=== PATIENT | female | born 1930 | race Caucasian/White ===

== ENCOUNTER 2016-11-13 11:39 | Emergency (ER) | payer MEDICARE, MEDICAID ==
[~2016-11-13] VITALS: Ht 162.6 cm; Wt 77.1 kg
[2016-11-13 12:06] LABS: MEAN PLATELET VOLUME 10.2 FL (7.4-10.4); RED BLOOD COUNT 3.38 10^6/uL (4.35-5.85); RED CELL DISTRIBUTION WIDTH 14.1 % (10.0-14.5); WHITE BLOOD COUNT 7.5 10^3/uL (4.3-11.0)
--- NOTE | 2016-11-13 12:41 | ED EENT ---
History of Present Illness General Chief Complaint: Nasal Problems Stated Complaint: NOSE BLEED Nursing Triage Note: PT HAS NOSE BLEED IN R NARES, PT FROM [place], STAFF STATES BEEN BLEEDING ON AND OFF FOR APPROX 4 HOURS Source: patient, caregiver Exam Limitations: no limitations (TIN MERRITT) History of Present Illness Time seen by provider: 11:55 Initial Comments Patient seen, evaluated, and patient care provided by Dr. Brant Zamora MD. (TIN MERRITT) Initial Comments Here from Dr. Cheek's office where patient was having nosebleed evaluated that started earlier this morning. Patient apparently Trying to blow her nose. He did use nitrate sticks and that did not stop the bleeding. Sent her here for further evaluation. Patient denies any specific pain. Nose clamp applied on arrival. Blood was from left nare. Timing/Duration: abrupt Severity: moderate Location: nose Prearrival Treatment: other Associated Symptoms: coughNo fever, nasal congestion/drainageNo sore throat ( FARHAN ZAMORA MD) Allergies and Home Medications Allergies Coded Allergies: levofloxacin (Unverified Allergy, Unknown, 10/30/16) Review of Systems Constitutional: see HPINo chills, No fever Eyes: No Symptoms Reported Ears: No Symptoms Reported Nose: see HPI congestion epistaxis Mouth: no symptoms reported Throat: no symptoms reported Respiratory: see HPI coughNo short of breath Cardiovascular: no symptoms reported Gastrointestinal: no symptoms reported (FARHAN ZAMORA MD) Past Zaqdqzq-Vyayxq-Hldejg Hx Patient Social History Alcohol Use: Denies Use Recreational Drug Use: No Smoking Status: Never a Smoker Recent Foreign Travel: No Contact w/Someone Who Travel: No Recent Infectious Disease Expo: No Recent Hopitalizations: No Physical Abuse Screen: No Sexual Abuse: No (TIN MERRITT) Alcohol Use: Denies Use Recreational Drug Use: No Smoking Status: Never a Smoker (FARHAN ZAMORA MD) Immunizations Up To Date Date of Influenza Vaccine: Aug 11, 2016 (TIN MERRITT) Seasonal Allergies Seasonal Allergies: No (TIN MERRITT) Surgeries HX Surgeries: No (UNKNOWN) (TIN MERRITT) Respiratory Hx Respiratory Disorders: No (TIN MERRITT) Hx Respiratory Disorders: No (FARHAN ZAMORA MD) Cardiovascular Hx Cardiac Disorders: Yes Cardiac Disorders: Hypertension (TIN MERRITT) Hx Cardiac Disorders: Yes Cardiac Disorders: Hypertension (FARHAN ZAMORA MD) Neurological Hx 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) Neurological Disorders: Parkinson's Disease (TIN MERRITT) Hx Neurological Disorders: Yes Neurological Disorders: Parkinson's Disease (FARHAN ZAMORA MD) Reproductive System Hx Reproductive Disorders: No (TIN MERRITT) Genitourinary Hx Genitourinary Disorders: Yes Genitourinary Disorders: Bladder Infection (TIN MERRITT) Hx Genitourinary Disorders: Yes Genitourinary Disorders: Bladder Infection (FARHAN ZAMORA MD) Gastrointestinal Hx Gastrointestinal Disorders: Yes Gastrointestinal Disorders: Gastroesophageal Reflux, Chronic Constipation (TIN MERRITT) Hx Gastrointestinal Disorders: Yes Gastrointestinal Disorders: Gastroesophageal Reflux (FARHAN ZAMORA MD) Musculoskeletal Hx Musculoskeletal Disorders: Yes (restless legs syndrome, generalized weakness ) (TIN MERRITT) Hx Musculoskeletal Disorders: Yes Musculoskeletal Disorders: Fractures (FARHAN ZAMORA MD) Endocrine Hx Endocrine Disorders: Yes Endocrine Disorders: Hypothyroidsim (TIN MERRITT) Hx Endocrine Disorders: Yes Endocrine Disorders: Hypothyroidsim (FARHAN ZAMORA MD) HEENT HX ENT Disorders: No (TIN MERRITT) HX ENT Disorders: Yes (FARHAN ZAMORA MD) Cancer Hx Cancer: No (TIN MERRITT) Psychosocial Hx Psychiatric Problems: Yes Behavioral Health Disorders: Anxiety, Depression (TIN MERRITT) Hx Psychiatric Problems: Yes Behavioral Health Disorders: Anxiety (FARHAN ZAMORA MD) Integumentary HX Skin/Integumentary Disorder: No (TIN MERRITT) Blood Transfusions Hx Blood Disorders: No (TIN MERRITT) Reviewed Nursing Assessment Reviewed/Agree w Nursing PMH: Yes (FARHAN ZAMORA MD) Physical Exam Vital Signs Vital Sign - Last 12Hours 11/13/16 11:45 Temp 97.8 Pulse 68 Resp 18 B/P 185/98 Pulse Ox 94 (FARHAN ZAMORA MD) General Appearance: WD/WN no apparent distress Eyes: bilateral eye EOMI, bilateral eye PERRL, bilateral eye normal inspection Nose: active bleeding (left nail with some blood) other (left naris some blood that stops with anterior nasal clamp) Mouth/Throat: normal mouth inspection pharynx normal Neck: full range of motion supple Cardiovascular: regular rate, rhythm no murmur Respiratory: lungs clear normal breath sounds Gastrointestinal: non tender soft Neurologic/Psychiatric: alert normal mood/affect (FARHAN ZAMORA MD) Progress/Results/Core Measures Results/Orders Lab Results Laboratory Tests Test 11/13/16 12:00 Range/Units Hematocrit 37 35-52 % Hemoglobin 12.3 11.5-16.0 G/DL Mean Corpuscular Hemoglobin 36 H 25-34 PG Mean Corpuscular Hemoglobin Concent 33 32-36 G/DL Mean Corpuscular Volume 111 H 80-99 FL Mean Platelet Volume 10.2 7.4-10.4 FL Platelet Count 267 130-400 10^3/uL Red Blood Count 3.38 L 4.35-5.85 10^6/uL Red Cell Distribution Width 14.1 10.0-14.5 % White Blood Count 7.5 4.3-11.0 10^3/uL (FARHAN ZAMORA MD) My Orders Orders-FARHAN ZAMORA MD Cbc No Diff (11/13/16 11:50) (FARHAN ZAMORA MD) Vital Signs/I&O Vital Sign - Last 12Hours 11/13/16 11:45 Temp 97.8 Pulse 68 Resp 18 B/P 185/98 Pulse Ox 94 (FARHAN ZAMORA MD) Blood Pressure Mean: 127 Progress Note : Progress Note Seen and evaluated. Nasal clamp applied. CBC ordered. No acute findings. Monitor patient. (FARHAN ZAMORA MD) Departure Impression Impression: Primary Impression: Epistaxis Disposition: SNF Condition: Improved Departure-Patient Inst. Decision time for Depature: 13:44 (TIN MERRITT) Referrals: MISAEL CHEEK MD (PCP/Family) Primary Care Physician Patient Instructions: Nosebleeds (DC) Add. Discharge Instructions: All discharge instructions reviewed with patient and/or family. Voiced understanding. Continue all current medications except aspirin. Hold aspirin 7 days. Follow-up with Dr. Cheek as an outpatient for recheck and removal of the nasal packing, call for appointment time. Return to the emergency department for worsened pain, headache, dizziness, changes in vision, fever, nosebleed, or any other concerns. TIN EMRRITT Nov 13, 2016 12:41 FARHAN ZAMORA MD Nov 13, 2016 13:01 TIN MERRITT Nov 13, 2016 12:41 FARHAN ZAMORA MD Nov 13, 2016 13:01
[2016-11-13] MEDS ORDERED: TRANEXAMIC ACID 100 MG/ML 10 ML INJECTION IV ONE (13:15)
[2016-11-13 13:54] VITALS: BP 170/88
[2017-01-25] MEDS ORDERED: LORA2ORA PO (12:05)
[2017-01-25] MEDS ORDERED: MORP100S3 PO (12:05)
== END 2016-11-13 13:54 ==
LOC: EDUNIT# 11:39 → ER 11:41
DX: R04.0 Epistaxis (principal); I10 Essential (primary) hypertension; G20 Parkinson's disease; Z79.899 Other long term (current) drug therapy
CPT/HCPCS: 36415; 85027; 99284

== ENCOUNTER → 2016-12-07 | Outpatient (CLI) | payer MEDICARE, MEDICAID ==
[~2016-12-07] MED LIST: ACET-77 PO; ACET325T49 PO; ALBU2.5V4 IH; AMOX-355 PO; ASPI-999 PO; CATHETER FLUSH 10 ML SYR IV PRN; CEFD300C3 PO; CHLO4TAB36 PO; EMOL226L TP; EXEM25TA4 PO; FAMO-119 PO; FLUT16SP22 NS; GUAI-818 PO; GUAI5SYR PO; HYDR-756 PO; HYDR500C2 PO; IOHEXOL 350 MG/ML 100 ML (OMNIPAQUE 350) VIAL IV ONE; IPRA3AMP INH; LEVO125T6 PO; LIDOCAINE 1% INJ 20 ML (XYLOCAINE) VIAL INJ ONE; LORA10CA PO; LORA10TA7 PO; LORA2ORA PO; MAGN400O7 PO; METO50TA2 PO; MORP100S3 PO; NF-HYD500C PO; NITR100C10 PO; NS 100 ML (IVPB) BAG IV ONE; PARO20TA5 PO; POLY17PO6 PO; POLY255P PO; POTA10TA36 PO; POTA10TA6 PO; PRAM0.5T2 PO; SENN-140 PO; [UNRECOGNIZED DRUG - CODE] TP; cefTRIAXone 1 GM (ROCEPHIN) VIAL IM ONE
[2016-12-07 12:11] LABS: BLOOD UREA NITROGEN 7 MG/DL (7-18); BUN/CREATININE RATIO 9; CREATININE SERUM 0.81 MG/DL (0.60-1.30); GFR ESTIMATED > 60
--- NOTE | 2016-12-07 13:13 | Diagnostic Imaging Report ---
PROCEDURE: CT head with and without contrast. TECHNIQUE: Multiple contiguous axial images were obtained through the brain before and after the administration of intravenous contrast. INDICATION: Recurrent falls, head injury, confusion, blurred vision, hypertensive patient. Exam compared 10/30/2016. FINDINGS: Chronic periventricular white matter disease unchanged while nonspecific most often attributed to the sequelae of chronic small vessel disease. There is mild cerebral cortical atrophy unchanged. Some old lacunar infarcts in the basal ganglia appeared stable. No sulcal effacement. Following IV contrast administration, there was no abnormal or suspicious parenchymal or meningeal enhancement. Some enhancement of the major dural venous sinuses. There is no abnormal extra-axial fluid collection, no shifting of the midline structures, no focal or generalized edema. The orbits, sinuses and calvarium appeared stable. IMPRESSION: Chronic senescent changes with atrophy, white matter small vessel disease and old lacunar infarcts in the basal ganglia. No hemorrhage, mass, fracture or acute pathology. No change. Results discussed with the ER physician. Dictated by: Dictated on workstation # [id number]
--- NOTE | 2017-01-21 15:18 | ED Integumentary General ---
General Stated Complaint: CONFUSION History of Present Illness Time seen by provider: 00:00 Allergies and Home Medications Allergies Coded Allergies: levofloxacin (Unverified Allergy, Unknown, 10/30/16) Home Medications Acetaminophen 325 Mg Tablet, 650 MG PO Q4H PRN for MILD PAIN/TEMP, (Reported) TAKES 2 (325 MG) TABLETS Albuterol Sulfate 2.5 Mg/3 Ml Vial.neb, 2.5 MG IH Q4H PRN for SHORTNESS OF BREATH, (Reported) Aspirin 81 Mg Tab.chew, 81 MG PO DAILY, (Reported) Cefdinir 300 Mg Capsule, 300 MG PO BID, #20 Ref 0 Prescribed by: JOSE VALIENTE on 01/21/17 1518 Chlorpheniramine Maleate 4 Mg Tablet, 4 MG PO Q8H PRN for ABNORMALITY OF GAIT, ( Reported) Emollient Combination No.40 226 Gm Lotion, TP DAILY, (Reported) Exemestane 25 Mg Tablet, 25 MG PO DAILY, (Reported) Famotidine 20 Mg Tablet, 20 MG PO DAILY PRN for GERD, (Reported) Fluticasone Propionate 16 Gm [place].susp, 2 SPRAYS NS HS, (Reported) Guaifenesin/Dextromethorphan 118 Ml Liquid, 5 ML PO EVERY 4-5 HOURS PRN for COUGH, (Reported) Hydroxyurea 500 Mg Capsule, 500 MG PO DAILY, (Reported) Levothyroxine Sodium 125 Mcg Tablet, 125 MCG PO DAILY@1000, (Reported) Loratadine 10 Mg Tablet, 10 MG PO DAILY PRN for RHINITIS, (Reported) Lorazepam 2 Mg/1 Ml Oral.conc, 1 MG PO Q3HR PRN for AGITATION, #30 Prescribed by: CARLIE DELEON on 01/25/17 1205 Magnesium Hydroxide 400 Mg/5 Ml Oral.susp, 30 ML PO DAILY PRN for CONSTIPATION, (Reported) Metoprolol Tartrate 50 Mg Tablet, 50 MG PO DAILY, (Reported) Morphine Sulfate 100 Mg/5 Ml Solution, 5 MG PO Q2H PRN for PAIN, #30 Prescribed by: CARLIE DELEON on 01/25/17 1205 Paroxetine HCl 20 Mg Tablet, 20 MG PO DAILY, (Reported) Polyethylene Glycol 3350 255 Gm Powder, 17 GM PO DAILY, (Reported) Potassium Chloride 10 Meq Tab.er.prt, 10 MEQ PO DAILY, (Reported) Pramipexole Di-HCl 0.5 Mg Tablet, 0.5 MG PO 1700, (Reported) Sennosides 8.6 Mg Tablet, 2 TAB PO HS, (Reported) Constitutional: other (duplicate chart; see earlier chart) Past Vljowzy-Avgpna-Nytzlb Hx Patient Social History Recent Foreign Travel: No Contact w/Someone Who Travel: No Recent Hopitalizations: No Immunizations Up To Date Date of Influenza Vaccine: Aug 11, 2016 Seasonal Allergies Seasonal Allergies: No Surgeries HX Surgeries: No (UNKNOWN) Respiratory Hx Respiratory Disorders: No Cardiovascular Hx Cardiac Disorders: Yes Cardiac Disorders: Hypertension Neurological Hx Neurological Disorders: Yes Neurological Disorders: Parkinson's Disease Reproductive System Hx Reproductive Disorders: No Genitourinary Hx Genitourinary Disorders: Yes Genitourinary Disorders: Bladder Infection Gastrointestinal Hx Gastrointestinal Disorders: Yes Gastrointestinal Disorders: Gastroesophageal Reflux Musculoskeletal Hx Musculoskeletal Disorders: Yes Musculoskeletal Disorders: Fractures Endocrine Hx Endocrine Disorders: Yes Endocrine Disorders: Hypothyroidsim HEENT HX ENT Disorders: Yes Cancer Hx Cancer: No Psychosocial Hx Psychiatric Problems: Yes Behavioral Health Disorders: Anxiety Integumentary HX Skin/Integumentary Disorder: No Blood Transfusions Hx Blood Disorders: No Physical Exam Vital Signs Capillary Refill : General Appearance: other (duplicate chart; see earlier charting) Departure Impression Impression: Primary Impression: Cellulitis of left upper extremity Disposition: XFER SNF Condition: Stable Departure-Patient Inst. Decision time for Depature: 15:17 Referrals: MISAEL BARRERA MD (PCP/Family) Primary Care Physician Patient Instructions: Cellulitis and Erysipelas (Skin Infections) Scripts Cefdinir (Cefdinir) 300 Mg Capsule 300 MG PO BID, #20 CAP 0 Refills Prov: JOSE VALIENTE DO 01/21/17 JOSE VALIENTE DO Jan 21, 2017 15:18
== END ==
LOC: RAD 11:32
PROVIDERS: ATTEND Family Medicine
DX: S09.90XA Unspecified injury of head, initial encounter (principal); R41.0 Disorientation, unspecified; W19.XXXA Unspecified fall, initial encounter
CPT/HCPCS: 36415; 70470; 82565; 84520

== ENCOUNTER 2016-12-22 23:39 | Inpatient (IN) | payer MEDICARE, MEDICAID ==
[~2016-12-22] VITALS: Ht 165.1 cm; Wt 74.8 kg
--- OUTSIDE RECORDS SUMMARY | 2016-12-22 23:55 | XMS REPORT | Continuity of Care Document ---
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 07/31/2013 NIKOLAI SANTILLAN MD Ot 238.71 ESSENTIAL THROMBOCYTHEMIA 11/03/2013 NIKOLAI SANTILLAN MD Ot 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 11/03/2013 NIKOLAI SANTILLAN MD Ot 238.71 ESSENTIAL THROMBOCYTHEMIA 11/03/2013 NIKOLAI SANTILLAN MD Ot 244.9 HYPOTHYROIDISM NOS 11/03/2013 NIKOLAI SANTILLAN MD Ot 401.9 HYPERTENSION NOS 11/03/2013 NIKOLAI SANTILLAN MD Ot 530.81 ESOPHAGEAL REFLUX 11/03/2013 NIKOLAI SANTILLAN MD Ot 789.00 ABDOMINAL PAIN, UNSPECIFIED SITE 11/03/2013 NIKOLAI SANTILLAN MD Ot V58.69 OTH MED,LT,CURRENT USE 02/24/2014 NIKOLAI SANTILLAN MD Ot 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 02/24/2014 NIKOLAI SANTILLAN MD Ot 238.71 ESSENTIAL THROMBOCYTHEMIA 02/24/2014 NIKOLAI SANTILLAN MD Ot 244.9 HYPOTHYROIDISM NOS 02/24/2014 NIKOLAI SANTILLAN MD Ot 401.9 HYPERTENSION NOS 02/24/2014 NIKOLAI SANTILLAN MD Ot 530.81 ESOPHAGEAL REFLUX 02/24/2014 NIKOLAI SANTILLAN MD Ot 577.9 PANCREATIC DISEASE NOS 02/24/2014 NIKOLAI SANTILLAN MD Ot 789.00 ABDOMINAL PAIN, UNSPECIFIED SITE 02/24/2014 NIKOLAI SANTILLAN MD Ot V58.69 OTH MED,LT,CURRENT USE 09/29/2014 MISAEL BARRERA MD R Ot V76.12 09/23/2015 ABI BARRERA MDYD R Ot Z12.31 10/04/2015 BRUCE PACE, MISAEL R Ot Z12.31 10/30/2016 Ot 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 10/30/2016 Ot 238.71 ESSENTIAL THROMBOCYTHEMIA 10/30/2016 Ot 244.9 HYPOTHYROIDISM NOS 10/30/2016 Ot 401.9 HYPERTENSION NOS 10/30/2016 Ot 530.81 ESOPHAGEAL REFLUX 10/30/2016 Ot 789.00 ABDOMINAL PAIN, UNSPECIFIED SITE 10/30/2016 Ot V58.69 OTH MED,LT,CURRENT USE 10/30/2016 NICK DO, MARY K Ot G20 PARKINSON'S DISEASE 10/30/2016 NICK DO, MARY K Ot G25.81 RESTLESS LEGS SYNDROME 10/30/2016 NICK DO, MARY K Ot R41.82 ALTERED MENTAL STATUS, UNSPECIFIED 10/31/2016 NICK DO, MARY K Ot G20 PARKINSON'S DISEASE 10/31/2016 NICK DO, MARY K Ot G25.81 RESTLESS LEGS SYNDROME 10/31/2016 NICK DO, MARY K Ot R41.82 ALTERED MENTAL STATUS, UNSPECIFIED 11/02/2016 Ot 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 11/02/2016 TYRELL PACE, NIKOLAI Burris Ot V10.3 HX OF BREAST MALIGNANCY 11/02/2016 TYRELL PACE, NIKOLAI Burris Ot V76.11 SCRN MAMMO-HIGH RISK PT, MALIGNANT NEOPL 11/02/2016 TARA PACE, OBINNA Vela Ot 719.45 JOINT PAIN-PELVIS 11/02/2016 TYRELL PACE, NIKOLAI Burris Ot 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 11/02/2016 NIKOLAI SANTILLAN MD Ot 553.3 DIAPHRAGMATIC HERNIA 11/02/2016 NIKOLAI SANTILLAN MD Ot 577.9 PANCREATIC DISEASE NOS 11/02/2016 NIKOLAI SANTILLAN MD Ot 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 11/02/2016 TYRELL PACE, NIKOLAI Burris Ot 441.4 ABDOM AORTIC ANEURYSM 11/02/2016 NIKOLAI SANTILLAN MD Ot 553.3 DIAPHRAGMATIC HERNIA 11/02/2016 TYRELL PACE, NIKOLAI Burris Ot 789.00 ABDOMINAL PAIN, UNSPECIFIED SITE 11/02/2016 TYRELL PACE, NIKOLAI Burris Ot 793.6 NOSP (ABN) FINDINGS ON RADIOLOGICAL OT 11/02/2016 Ot 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 11/02/2016 Ot 238.71 ESSENTIAL THROMBOCYTHEMIA 11/02/2016 Ot 244.9 HYPOTHYROIDISM NOS 11/02/2016 Ot 401.9 HYPERTENSION NOS 11/02/2016 Ot 530.81 ESOPHAGEAL REFLUX 11/02/2016 Ot 789.00 ABDOMINAL PAIN, UNSPECIFIED SITE 11/02/2016 Ot V58.69 OTH MED,LT,CURRENT USE 11/02/2016 MISAEL BARRERA MD R Ot 786.2 COUGH 11/02/2016 MISAEL BARRERA MD R Ot V76.12 OTH SCREEN MAMMO-MALIGN NEOPLASM OF MARKOS 11/02/2016 MISAEL BARRERA MD Ot Z12.31 ENCNTR SCREEN MAMMOGRAM FOR MALIGNANT NE 11/13/2016 TIN STOCK Ot G20 PARKINSON'S DISEASE 11/13/2016 TIN STOCK Ot I10 ESSENTIAL (PRIMARY) HYPERTENSION 11/13/2016 TIN STOCK Ot R04.0 EPISTAXIS 11/13/2016 TIN STOCK Ot Z79.899 OTHER LABOR RELATIONS MANAGER (CURRENT) DRUG THERAPY 11/15/2016 TIN STOCK Ot G20 PARKINSON'S DISEASE 11/15/2016 TIN STOCK Ot I10 ESSENTIAL (PRIMARY) HYPERTENSION 11/15/2016 TIN STOCK Ot R04.0 EPISTAXIS 11/15/2016 TIN STOCK Ot Z79.899 OTHER SENIOR CARE (CURRENT) DRUG THERAPY Procedures Results Test Result Range Complete blood count (CBC) with automated white blood cell (WBC) differential - 10/30/16 00:32 Blood leukocytes automated count (number/volume) 6.3 10*3/ uL 4.3-11.0 Blood erythrocytes automated count (number/volume) 3.18 10*6 /uL 4.35-5.85 Venous blood hemoglobin measurement (mass/volume) 11.7 g/dL 11.5-16.0 Blood hematocrit (volume fraction) 36 % 35-52 Automated erythrocyte mean corpuscular volume 112 [foz_us] 80-99 Automated erythrocyte mean corpuscular hemoglobin (mass per erythrocyte) 37 pg 25-34 Automated erythrocyte mean corpuscular hemoglobin concentration measurement ( mass/volume) 33 g/dL 32-36 Automated erythrocyte distribution width ratio 13.1 % 10.0-14.5 Automated blood platelet count (count/volume) 258 10*3/uL 130-400 Automated blood platelet mean volume measurement 10.0 [foz_ us] 7.4-10.4 Automated blood neutrophils/100 leukocytes 50 % 42-75 Automated blood lymphocytes/100 leukocytes 25 % 12-44 Blood monocytes/100 leukocytes 22 % 0-12 Automated blood eosinophils/100 leukocytes 2 % 0-10 Automated blood basophils/100 leukocytes 1 % 0-10 Blood neutrophils automated count (number/volume) 3.1 10*3 1.8-7.8 Blood lymphocytes automated count (number/volume) 1.6 10*3 1.0-4.0 Blood monocytes automated count (number/volume) 1.4 10*3 0.0-1.0 Automated eosinophil count 0.2 10*3/uL 0.0-0.3 Automated blood basophil count (count/volume) 0.0 10*3/uL 0.0-0.1 Comprehensive metabolic panel - 10/30/16 00:32 Serum or plasma sodium measurement (moles/volume) 130 mmol/ L 135-145 Serum or plasma potassium measurement (moles/volume) 4.4 mmol/L 3.6-5.0 Serum or plasma chloride measurement (moles/volume) 98 mmol/ L 98-107 Carbon dioxide 23 mmol/L 21-32 Serum or plasma anion gap determination (moles/volume) 9 mmol/L 5-14 Serum or plasma urea nitrogen measurement (mass/volume) 10 mg/dL 7-18 Serum or plasma creatinine measurement (mass/volume) 0.84 mg /dL 0.60-1.30 Serum or plasma urea nitrogen/creatinine mass ratio 12 NRG Serum or plasma creatinine measurement with calculation of estimated glomerular filtration rate > NRG Serum or plasma glucose measurement (mass/volume) 123 mg/dL 70-105 Serum or plasma calcium measurement (mass/volume) 8.8 mg/dL 8.5-10.1 Serum or plasma total bilirubin measurement (mass/volume) 0.4 mg/dL 0.1-1.0 Serum or plasma alkaline phosphatase measurement (enzymatic activity/volume) 79 U/L 40-136 Serum or plasma aspartate aminotransferase measurement (enzymatic activity/ volume) 20 U/L 5-34 Serum or plasma alanine aminotransferase measurement (enzymatic activity/volume ) 15 U/L 0-55 Serum or plasma protein measurement (mass/volume) 6.2 g/dL 6.4-8.2 Serum or plasma albumin measurement (mass/volume) 3.7 g/dL 3.2-4.5 PT panel in platelet poor plasma by coagulation assay - 10/30/16 00:32 Prothrombin time (PT) in platelet poor plasma by coagulation assay 12.8 s 12.2-14.7 INR in platelet poor plasma or blood by coagulation assay 1.0 0.8-1.4 Activated partial thromboplastin time (aPTT) in platelet poor plasma bycoagulation assay - 10/30/16 00:32 Activated partial thromboplastin time (aPTT) in platelet poor plasma bycoagulation assay 30 s 24-35 Serum or plasma troponin i.cardiac measurement (mass/volume) - 10/30/16 00:32 Serum or plasma troponin i.cardiac measurement (mass/volume) < ng/mL <0.30 Serum or plasma thyroxine (T4) free measurement (mass/volume) - 10/30/16 00:32 Serum or plasma thyroxine (T4) free measurement (mass/volume) 1.33 ng/dL 0.70-1.48 Serum or plasma thyrotropin measurement by detection limit <=0.05 miu/l (units/ volume) - 10/30/16 00:32 Serum or plasma thyrotropin measurement by detection limit <=0.05 miu/l (units/ volume) 0.29 u[iU]/mL 0.35-4.94 Complete urinalysis with reflex to culture - 10/30/16 02:35 Urine color determination YELLOW NRG Urine clarity determination CLEAR NRG Urine pH measurement by test strip 6 5- 9 Specific gravity of urine by test strip 1.015 1.016-1.022 Urine protein assay by test strip, semi-quantitative 3+ NEGATIVE Urine glucose detection by automated test strip NEGATIVE NEGATIVE Erythrocytes detection in urine sediment by light microscopy 1+ NEGATIVE Urine ketones detection by automated test strip NEGATIVE NEGATIVE Urine nitrite detection by test strip NEGATIVE NEGATIVE Urine total bilirubin detection by test strip NEGATIVE NEGATIVE Urine urobilinogen measurement by automated test strip (mass/volume) NORMAL NORMAL Urine leukocyte esterase detection by dipstick NEGATIVE NEGATIVE Automated urine sediment erythrocyte count by microscopy (number/high power field) [HPF] NRG Automated urine sediment leukocyte count by microscopy (number/high power field ) NONE NRG Bacteria detection in urine sediment by light microscopy NEGATIVE NRG Squamous epithelial cells detection in urine sediment by light microscopy 10-25 NRG Crystals detection in urine sediment by light microscopy NONE NRG Casts detection in urine sediment by light microscopy NONE NRG Mucus detection in urine sediment by light microscopy NEGATIVE NRG Complete urinalysis with reflex to culture NO NRG Automated blood complete blood count (hemogram) panel - 11/13/16 12:00 Blood leukocytes automated count (number/volume) 7.5 10*3/ uL 4.3-11.0 Blood erythrocytes automated count (number/volume) 3.38 10*6 /uL 4.35-5.85 Venous blood hemoglobin measurement (mass/volume) 12.3 g/dL 11.5-16.0 Blood hematocrit (volume fraction) 37 % 35-52 Automated erythrocyte mean corpuscular volume 111 [foz_us] 80-99 Automated erythrocyte mean corpuscular hemoglobin (mass per erythrocyte) 36 pg 25-34 Automated erythrocyte mean corpuscular hemoglobin concentration measurement ( mass/volume) 33 g/dL 32-36 Automated erythrocyte distribution width ratio 14.1 % 10.0-14.5 Automated blood platelet count (count/volume) 267 10*3/uL 130-400 Automated blood platelet mean volume measurement 10.2 [foz_ us] 7.4-10.4 [id number] - 12/07/16 11:49 Serum or plasma urea nitrogen measurement (mass/volume) 7 mg /dL 7-18 Serum or plasma creatinine measurement (mass/volume) 0.81 mg /dL 0.60-1.30 Serum or plasma urea nitrogen/creatinine mass ratio 9 NRG Serum or plasma creatinine measurement with calculation of estimated glomerular filtration rate > NRG Encounters ACCT No. Visit Date/Time Discharge Status Pt. Type Provider Facility Loc./Unit Complaint [id number] 11/13/2016 11:41:00 2016 13:54:00 DIS Emergency TIN STOCK [facility] ER NOSE BLEED [id number] 10/30/2016 00:04:00 2015 03:36:00 DIS Emergency MARY ROMERO DO [facility] [address] ER AMS [id number] 09/02/2015 13:14:00 2014 23:59:59 CLS Outpatient MISAEL BARRERA MD [facility] RAD SCREENING [id number] 08/27/2014 13:42:00 2013 23:59:59 CLS Outpatient MISAEL BARRERA MD [facility] [address] [facility] RAD ROUTINE [id number] 08/11/2014 15:32:00 2013 23:59:59 CLS Outpatient MISAEL BARRERA MD [facility] [address] [facility] RAD COUGH X 2 WEEKS [id number] 01/28/2014 13:38:00 2013 00:01:00 DIS Outpatient NIKOLAI SANTILLAN MD [facility] [address] [facility] ONC [id number] 02/18/2014 13:32:00 2013 23:59:59 CLS Outpatient NIKOLAI SANTILLAN MD [facility] RAD CA OF BREAST, ABD PAIN [id number] 09/09/2013 13:00:00 2012 00:01:00 DIS Outpatient NIKOLAI SANTILLAN MD [facility] ONC [id number] 09/15/2013 10:03:00 2012 23:59:59 CLS Outpatient NIKOLAI SANTILLAN MD [facility] RAD HX OF BREAST CA, ABD PAIN [id number] 08/27/2013 15:59:00 2012 23:59:59 CLS Outpatient OBINNA PACHECO MD [facility] RAD INCREASED PAIN [id number] 08/12/2013 14:24:00 2012 23:59:59 CLS Outpatient NIKOLAI SANTILLAN MD [facility] RAD BREAST CA [id number] 07/20/2013 13:32:00 2012 14:19:00 DIS Outpatient NIKOLAI SANTILLAN MD [facility] ONC [id number] 12/07/2016 11:32:00 ACT Outpatient MISAEL BARRERA MD [facility] RAD CONFUSION [id number] 02/25/2014 00:00:00 Document Registration [id number] 02/04/2013 13:24:00 Document Registration [id number] 01/27/2013 08:29:00 Document Registration
[2016-12-23] VITALS (20 sets, daily range): BP systolic 91–150; BP diastolic 53–125
--- NOTE | 2016-12-23 00:19 | ED Dyspnea ---
General Chief Complaint: Respiratory Problems Stated Complaint: AMS Source of Information: Patient, EMS, Half-Way Records, RN Notes Reviewed Exam Limitations: Physical Impairments History of Present Illness Time Seen by Provider: 00:19 Initial Comments Sent over from [facility] by EMS c/ c/o being SOA beginning earlier in the day. Patient c/ course, deep cough. Reportedly on Macrobid which is being changed to I believe Ceftin beginning 12 AM secondary to it causing SOA. Reportedly neb treatments had also been ordered for the patient but I'm not sure if they were given or not. No noted of any fever. Timing/Duration: 4-6 Hours Severity: Moderate Activities at Onset: None Prior Episodes/Possible Cause: Occasional Episodes Modifying Factors: Worse With Coughing Associated Symptoms: Cough Allergies and Home Medications Allergies Coded Allergies: levofloxacin (Unverified Allergy, Unknown, 10/30/16) Constitutional: see HPI Respiratory: see HPI cough short of breath All Other Systems Reviewed Negative Unless Noted: Yes (Negative excepted noted.) Past Ookewho-Zcjaoo-Wemryk Hx Patient Social History Alcohol Use: Denies Use Recreational Drug Use: No Smoking Status: Unknown if Ever Smoked Recent Hopitalizations: No Immunizations Up To Date Date of Influenza Vaccine: Aug 11, 2016 Seasonal Allergies Seasonal Allergies: No Surgeries HX Surgeries: No (UNKNOWN) Respiratory Hx Respiratory Disorders: No Cardiovascular Hx Cardiac Disorders: Yes Cardiac Disorders: Hypertension Neurological Hx Neurological Disorders: Yes Neurological Disorders: Parkinson's Disease Reproductive System Hx Reproductive Disorders: No Genitourinary Hx Genitourinary Disorders: Yes Genitourinary Disorders: Bladder Infection Gastrointestinal Hx Gastrointestinal Disorders: Yes Gastrointestinal Disorders: Gastroesophageal Reflux Musculoskeletal Hx Musculoskeletal Disorders: Yes Musculoskeletal Disorders: Fractures Endocrine Hx Endocrine Disorders: Yes Endocrine Disorders: Hypothyroidsim HEENT HX ENT Disorders: Yes Cancer Hx Cancer: No Psychosocial Hx Psychiatric Problems: Yes Behavioral Health Disorders: Anxiety Integumentary HX Skin/Integumentary Disorder: No Blood Transfusions Hx Blood Disorders: No Physical Exam Vital Signs Vital Sign - Last 12Hours 12/22/16 23:39 Temp 98.8 Pulse 79 Resp 20 B/P 141/80 O2 Delivery Nasal Cannula O2 Flow Rate 2 Capillary Refill : General Appearance: No Apparent Distress WD/WN HEENT: Normal ENT Inspection Neck: Supple Respiratory: No Respiratory Distress Crackles Cardiovascular: Regular Rate, Rhythm Gastrointestinal: Soft Tenderness (upper abdomen is tender) Rectal: Deferred Neurologic/Psychiatric: Alert Skin: Warm/Dry Progress/Results/Core Measures Results/Orders Lab Results Laboratory Tests Test 12/23/16 00:30 12/23/16 01:30 12/23/16 03:14 Range/Units Activated Partial Thromboplast Time 33 24-35 SEC Alanine Aminotransferase (ALT/SGPT) 2688 H 0-55 U/L Albumin 3.4 3.2-4.5 G/DL Alkaline Phosphatase 255 H 40-136 U/L Anion Gap 17 H 5-14 MMOL/L Aspartate Amino Transf (AST/SGOT) 4581 H 5-34 U/L B-Type Natriuretic Peptide 1363.5 H <100.0 PG/ML BUN/Creatinine Ratio 16 Basophils # (Auto) 0.0 0.0-0.1 10^3/uL Basophils (%) (Auto) 0 0-10 % Blood Urea Nitrogen 14 7-18 MG/DL Calcium Level 9.0 8.5-10.1 MG/DL Carbon Dioxide Level 17 L 21-32 MMOL/L Chloride Level 99 98-107 MMOL/L Creatinine 0.89 0.60-1.30 MG/DL Eosinophils # (Auto) 0.0 0.0-0.3 10^3/uL Eosinophils (%) (Auto) 0 0-10 % Estimat Glomerular Filtration Rate 60 Glucose Level 69 L 70-105 MG/DL Hematocrit 35 35-52 % Hemoglobin 12.3 11.5-16.0 G/DL INR Comment 2.2 H 0.8-1.4 Lipase 22 8-78 U/L Lymphocytes # (Auto) 0.9 L 1.0-4.0 X 10^3 Lymphocytes (%) (Auto) 5 L 12-44 % Magnesium Level 1.9 1.8-2.4 MG/DL Mean Corpuscular Hemoglobin 37 H 25-34 PG Mean Corpuscular Hemoglobin Concent 35 32-36 G/DL Mean Corpuscular Volume 107 H 80-99 FL Mean Platelet Volume 10.4 7.4-10.4 FL Monocytes # (Auto) 5.2 H 0.0-1.0 X 10^3 Monocytes (%) (Auto) 25 H 0-12 % Neutrophils # (Auto) 14.3 H 1.8-7.8 X 10^3 Neutrophils (%) (Auto) 70 42-75 % Platelet Count 219 130-400 10^3/uL Potassium Level 4.4 3.6-5.0 MMOL/L Prothrombin Time 24.4 H 12.2-14.7 SEC Red Blood Count 3.30 L 4.35-5.85 10^6/uL Red Cell Distribution Width 16.2 H 10.0-14.5 % Sodium Level 133 L 135-145 MMOL/L Total Bilirubin 3.0 H 0.1-1.0 MG/DL Total Protein 6.2 L 6.4-8.2 G/DL Troponin I < 0.30 <0.30 NG/ML White Blood Count 20.5 H 4.3-11.0 10^3/uL Lactic Acid Level 4.6 *H 4.2 *H 0.5-2.0 MMOL/L My Orders Orders-JOSE VALIENTE DO Ekg Tracing (12/23/16 00:19) BNP (12/23/16 00:19) Cbc With Automated Diff (12/23/16 00:19) Comprehensive Metabolic Panel (12/23/16 00:19) Magnesium (12/23/16 00:19) Troponin I (12/23/16 00:19) Ua Culture If Indicated (12/23/16 00:19) Chest 1 View, Ap/Pa Only (12/23/16 00:19) Lactic Acid Analyzer (12/23/16 01:18) Lipase (12/23/16 01:18) Blood Culture (12/23/16 01:18) Piperacillin Sodium/Tazobactam (Zosyn Vi (12/23/16 02:00) Ct Abdomen/Pelvis W (12/23/16 01:58) Ct Chest Wo (12/23/16 01:58) Protime With Inr (12/23/16 02:26) Partial Thromboplastin Time (12/23/16 02:26) Vancomycin Iv Add-Ward (Vancomycin Iv (12/23/16 03:30) Hepatitis Panel Acute (12/23/16 03:33) Saline Lock/Iv-Start (12/23/16 03:58) Lactated Ringers (Lr 1000 Ml Iv Solution (12/23/16 04:00) Medications Given in ED Current Medications Medications Dose Ordered Sig/Josette Route Start Time Stop Time Status Last Admin Dose Admin Piperacillin Sod/ Tazobactam Sod 4.5 gm/Sodium Chloride 100 ml @ 200 mls/hr ONCE ONCE IV 12/23/16 02:00 12/23/16 02:29 DC 12/23/16 02:42 200 MLS/HR Vancomycin HCl/ Sodium Chloride 250 ml @ 250 mls/hr ONCE ONCE IV 12/23/16 03:30 12/23/16 04:29 12/23/16 03:45 250 MLS/HR Vital Signs/I&O Vital Sign - Last 12Hours 12/22/16 23:39 Temp 98.8 Pulse 79 Resp 20 B/P 141/80 O2 Delivery Nasal Cannula O2 Flow Rate 2 ECG Initial ECG Impression Date: Dec 23, 2016 Initial ECG Impression Time: 00:39 Initial ECG Rate: 86 Initial ECG Rhythm: Normal Sinus Initial ECG Impression: Nonspecific Changes (RAD) Initial ECG Comparisson: No Previous ECG Available Diagnostic Imaging Diagonstic Imaging: Xray, CT Plain Films/CT/US/NM/MRI: chest, abdomen, pelvis [facility]ed: [facility] Communication Time/Spoke to Admitting Phy: 03:40 Impression Impression: Primary Impression: Dyspnea Additional Impressions: Neutrophilic leukocytosis Acute hepatitis Elevated lactic acid level Disposition: ADMITTED INPATIENT Condition: Stable Decision to Admit Reason: Admit from ER (General) Decision to Admit/Date: Dec 23, 2016 Time/Decision to Admit Time: 03:40 Departure-Patient Inst. Referrals: MISAEL BARRERA MD (PCP/Family) Primary Care Physician JOSE VALIENTE DO Dec 23, 2016 00:19
[2016-12-23 00:41] LABS: BASOPHILS % (AUTO) 0 % (0-10); EOSINOPHILS % (AUTO) 0 % (0-10); LYMPHOCYTES # (AUTO) 0.9 X 10^3 (1.0-4.0); LYMPHOCYTES % (AUTO) 5 % (12-44); MEAN CORPUSCULAR HEMOGLOBIN 37 PG (25-34); MEAN CORPUSCULAR HGB CONC 35 G/DL (32-36); MEAN CORPUSCULAR VOLUME 107 FL (80-99); MEAN PLATELET VOLUME 10.4 FL (7.4-10.4); MONOCYTES # (AUTO) 5.2 X 10^3 (0.0-1.0); MONOCYTES % (AUTO) 25 % (0-12); NEUTROPHILS # (AUTO) 14.3 X 10^3 (1.8-7.8); NEUTROPHILS % (AUTO) 70 % (42-75); PLATELET COUNT 219 10^3/uL (130-400); RED CELL DISTRIBUTION WIDTH 16.2 % (10.0-14.5); WHITE BLOOD COUNT 20.5 10^3/uL (4.3-11.0)
[2016-12-23 01:03] LABS: ALANINE AMINOTRANSFERASE 2688 U/L (0-55); ALBUMIN 3.4 G/DL (3.2-4.5); ANION GAP 17 MMOL/L (5-14); BLOOD UREA NITROGEN 14 MG/DL (7-18); BUN/CREATININE RATIO 16; CARBON DIOXIDE 17 MMOL/L (21-32); CHLORIDE 99 MMOL/L (98-107); CREATININE SERUM 0.89 MG/DL (0.60-1.30); GFR ESTIMATED 60; GLUCOSE 69 MG/DL (70-105); MAGNESIUM 1.9 MG/DL (1.8-2.4); POTASSIUM 4.4 MMOL/L (3.6-5.0); SODIUM 133 MMOL/L (135-145); TOTAL PROTEIN 6.2 G/DL (6.4-8.2)
[2016-12-23 01:09] LABS: TROPONIN I < 0.30 NG/ML (<0.30)
[2016-12-23 01:45] LABS: ASPARTATE AMINO TRANSFERASE 4581 U/L (5-34)
[2016-12-23] MEDS ORDERED: PIPERACILLIN SODIUM/TAZOBACTAM 4.5 GM in NS (IVPB) 100 ML IV ONE (02:00)
[2016-12-23 02:35] LABS: INR 2.2 (0.8-1.4); PROTHROMBIN TIME PATIENT 24.4 SEC (12.2-14.7)
[2016-12-23] MEDS ORDERED: VANCOMYCIN IV ADD-VANTAGE 1,000 MG in SODIUM CHLORIDE (ADD-VANTAGE) 250 ML IV ONE (03:30)
[2016-12-23] MEDS ORDERED: LACTATED RINGERS 2,500 ML IV ONE (04:00)
[2016-12-23] MEDS ORDERED: LACTATED RINGERS 0 ML IV ONE (04:34)
[2016-12-23 05:10] LABS: BILIRUBIN,URINE NEGATIVE (NEGATIVE); KETONES,URINE NEGATIVE (NEGATIVE); LEUKOCYTE ESTERASE ,URINE 1+ (NEGATIVE); NITRITE,URINE NEGATIVE (NEGATIVE); PH,URINE 6.5 (5-9); PROTEIN,URINE 3+ (NEGATIVE); UROBILINOGEN,URINE 1 MG/DL (NORMAL)
[2016-12-23] MEDS ORDERED: NS IV 1000 ML 3,000 ML ONE (05:13)
[2016-12-23 05:22] LABS: WBC,URINE RARE /HPF
[2016-12-23] MEDS: NS IV 1000 ML 1,000 ML IV SCH ×4 (05:30→08:14)
[2016-12-23 05:49] LABS: BASOPHILS % (AUTO) 0 % (0-10); EOSINOPHILS % (AUTO) 0 % (0-10); LYMPHOCYTES % (AUTO) 5 % (12-44); MEAN CORPUSCULAR HEMOGLOBIN 37 PG (25-34); MEAN CORPUSCULAR HGB CONC 35 G/DL (32-36); MEAN CORPUSCULAR VOLUME 106 FL (80-99); MEAN PLATELET VOLUME 11.2 FL (7.4-10.4); MONOCYTES # (AUTO) 4.9 X 10^3 (0.0-1.0); MONOCYTES % (AUTO) 24 % (0-12); NEUTROPHILS # (AUTO) 14.2 X 10^3 (1.8-7.8); NEUTROPHILS % (AUTO) 71 % (42-75); PLATELET COUNT 223 10^3/uL (130-400); RED BLOOD COUNT 3.34 10^6/uL (4.35-5.85); RED CELL DISTRIBUTION WIDTH 16.3 % (10.0-14.5); WHITE BLOOD COUNT 20.1 10^3/uL (4.3-11.0)
[2016-12-23 06:06] LABS: ANION GAP 13 MMOL/L (5-14); BLOOD UREA NITROGEN 14 MG/DL (7-18); BUN/CREATININE RATIO 16; CALCIUM 8.6 MG/DL (8.5-10.1); CARBON DIOXIDE 20 MMOL/L (21-32); CHLORIDE 101 MMOL/L (98-107); CREATININE SERUM 0.85 MG/DL (0.60-1.30); GFR ESTIMATED > 60; GLUCOSE 81 MG/DL (70-105); MAGNESIUM 1.8 MG/DL (1.8-2.4); PHOSPHORUS 2.8 MG/DL (2.3-4.7); POTASSIUM 4.1 MMOL/L (3.6-5.0); SODIUM 134 MMOL/L (135-145)
[2016-12-23] MEDS ORDERED: NS IV 1000 ML 1,000 ML IV SCH (06:45)
[2016-12-23] MEDS ORDERED: RT-ALBUTEROL/IPRATROPIUM 3 ML (DUONEB) VIAL IH PRN (06:45)
--- NOTE | 2016-12-23 07:04 | Diagnostic Imaging Report ---
INDICATION: Cough, shortness of air EXAMINATION: Chest 12/23/2016 COMPARISON: 10/30/2016 FINDINGS: Cardiomegaly is noted. Prominent right hilum is seen slightly more pronounced than on previous imaging. There may be mild infiltrate at both lung bases. There are no significant effusions. IMPRESSION: 1. Bibasilar atelectasis versus early infiltrate. 2 Cardiomegaly. 3. Prominent right hilum nonspecific lymphadenopathy not excluded CT imaging would be of use. Dictated by: Dictated on workstation # [id number]
--- NOTE | 2016-12-23 07:59 | Diagnostic Imaging Report ---
PROCEDURE: CT chest without contrast. TECHNIQUE: Multiple contiguous axial images were obtained through the chest without the use of intravenous contrast. INDICATION: Shortness of breath. COMPARISON: Chest radiograph 12/23/2016. FINDINGS: Ectasia of the ascending aorta measuring up to 45 mm. Coarse arterial calcifications including coronary and aortic. Prominent but subcentimeter mediastinal lymph nodes. No hilar lymphadenopathy. Small bilateral pleural effusions. Scattered scarring, bronchiectasis and centrilobular emphysematous changes. 9 mm pulmonary nodule in the lingula. Moderate esophageal hiatal hernia. Cholecystectomy. Postoperative changes in the left axilla. Degenerative changes in the spine. Demineralization. IMPRESSION: 1. Ascending aortic aneurysm measuring up to 45 mm. No evidence of rupture on this noncontrast examination. 2. Chronic changes in the lungs including scattered scarring, bronchiectasis and emphysematous changes in the lungs. Small bilateral pleural effusions. 3. Indeterminate 9 mm pulmonary nodule in the lingula. Recommendations would include followup CT at 3, 9 and 24 months versus FDG PET/CT versus biopsy. Dictated by: Dictated on workstation # [id number]
--- NOTE | 2016-12-23 08:08 | Diagnostic Imaging Report ---
PROCEDURE: CT abdomen and pelvis with contrast. TECHNIQUE: Multiple contiguous axial images were obtained through the abdomen and pelvis after administration of intravenous contrast. INDICATION: Abdominal pain. COMPARISON: CT abdomen and pelvis without and with IV contrast 02/18/2014. FINDINGS: Examination limited by motion artifact. Moderate esophageal hiatal hernia. Small bilateral pleural effusions. Cholecystectomy. Atrophic pancreas. Diffuse cortical thinning of both kidneys and scattered cysts. No definite renal masses. No hydronephrosis. Colonic diverticulosis without evidence of diverticulitis. Left [place] obscures the pelvis. Degenerative changes in the lumbar spine. Demineralization. Diffuse degenerative changes in the visualized spine. Compression deformity and sclerosis in the S2 segment is suspicious for a sacral insufficiency fracture. Diffuse arterial calcifications without aneurysm or dissection. The liver, adrenal glands and spleen are unremarkable. The appendix is not identified and may be surgically absent. No suspicious inflammatory changes in the region of the cecum. No lymphadenopathy, free intraperitoneal air/fluid or evidence of bowel obstruction. IMPRESSION: 1. No acute CT findings in the abdomen or pelvis. 2. Probable S2 sacral insufficiency fracture. Dictated by: Dictated on workstation # [id number]
[2016-12-23] MEDS: PIPERACILLIN/TAZOBACTAM 4.5 GM/NS100 ML IVPB IV SCH ×4 (08:48→16:54)
[2016-12-23] MEDS ORDERED: RT-ALBUTEROL/IPRATROPIUM 3 ML (DUONEB) VIAL IH SCH (09:00)
[2016-12-23] MEDS ORDERED: CATHETER FLUSH 10 ML SYR IV PRN (09:45)
[2016-12-23] MEDS ORDERED: PHYTONADIONE (VIT. K) 10 MG/ML AMP IM NR (11:00)
--- NOTE | 2016-12-23 11:06 | History & Physical-Hospitalist ---
HPI History of Present Illness: HPI/Chief Complaint I was contacted initially by shelter staff about Mrs. Johnson the afternoon of the with reports that she had a croupy cough and was finishing a round of Macrobid. They're concerned about her cough and her oxygen level had been in the low 90s. I advised that discontinue Macrobid give her Ceftin a breathing treatment with albuterol and continue every 4 hours when necessary. She is 86 quite frail with DO NOT RESUSCITATE status. I highly doubt there were able to give her any antibiotic. I wasn't told of any nausea or abdominal pain did not hear anything back until I was contacted by the emergency room physician after her emergency room workup including CT scan of chest pelvis which did not reveal any evidence for infectious sites. Most notable laboratory evaluation was profound hepatitis with leukocytosis with neutrophilia and a lactate level little over 4 and an INR of 2.2 in individual who does not have any documented anticoagulant usage. She was subsequently admitted for further investigation of her hepatitis. She is confused and unable to provide any history. She apparently has a history of Parkinson's disease is usually pleasant but has cognitive impairment. She is a patient of Dr. Cheek's. Date Seen 12/23/16 Attending Physician Hafsa Jin MD PCP Jacob Cheek MD Referring Physician Date of Admission Dec 23, 2016 at 04:10 Home Medications & Allergies Home Medications Reviewed patient Home Medication Reconciliation Form Allergies Coded Allergies: levofloxacin (Unverified Allergy, Unknown, 10/30/16) Past Ruhgqxp-Jiekca-Lnbtkd Hx Patient Social History Alcohol Use: Denies Use Recreational Drug Use: No Smoking Status: Unknown if Ever Smoked Physical Abuse Screen: No Sexual Abuse: No Recent Foreign Travel: No Contact w/other who traveled: No Recent Hopitalizations: No Recent Infectious Disease Expo: No Immunizations Up To Date Date of Influenza Vaccine: Aug 11, 2016 Seasonal Allergies Seasonal Allergies: Yes Surgeries HX Surgeries: No (UNKNOWN) Respiratory Hx Respiratory Disorders: No Cardiovascular Hx Cardiovascular Disorders: Yes Cardiac Disorders: Hypertension Neurological Hx Neurological Disorders: Yes Neurological Disorders: Parkinson's Disease Reproductive System Hx Reproductive Disorders: No Sexually Transmitted Disease: No HIV/AIDS: No Genitourinary Hx Genitourinary Disorders: Yes Genitourinary Disorders: UTI-Chronic Gastrointestinal Hx Gastrointestinal Disorders: Yes Gastrointestinal Disorders: Gastroesophageal Reflux, Chronic Constipation Musculoskeletal Hx Musculoskeletal Disorders: Yes Musculoskeletal Disorders: Fractures Endocrine Hx Endocrine Disorders: Yes Endocrine Disorders: Hypothyroidsim HEENT HX ENT Disorders: Yes Cancer Hx Cancer: No Psychosocial Hx Psychiatric Problems: Yes Behavioral Health Disorders: Anxiety, Depression Integumentary HX Skin/Integumentary Disorder: No Blood Transfusions Hx Blood Disorders: No Review of Systems ROS-Unable to Obtain: due to confusion unable to provide Constitutional: see HPI Physical Exam Physical Exam Vital Signs Vital Sign - Last 12Hours 12/22/16 23:39 Temp 98.8 Pulse 79 Resp 20 B/P 141/80 O2 Delivery Nasal Cannula O2 Flow Rate 2 Capillary Refill : Less Than 3 Seconds General Appearance: Chronically ill Mild Distress Respiratory: Chest Non Tender No Accessory Muscle Use No Respiratory Distress Other (diminished breath sounds posteriorly but for the most part her chest is clear there is mild tachypnea with a respiratory rate of 18) Cardiovascular: Regular Rate, Rhythm No Edema No Gallop No JVD No Murmur Normal Peripheral Pulses Gastrointestinal: Other (patient does react with some mild guarding to palpation of the right upper quadrant of the abdomen there is mild abdominal distention bowel sounds are not present no masses present so not able to appreciate evidence for organomegaly.) Extremity: No Pedal Edema Other (there is a shallow clean appearing ulceration of the distal left tibia) Neurologic/Psychiatric: Depressed Affect Other (no tremors noted.) Skin: Pallor Comments Laboratory Tests Test 12/23/16 00:30 12/23/16 01:30 12/23/16 03:14 12/23/16 05:00 Range/Units Activated Partial Thromboplast Time 33 24-35 SEC Alanine Aminotransferase (ALT/SGPT) 2688 H 0-55 U/L Albumin 3.4 3.2-4.5 G/DL Alkaline Phosphatase 255 H 40-136 U/L Anion Gap 17 H 5-14 MMOL/L Aspartate Amino Transf (AST/SGOT) 4581 H 5-34 U/L B-Type Natriuretic Peptide 1363.5 H <100.0 PG/ML BUN/Creatinine Ratio 16 Basophils # (Auto) 0.0 0.0-0.1 10^3/uL Basophils (%) (Auto) 0 0-10 % Blood Urea Nitrogen 14 7-18 MG/DL Calcium Level 9.0 8.5-10.1 MG/DL Carbon Dioxide Level 17 L 21-32 MMOL/L Chloride Level 99 98-107 MMOL/L Creatinine 0.89 0.60-1.30 MG/DL Eosinophils # (Auto) 0.0 0.0-0.3 10^3/uL Eosinophils (%) (Auto) 0 0-10 % Estimat Glomerular Filtration Rate 60 Glucose Level 69 L 70-105 MG/DL Hematocrit 35 35-52 % Hemoglobin 12.3 11.5-16.0 G/DL INR Comment 2.2 H 0.8-1.4 Lipase 22 8-78 U/L Lymphocytes # (Auto) 0.9 L 1.0-4.0 X 10^3 Lymphocytes (%) (Auto) 5 L 12-44 % Magnesium Level 1.9 1.8-2.4 MG/DL Mean Corpuscular Hemoglobin 37 H 25-34 PG Mean Corpuscular Hemoglobin Concent 35 32-36 G/DL Mean Corpuscular Volume 107 H 80-99 FL Mean Platelet Volume 10.4 7.4-10.4 FL Monocytes # (Auto) 5.2 H 0.0-1.0 X 10^3 Monocytes (%) (Auto) 25 H 0-12 % Neutrophils # (Auto) 14.3 H 1.8-7.8 X 10^3 Neutrophils (%) (Auto) 70 42-75 % Platelet Count 219 130-400 10^3/uL Potassium Level 4.4 3.6-5.0 MMOL/L Prothrombin Time 24.4 H 12.2-14.7 SEC Red Blood Count 3.30 L 4.35-5.85 10^6/uL Red Cell Distribution Width 16.2 H 10.0-14.5 % Sodium Level 133 L 135-145 MMOL/L Total Bilirubin 3.0 H 0.1-1.0 MG/DL Total Protein 6.2 L 6.4-8.2 G/DL Troponin I < 0.30 <0.30 NG/ML White Blood Count 20.5 H 4.3-11.0 10^3/uL Lactic Acid Level 4.6 *H 4.2 *H 0.5-2.0 MMOL/L Urine Bacteria NEGATIVE /HPF Urine Bilirubin NEGATIVE NEGATIVE Urine Casts NONE /LPF Urine Clarity CLEAR Urine Color YELLOW Urine Crystals NONE /LPF Urine Culture Indicated NO Urine Glucose (UA) NEGATIVE NEGATIVE Urine Ketones NEGATIVE NEGATIVE Urine Leukocyte Esterase 1+ H NEGATIVE Urine Mucus NEGATIVE /LPF Urine Nitrite NEGATIVE NEGATIVE Urine Protein 3+ H NEGATIVE Urine RBC 5-10 H /HPF Urine RBC (Auto) 3+ H NEGATIVE Urine Specific [place] 1.010 L 1.016-1.022 Urine Squamous Epithelial Cells 10-25 H /HPF Urine Urobilinogen 1 NORMAL MG/DL Urine WBC RARE /HPF Urine pH 6.5 5-9 Test 12/23/16 05:40 Range/Units Anion Gap 13 5-14 MMOL/L BUN/Creatinine Ratio 16 Basophils # (Auto) 0.0 0.0-0.1 10^3/uL Basophils (%) (Auto) 0 0-10 % Blood Urea Nitrogen 14 7-18 MG/DL Calcium Level 8.6 8.5-10.1 MG/DL Carbon Dioxide Level 20 L 21-32 MMOL/L Chloride Level 101 98-107 MMOL/L Creatinine 0.85 0.60-1.30 MG/DL Eosinophils # (Auto) 0.0 0.0-0.3 10^3/uL Eosinophils (%) (Auto) 0 0-10 % Estimat Glomerular Filtration Rate > 60 Glucose Level 81 70-105 MG/DL Hematocrit 36 35-52 % Hemoglobin 12.3 11.5-16.0 G/DL Lymphocytes # (Auto) 1.0 1.0-4.0 X 10^3 Lymphocytes (%) (Auto) 5 L 12-44 % Magnesium Level 1.8 1.8-2.4 MG/DL Mean Corpuscular Hemoglobin 37 H 25-34 PG Mean Corpuscular Hemoglobin Concent 35 32-36 G/DL Mean Corpuscular Volume 106 H 80-99 FL Mean Platelet Volume 11.2 H 7.4-10.4 FL Monocytes # (Auto) 4.9 H 0.0-1.0 X 10^3 Monocytes (%) (Auto) 24 H 0-12 % Neutrophils # (Auto) 14.2 H 1.8-7.8 X 10^3 Neutrophils (%) (Auto) 71 42-75 % Phosphorus Level 2.8 2.3-4.7 MG/DL Platelet Count 223 130-400 10^3/uL Potassium Level 4.1 3.6-5.0 MMOL/L Red Blood Count 3.34 L 4.35-5.85 10^6/uL Red Cell Distribution Width 16.3 H 10.0-14.5 % Sodium Level 134 L 135-145 MMOL/L White Blood Count 20.1 H 4.3-11.0 10^3/uL Results Results/Procedures Lab Laboratory Tests 12/23/16 00:30 12/23/16 05:40 Assessment/Plan Admission Diagnosis 1. Subacute hepatitis considering that the INR is elevated is most likely. There is no evidence to suggest sepsis at this time she does however have findings to suggest bronchitis. If however her respiratory symptoms are significantly better by tomorrow with a dose of IV Lasix today is likely all heart failure related and I would discontinue her antibiotics. Macrobid is certainly a possibility. Anoxic hepatopathy is also a possibility. The patient does have a when necessary hydrocodone and Tylenol order acetaminophen is less likely. If this is the case it would not however be a sentence antiplatelet to do anything for in a frail 86-year-old. Regardless of any of the above etiologies her prognosis remains poor and will continue conservative medical management. 2. Elevated BNP with relatively normal BUN/creatinine ratio will DC IV fluids and give 1 dose of IV furosemide. I do not yet have her reconciled medicines this may need to be done first thing in the morning. 3. History of Parkinson's disease reported no current resting tremors noted. With multiple admissions overnight do not recall whether or not there was overt evidence for bradykinesia or cogwheeling. Clinical Quality Measures DVT/VTE Risk/Contraindication: Risk Factor Score Per Nursin RFS Level Per Nursing on Admit: 2=Moderate HAFSA JIN MD Dec 23, 2016 11:06
[2016-12-23] MEDS ORDERED: FUROSEMIDE 40 MG/4 ML INJ (LASIX) IVP NR (11:30)
[2016-12-23] MEDS ORDERED: VITAMIN K 1 MG/ML ORAL SOLN 1 ML SYRINGE PO NR (12:00)
[2016-12-23] MEDS: RT-ALBUTEROL/IPRATROPIUM 3 ML (DUONEB) VIAL INH SCH ×3 (13:34→22:20)
[2016-12-23] MEDS: CATHETER FLUSH 10 ML SYR IV SCH ×2 (14:00→22:05)
[2016-12-23] MEDS ORDERED: POLY17PO6 PO (15:51)
[2016-12-23] MEDS ORDERED: CHLO4TAB36 PO (15:51)
[2016-12-23] MEDS ORDERED: EXEM25TA4 PO (15:51)
[2016-12-23] MEDS ORDERED: PRAM0.5T2 PO (15:51)
[2016-12-23] MEDS ORDERED: ASPI-999 PO (15:51)
[2016-12-23] MEDS ORDERED: NF-HYD500C PO (15:51)
[2016-12-23] MEDS ORDERED: SENN-140 PO (15:51)
[2016-12-23] MEDS ORDERED: POTA10TA6 PO (15:51)
[2016-12-23] MEDS ORDERED: HYDR-756 PO (15:51)
[2016-12-23] MEDS ORDERED: LORA10CA PO (15:51)
[2016-12-23] MEDS ORDERED: ACET-77 PO (15:51)
[2016-12-24] VITALS (15 sets, daily range): BP systolic 96–146; BP diastolic 57–92
[2016-12-24] MEDS: PIPERACILLIN/TAZOBACTAM 4.5 GM/NS100 ML IVPB IV SCH ×6 (00:04→16:11)
[2016-12-24] MEDS: RT-ALBUTEROL/IPRATROPIUM 3 ML (DUONEB) VIAL INH SCH ×6 (02:40→22:52)
[2016-12-24 04:25] LABS: BASOPHILS # (AUTO) 0.1 10^3/uL (0.0-0.1); BASOPHILS % (AUTO) 0 % (0-10); EOSINOPHILS % (AUTO) 0 % (0-10); LYMPHOCYTES # (AUTO) 0.9 X 10^3 (1.0-4.0); LYMPHOCYTES % (AUTO) 5 % (12-44); MEAN CORPUSCULAR HEMOGLOBIN 36 PG (25-34); MEAN CORPUSCULAR HGB CONC 34 G/DL (32-36); MEAN CORPUSCULAR VOLUME 107 FL (80-99); MONOCYTES # (AUTO) 4.2 X 10^3 (0.0-1.0); MONOCYTES % (AUTO) 26 % (0-12); NEUTROPHILS % (AUTO) 68 % (42-75); PLATELET COUNT 259 10^3/uL (130-400); RED BLOOD COUNT 3.45 10^6/uL (4.35-5.85); RED CELL DISTRIBUTION WIDTH 16.5 % (10.0-14.5); WHITE BLOOD COUNT 16.1 10^3/uL (4.3-11.0)
[2016-12-24 04:45] LABS: ALBUMIN 2.9 G/DL (3.2-4.5); BILIRUBIN,TOTAL 2.7 MG/DL (0.1-1.0); CALCIUM 8.3 MG/DL (8.5-10.1); CREATININE SERUM 0.92 MG/DL (0.60-1.30); MAGNESIUM 1.6 MG/DL (1.8-2.4); PHOSPHORUS 2.3 MG/DL (2.3-4.7); POTASSIUM 3.1 MMOL/L (3.6-5.0); TOTAL PROTEIN 5.1 G/DL (6.4-8.2)
[2016-12-24] MEDS ORDERED: VANCOMYCIN 1 GM/NS 250 ML IVPB IV SCH ×2 (05:00)
[2016-12-24] MEDS: CATHETER FLUSH 10 ML SYR IV SCH (06:00)
[2016-12-24] MEDS ORDERED: KCL 20 MEQ TAB (K-DUR) PO SCH (07:45)
[2016-12-24] MEDS ORDERED: NS IV 500 ML 500 ML ONE (08:01)
[2016-12-24] MEDS: MAGNESIUM 1 GM/100 ML IVPB 100 ML IV SCH ×2 (08:13→09:21)
[2016-12-24] MEDS: POTASSIUM CL 10MEQ/50ML IVPB 50 ML IV SCH ×4 (08:13→11:43)
[2016-12-24] MEDS ORDERED: FLUT16SP22 NS (09:28)
[2016-12-24] MEDS ORDERED: PARO20TA5 PO (09:28)
[2016-12-24] MEDS ORDERED: FAMO-119 PO (09:28)
[2016-12-24] MEDS ORDERED: NITR100C10 PO (09:28)
[2016-12-24] MEDS ORDERED: METO50TA2 PO (09:28)
[2016-12-24] MEDS ORDERED: [UNRECOGNIZED DRUG - CODE] TP (09:28)
[2016-12-24] MEDS ORDERED: ACET325T49 PO (09:28)
[2016-12-24] MEDS ORDERED: MAGN400O7 PO (09:28)
[2016-12-24] MEDS ORDERED: LEVO125T6 PO (09:28)
[2016-12-24] MEDS ORDERED: LORA10TA7 PO (09:28)
[2016-12-24] MEDS ORDERED: GUAI5SYR PO (09:28)
--- NOTE | 2016-12-24 09:32 | Diagnostic Imaging Report ---
INDICATION: Shortness of breath. COMPARISON: 12/23/2016. FINDINGS: The lungs are clear. The heart size is at the upper limits of normal but no vascular congestion, effusion, or pneumothorax. IMPRESSION: No acute appearing abnormality. Dictated by: Dictated on workstation # [id number]
[2016-12-24] MEDS ORDERED: ALBU2.5V4 IH (09:34)
--- NOTE | 2016-12-24 12:00 | Progress Note-Hospitalist ---
Standard Progress Note Progress Notes/Assess & Plan Date Seen 12/24/16 Diagnosis 1. Subacute hepatitis considering that the INR is elevated is most likely. There is no evidence to suggest sepsis at this time she does however have findings to suggest bronchitis. If however her respiratory symptoms are significantly better by tomorrow with a dose of IV Lasix today is likely all heart failure related and I would discontinue her antibiotics. Macrobid is certainly a possibility. Anoxic hepatopathy is also a possibility. The patient does have a when necessary hydrocodone and Tylenol order acetaminophen is less likely. If this is the case it would not however be a sentence antiplatelet to do anything for in a frail 86-year-old. Regardless of any of the above etiologies her prognosis remains poor and will continue conservative medical management. 2. Elevated BNP with relatively normal BUN/creatinine ratio will DC IV fluids and give 1 dose of IV furosemide. I do not yet have her reconciled medicines this may need to be done first thing in the morning. 3. History of Parkinson's disease reported no current resting tremors noted. With multiple admissions overnight do not recall whether or not there was overt evidence for bradykinesia or cogwheeling. Assess & Plan/Chief Complaint The patient's a demented 86-year-old white female. She was admitted with the presumption of pneumonia and sepsis. The patient has been afebrile throughout. Her white count was initially in the 20,000 range and has now fallen to 16, 000. She provided me with no useful history today. She was previously a DO NOT RESUSCITATE and therefore ICU occupants he is not appropriate. She will be transferred to the floor. At admission her bilirubin was 3, AST 4581, ALT 2688 , alkaline phosphatase 255. Today's values show considerable improvement with bilirubin 2.7, AST 1499, ALT 1590, and alkaline phosphatase 205. Her BNP was 1363. Physical exam: She appears quite elderly. She is pleasant but confused. Lungs show breath sounds to be distant but clear. CV was somewhat irregular. Abdomen was soft to palpation. The extremities show no evidence of edema. There is a medial shallow clean ulceration on the left distal tibia at about the height of a crew sock. Impression: Severe dementia. 2.hepatitis improving, suspicious as medication related. 3.evidence for mild to moderate congestive heart failure. Labs Laboratory Tests 12/23/16 00:30 12/23/16 05:40 12/24/16 04:00 12/24/16 04:10 CHRIS MASTERS MD Dec 24, 2016 12:00
--- NOTE | 2016-12-24 13:48 | ST Dysphagia Evaluation ---
Speech Evaluation-General Medical Diagnosis Subacute Hepatitis Onset Date: Dec 23, 2016 Therapy Diagnosis Therapy Diagnosis: Mild Oral Dysphagia Precautions Precautions: Aspiration Precautions/Isolations: Fall Prevention, Standard Precautions, Pressure Ulcer Referral Referring Physician: Dr. Seth Valenzuela Reason for Referral: Evaluation/Treatment Clinical Bedside Swallowing Evaluation Medical History Pertinent Medical History: Dementia, GERD, HTN, Hypothroidism, Parkinson's Reviewed History: Yes Speech PLF/Current-Dysphagia Prior Level of Function The patient was unable to provide the clinician with her prior level of function. Per RN, the patient's daughter reported the absence of signs/symptoms of aspiration with PO intake. Subjective The patient was recently admitted to [facility] with a diagnosis of subacute hepatitis. The patient was sleeping upon entrance, however, was easily roused with gentle verbal prompts. The patient was agreeable to the dysphagia evaluation. Prior to bolus trials, the patient's SpO2% was 91% with supplemental oxygen via nasal cannula (2L). CXR: 12/23/16: Bibasilar atelectasis versus early infiltrate. Cognitive Status Patient Orientation: Person Oral Motor Skills Dentition: Incisors (Lower dentition present.), Edentalous Denture Type: Full- Upper Current Food Consistancy: Clear Liquids Ability to Follow Directions: Fair Oral Expression Ability: Moderate Impairment Voice Voice Phonatory-Based Quality: Glottal Morelos Voice Pitch: Normal Voice Loudness: Moderately Soft/Quiet Face Facial Symmetry: Symmetrical Oral-Facial Assessment Oral-Facial Dentition: Normal Labial Seal Description: Weak (Mildly, bilaterally.) Smile: Normal Puff Cheeks: Reduced Strength (Mildly, bilaterally.) Lingual Protrusion: Normal Lingual ROM: Normal Lingual Strength: Normal Pharynx Velopharyngeal Move.: Normal Dysphagia Evaluation Consistencies Presented: Regular, Thin Liquid (Via cup and straw sip.), Pureed Oral Phase: Oral Residue - The patient demonstrated oral residue with solid and puree consistencies. The oral residue (mild) was cleared with a subsequent bolus of thin liquid. Mildly increased mastication time was noted with solid consistencies tested. - No pharyngeal impairments were noted throughout the evaluation. - No signs/symptoms of aspiration were noted with thin liquid, puree, or solid consistencies during the evaluation. The patient's SpO2% remained stable at 91% (intermittently increasing to 94%). Dietary Recommendations: Regular Liquid Recommendations: Thin Swallowing Precautions: Alternate Liquids/Solids, Pocketing (Assess for pocketing or oral holding throughout and following meals.), Small Bites and Sips , Sitting 90 Degrees 30 Post Intake Dysphagia Evaluation Summary Mild oral dysphagia characterized by increased mastication time with solids. Barriers to Learning Cognition Speech-Plan Treatment Plan Speech Therapy Treatment Plan: Discontinue ST Eval, only. Rehab Potential: Fair Safety Risks/Education Teaching Recipient: Patient Teaching Methods: Discussion Response to Teaching: Unable to Comprehend, Reinforcement Needed Education Topics Provided: Swallowing strategies, Recommendations, Results Time Speech Therapy Time In: 11:00 Speech Therapy Time Out: 11:20 Total Billed Time: 20 Billed Treatment Time 1, ANDREA MONREAL Dec 24, 2016 13:48
[2016-12-25] MEDS: PIPERACILLIN/TAZOBACTAM 4.5 GM/NS100 ML IVPB IV SCH ×6 (00:05→17:10)
[2016-12-25] MEDS: RT-ALBUTEROL/IPRATROPIUM 3 ML (DUONEB) VIAL INH SCH ×6 (02:17→22:08)
[2016-12-25 04:00] VITALS: BP 129/82
[2016-12-25] MEDS ORDERED: TROUGH ORDER-PHARMACY XX NR (04:00)
[2016-12-25 05:18] LABS: BASOPHILS # (AUTO) 0.1 10^3/uL (0.0-0.1); BASOPHILS % (AUTO) 1 % (0-10); EOSINOPHILS # (AUTO) 0.1 10^3/uL (0.0-0.3); EOSINOPHILS % (AUTO) 1 % (0-10); LYMPHOCYTES # (AUTO) 0.8 X 10^3 (1.0-4.0); LYMPHOCYTES % (AUTO) 7 % (12-44); MEAN CORPUSCULAR HEMOGLOBIN 36 PG (25-34); MEAN CORPUSCULAR HGB CONC 34 G/DL (32-36); MEAN CORPUSCULAR VOLUME 106 FL (80-99); MEAN PLATELET VOLUME 10.1 FL (7.4-10.4); MONOCYTES # (AUTO) 3.3 X 10^3 (0.0-1.0); MONOCYTES % (AUTO) 26 % (0-12); NEUTROPHILS # (AUTO) 8.3 X 10^3 (1.8-7.8); NEUTROPHILS % (AUTO) 66 % (42-75); PLATELET COUNT 221 10^3/uL (130-400); RED BLOOD COUNT 3.29 10^6/uL (4.35-5.85); RED CELL DISTRIBUTION WIDTH 16.8 % (10.0-14.5); WHITE BLOOD COUNT 12.6 10^3/uL (4.3-11.0)
[2016-12-25 08:00] VITALS: BP 172/89
[2016-12-25] MEDS: MUPIROCIN 2% OINT 22 GM (BACTROBAN) TUBE TOP SCH ×2 (09:54→20:57)
[2016-12-25] MEDS ORDERED: HYDROcodone/APAP 7.5 MG/325 MG (LORTAB, LORCET PLUS) TABLET PO PRN (10:15)
[2016-12-25] MEDS ORDERED: MILK OF MAGNESIA 400 MG/5 ML 30 ML UDC PO PRN (10:15)
[2016-12-25] MEDS ORDERED: ACETAMINOPHEN 325 MG TABLET/CAPLET (TYLENOL) PO PRN (10:15)
[2016-12-25] MEDS ORDERED: FAMOTIDINE 20 MG (PEPCID) TABLET PO PRN (10:15)
[2016-12-25 12:00] VITALS: BP 131/71
--- NOTE | 2016-12-25 12:14 | Progress Note-Hospitalist ---
Standard Progress Note Progress Notes/Assess & Plan Date Seen 12/25/16 Diagnosis 1. Subacute hepatitis considering that the INR is elevated is most likely. There is no evidence to suggest sepsis at this time she does however have findings to suggest bronchitis. If however her respiratory symptoms are significantly better by tomorrow with a dose of IV Lasix today is likely all heart failure related and I would discontinue her antibiotics. Macrobid is certainly a possibility. Anoxic hepatopathy is also a possibility. The patient does have a when necessary hydrocodone and Tylenol order acetaminophen is less likely. If this is the case it would not however be a sentence antiplatelet to do anything for in a frail 86-year-old. Regardless of any of the above etiologies her prognosis remains poor and will continue conservative medical management. 2. Elevated BNP with relatively normal BUN/creatinine ratio will DC IV fluids and give 1 dose of IV furosemide. I do not yet have her reconciled medicines this may need to be done first thing in the morning. 3. History of Parkinson's disease reported no current resting tremors noted. With multiple admissions overnight do not recall whether or not there was overt evidence for bradykinesia or cogwheeling. Assess & Plan/Chief Complaint The patient appears to be brighter today than yesterday. She remains confused. Her daughter is in the room. She has no real complaint. Physical exam: She is quite pleasant but does not definitively answer any questions other than stating that she feels better. A cough with slight rattle is noted. Lungs show distant breath sounds without wheezing or rhonchi. CV is regular. Impression: Hepatitis, resolving. Suspect that Macrodantin played a part in this. 2.senile dementia of Alzheimer's type Plan: Repeat liver panel in the a.m. If continued improvement she becomes a candidate for discharge. Labs Laboratory Tests 12/24/16 04:00 12/24/16 04:10 12/25/16 05:10 CHRIS MASTERS MD Dec 25, 2016 12:14
[2016-12-25 16:00] VITALS: BP 133/69
[2016-12-25] MEDS: PRAMIPEXOLE 0.5 MG TAB (MIRAPEX) PO SCH (17:10)
[2016-12-25 20:00] VITALS: BP 120/69
[2016-12-26] VITALS: BP 118/75
[2016-12-26] MEDS: PIPERACILLIN/TAZOBACTAM 4.5 GM/NS100 ML IVPB IV SCH ×6 (00:47→17:49)
[2016-12-26] MEDS: RT-ALBUTEROL/IPRATROPIUM 3 ML (DUONEB) VIAL INH SCH ×6 (02:33→22:14)
[2016-12-26 04:00] VITALS: BP 161/75
[2016-12-26 06:04] LABS: BASOPHILS # (AUTO) 0.1 10^3/uL (0.0-0.1); BASOPHILS % (AUTO) 0 % (0-10); EOSINOPHILS # (AUTO) 0.3 10^3/uL (0.0-0.3); EOSINOPHILS % (AUTO) 2 % (0-10); LYMPHOCYTES # (AUTO) 0.7 X 10^3 (1.0-4.0); LYMPHOCYTES % (AUTO) 6 % (12-44); MEAN CORPUSCULAR HEMOGLOBIN 36 PG (25-34); MEAN CORPUSCULAR HGB CONC 33 G/DL (32-36); MEAN CORPUSCULAR VOLUME 108 FL (80-99); MEAN PLATELET VOLUME 10.7 FL (7.4-10.4); MONOCYTES # (AUTO) 2.7 X 10^3 (0.0-1.0); MONOCYTES % (AUTO) 24 % (0-12); NEUTROPHILS # (AUTO) 7.6 X 10^3 (1.8-7.8); NEUTROPHILS % (AUTO) 67 % (42-75); PLATELET COUNT 191 10^3/uL (130-400); RED BLOOD COUNT 3.07 10^6/uL (4.35-5.85); RED CELL DISTRIBUTION WIDTH 17.1 % (10.0-14.5); WHITE BLOOD COUNT 11.4 10^3/uL (4.3-11.0)
[2016-12-26 06:24] LABS: ALANINE AMINOTRANSFERASE 870 U/L (0-55); ALBUMIN 2.7 G/DL (3.2-4.5); ANION GAP 9 MMOL/L (5-14); ASPARTATE AMINO TRANSFERASE 308 U/L (5-34); BILIRUBIN,TOTAL 2.1 MG/DL (0.1-1.0); BLOOD UREA NITROGEN 7 MG/DL (7-18); BUN/CREATININE RATIO 9; CALCIUM 7.9 MG/DL (8.5-10.1); CARBON DIOXIDE 24 MMOL/L (21-32); CHLORIDE 106 MMOL/L (98-107); CREATININE SERUM 0.75 MG/DL (0.60-1.30); GFR ESTIMATED > 60; GLUCOSE 118 MG/DL (70-105); POTASSIUM 3.3 MMOL/L (3.6-5.0); SODIUM 139 MMOL/L (135-145); TOTAL PROTEIN 4.9 G/DL (6.4-8.2)
[2016-12-26 08:00] VITALS: BP 133/71
[2016-12-26] MEDS: ASPIRIN 81 MG CHEW (CHILDREN'S ASA) PO SCH (09:52)
[2016-12-26] MEDS: POLYETHYLENE GLYCOL 17 GM (MIRALAX) PACK PO SCH (09:54)
[2016-12-26] MEDS: PARoxetine 20 MG (PAXIL) TAB PO SCH (09:54)
[2016-12-26] MEDS: HYDROXYUREA 500 MG CAP (HYDREA) PO SCH (09:54)
[2016-12-26] MEDS: meTOprolol TARTRATE 50 MG (LOPRESSOR) TAB PO SCH (09:54)
[2016-12-26] MEDS: KCL 10 MEQ TAB (MICRO K) PO SCH (09:54)
[2016-12-26] MEDS: LEVOTHYROXINE 125 MCG (LEVOTHROID) TABLET PO SCH (09:54)
[2016-12-26] MEDS: MUPIROCIN 2% OINT 22 GM (BACTROBAN) TUBE TOP SCH ×2 (09:57→21:38)
--- NOTE | 2016-12-26 10:19 | Progress Note-Hospitalist ---
Progress Note HPI/CC on Admission I was contacted initially by retirement staff about Mrs. Johnson the afternoon of the with reports that she had a croupy cough and was finishing a round of Macrobid. They're concerned about her cough and her oxygen level had been in the low 90s. I advised that discontinue Macrobid give her Ceftin a breathing treatment with albuterol and continue every 4 hours when necessary. She is 86 quite frail with DO NOT RESUSCITATE status. I highly doubt there were able to give her any antibiotic. I wasn't told of any nausea or abdominal pain did not hear anything back until I was contacted by the emergency room physician after her emergency room workup including CT scan of chest pelvis which did not reveal any evidence for infectious sites. Most notable laboratory evaluation was profound hepatitis with leukocytosis with neutrophilia and a lactate level little over 4 and an INR of 2.2 in individual who does not have any documented anticoagulant usage. She was subsequently admitted for further investigation of her hepatitis. She is confused and unable to provide any history. She apparently has a history of Parkinson's disease is usually pleasant but has cognitive impairment. She is a patient of Dr. Cheek's. Progress Notes/Assess & Plan Date Seen 12/26/16 Diagonsis/Assessment & Plan Chart Review: No fever Vitals stable WBC to 11.4 Hgb 11 AST/ALT 308/870 from 1499/1590 It appears that Macrobid caused acute hepatitis Patient Interview: Dr. Deleon informs pt that liver is much improved today, and DC will soon be possible. Pt's family states that pt lives at [facility]. Pt does not normally use O2 at [facility], and pt does not receive breathing treatments. Pt does not normally have a catheter at the [facility]. Physical exam stable, lungs sound improved. Pt family states that pts voice is much weaker, and family is concerned about this. Dr. Cheek is PCP. No fever, vital stable, pleasant, oriented times around 1-2 but poor recall and very hard of hearing Regular rate and rhythm, decreased breath sounds in the bases but no rales are noted No edema Assessment: Sepsis with previous UTI placed on Macrobid then had acute hepatitis of transaminases in the thousands Severe dementia Overall debility just finished physical therapy at retirement Baca catheter maintenance we'll discontinue Recurrent UTIs Severe COPD Plan: Check labs tomorrow DC baca cath PT Continue antibiotics until tomorrow will discharge to the retirement on skilled Home O2 eval Scribed by Justino Porter under the direct supervision of Dr. Deleon. CARLIE DELEON DO Dec 26, 2016 10:19
--- NOTE | 2016-12-26 11:42 | Physical Therapy Evaluation ---
PT Evaluation-General Medical Diagnosis Admission Date Dec 23, 2016 at 04:10 Medical Diagnosis: Subacute Hepatitis Onset Date: Dec 23, 2016 Therapy Diagnosis Therapy Diagnosis: general debility/weakness Height/Weight Height (Feet): 5 Height (Inches): 5.00 Weight (Pounds): 165 Weight (Ounces): 1.0 Precautions Precautions/Isolations: Fall Prevention, Standard Precautions Referral Physician: Camryn Reason for Referral: Evaluation/Treatment Medical History Pertinent Medical History: Dementia, GERD, HTN, Hypothroidism, Parkinson's Additional Medical History sepsis/hepatitis Current History NH called with concern of a cough and recent pneumonia Reviewed History: Yes Social History Home: Jail Prior/Core FIM Prior Level of Function Functional [place] Measure 0=Not Assessed/NA 4=Minimal Assistance 1=Total Assistance 5=Supervision or Setup 2=Maximal Assistance 6=Modified [place] 3=Moderate Assistance 7=Complete [place] Bed Mobility: 3 Transfers (B,C,W/C) (FIM): 3 Gait: 1 per family, patient ambulate only short distances and requires w/c PT Evaluation-Current Subjective Patient reluctantly agrees to PT. Pain Numeric Pain Scale: 0-No Pain Location: No Pain Reported Objective Patient Orientation: Confused Problem Solving: Poor Attachments: Oxygen, Cope Catheter, IV ROM/Strength ROM Lower Extremities bilateral LE WFL Strenght Lower Extremities bilateral LE 4-/5 grossly Integumentary/Posture Integumentary refer to nursing notes Bowel Incontinence: No Bladder Incontinence: Cope Cath Posture WNL Neuromuscular (Tone, Coordination, Reflexes) diminished due to inactivity Sensory Vision: Wears Glasses Hearing: Impaired Sensation Right Lower Extremit: Impaired Sensation Left Lower Extremity: Impaired Transfers Functional [place] Measure 0=Not Assessed/NA 4=Minimal Assistance 1=Total Assistance 5=Supervision or Setup 2=Maximal Assistance 6=Modified [place] 3=Moderate Assistance 7=Complete [place] Transfers (B, C, W/C) (FIM): 3 Scootin Rollin Supine to/from Sit: 3 Sit to/from Stand: 3 Gait Mode of Locomotion: Walk Anticipated Mode of Locomotion: Both Gait (FIM): 1 Distance (FIM): 1=up to 49 ft Distance: 20' Gait Level of Assist: 4 Gait Persons Needed: 1 Gait Assistive Device: FWW Comments/Gait Description functional gait sequence Balance Sitting Static: Fair Sitting Dynamic: Fair Standing Static: Fair Standing Dynamic: Fair Assessment/Needs 86 y.o. inactive female, will benefit from short term skilled PT to address functional strength and mobility to improve current LOF and to safely return to NH at maximum LOF. Rehab Potential: Fair Post Rehab Potential-Barriers: inactivity PT Long-Term Goals Long-Term Goals PT Surveying Crew Rodman Goals Time Frame: Jan 02, 2017 Transfers (B,C,W/C) (FIM): 4 Gait (FIM): 1 Gait distance (FIM): 1=up to 49 ft Distance: 45' Gait Level of Assist: 4 Gait Assistive Device: FWW PT Plan Problem List Problem List: Activity Tolerance, Functional Strength, Safety, Balance, Gait, Transfer, Bed Mobility Treatment/Plan Treatment Plan: Continue Plan of Care Treatment Plan: Bed Mobility, Education, Functional Activity Evita, Functional Strength, Gait, Safety, Therapeutic Exercise, Transfers Treatment Duration: Jan 02, 2017 # of days/week 5-6 Visits Per Week: 5-6 Pt/Family Agrees w/Plan: Yes Safety Risks/Education Patient Education: Safety Issues Teaching Recipient: Patient Teaching Methods: Discussion Response to Teaching: Reinforcement Needed Discharge Recommendations Therapy D/C Recommendations: Intermediate (TCU/NH) Time/GCodes Time In: 1101 Time Out: 1111 Total Billed Treatment Time: 10 Total Billed Treatment 1 visit EVLowC 10 min G Codes Necessary: FERN Mcgarry PT Dec 26, 2016 11:42
--- NOTE | 2016-12-26 11:53 | Occupational Therapy Eval ---
OT Evaluation-General/PLF Medical Diagnosis Admission Date Dec 23, 2016 at 04:10 Medical Diagnosis: Subacute Hepatitis Onset Date: Dec 23, 2016 Therapy Diagnosis Therapy Diagnosis: decreased self care skills Height/Weight Height (Feet): 5 Height (Inches): 5.00 Weight (Pounds): 165 Weight (Ounces): 1.0 Precautions Precautions/Isolations: Fall Prevention, Standard Precautions Safety Interventions: Bed Exit Alarm Referral Physician: Camryn Medical History Pertinent Medical History: Dementia, GERD, HTN, Hypothroidism, Parkinson's Reviewed History: Yes Social History Home: Group Home ADL-Prior Level of Function ADL PLOF Comments Pt has been at [facility] per chart. Pt unable to provide meaningful history. Per PT note, pt was using w/c and ambulating only short distances. OT Current Status Subjective Pt sitting in chair after working with PT. Pt agrees to OT, but states "I feel lazy" Mental Status/Objective Attachments: Cope Catheter, IV, Oxygen Current Glasses/Contacts: Yes Dentures/Partials: Yes Hand Dominance: Right Upper Extremity ROM Grossly functional Upper Extremity Coordination Fair Upper Extremity Strength Fair ADL-Treatment ADL-Current Pt participated in UE assessment while seated in chair. Grooming tasks completed while seated. Pt washed face with set up and increased time. Pt combed hair using right UE, but required minimal assistance to complete task. Pt 's meal tray arrived during session and was set up for pt. Pt states she doesn' t feel that hungry right now. Pt was sitting in chair with needs met and [id number] present after session. Functional [place] Measure 0=Not Assessed/NA 4=Minimal Assistance 1=Total Assistance 5=Supervision or Setup 2=Maximal Assistance 6=Modified [place] 3=Moderate Assistance 7=Complete IndependenceIRFPAI Quality Coding Scale 6 Independent with activity with or without an assistive device 5 Patient requires set up or clean up by helper. Patient completes activity by themselves 4 Supervision or touching assist (CGA). [place] provide cues , steadying assist 3 The helper provides less than half the effort to complete the activity 2 The helper provides more than half the effort to complete the activity 1 Dependent. The helper does all the effort to complete an activity 7 Patient refused to complete or attempt activity 9 The patient did not perform the activity before the current illness or injury 86 Not attempted due to Medical conditions or safety concerns Grooming (FIM): 4 Education OT Patient Education: Rehab process Teaching Recipient: Patient Teaching Methods: Discussion Response to Teaching: Reinforcement Needed OT Short Term Goals Short Term Goals 1=Demonstrate adherence to instructed precautions during ADL tasks. 2=Patient will verbalize/demonstrate understanding of assistive devices/ modifications for ADL. 3=Patient will improve strength/tolerance for activity to enable patient to perform ADL's. OT Senior Radiation Therapist Goals Senior Radiation Therapist Goals Time Frame: Jan 02, 2017 Eating (FIM): 5 Grooming(FIM): 5 Upper Body Dressing(FIM): 4 Toilet/Commode Transfer(FIM): 4 Additional Goals: 1-Demonstrate ADL Tasks, 2-Verbalize Understanding, 3- ImproveStrength/Evita 1=Demonstrate adherence to instructed precautions during ADL tasks. 2=Patient will verbalize/demonstrate understanding of assistive devices/ modifications for ADL. 3=Patient will improve strength/tolerance for activity to enable patient to perform ADL's. OT Education/Plan Problem List/Assessment Assessment: Decreased Activ Tolerance, Decreased UE Strength, Dependent Transfers, Impaired Self-Care Skills Pt to benefit from skilled OT intervention for ADL training, transfers, and strengthening to maximize level of function and allow safe discharge. Discharge Recommendations Plan/Recommendations: Continue POC Treatment Plan/Plan of Care Treatment,Training & Education: Yes Patient would benefit from OT for education, treatment and training to promote independence in ADL's, mobility, safety and/or upper extremity function for ADL' s. Plan of Care: ADL Retraining, Functional Mobility, UE Funct Exercise/Act Treatment Duration: Jan 02, 2017 # of days/week 5 Visits Per Week: 5 Agreement: Yes Rehab Potential: Fair Time/GCodes Start Time: 11:15 Stop Time: 11:32 Total Time Billed (hr/min): 17 Billed Treatment Time 1 visit, TEMO(17minutes) LEIA GALINDO OT Dec 26, 2016 11:53
[2016-12-26 12:00] VITALS: BP 126/72
[2016-12-26 16:00] VITALS: BP 128/65
[2016-12-26] MEDS: PRAMIPEXOLE 0.5 MG TAB (MIRAPEX) PO SCH (17:49)
[2016-12-26 20:00] VITALS: BP 160/80
[2016-12-27] VITALS: BP 174/85
[2016-12-27] MEDS: PIPERACILLIN/TAZOBACTAM 4.5 GM/NS100 ML IVPB IV SCH ×4 (01:01→08:31)
[2016-12-27] MEDS: RT-ALBUTEROL/IPRATROPIUM 3 ML (DUONEB) VIAL INH SCH ×3 (03:22→09:56)
[2016-12-27 04:00] VITALS: BP 120/62
[2016-12-27 06:57] LABS: BASOPHILS % (AUTO) 0 % (0-10); EOSINOPHILS # (AUTO) 0.3 10^3/uL (0.0-0.3); EOSINOPHILS % (AUTO) 3 % (0-10); LYMPHOCYTES % (AUTO) 9 % (12-44); MEAN CORPUSCULAR HEMOGLOBIN 36 PG (25-34); MEAN CORPUSCULAR HGB CONC 33 G/DL (32-36); MEAN CORPUSCULAR VOLUME 108 FL (80-99); MEAN PLATELET VOLUME 10.7 FL (7.4-10.4); MONOCYTES # (AUTO) 1.9 X 10^3 (0.0-1.0); MONOCYTES % (AUTO) 17 % (0-12); NEUTROPHILS # (AUTO) 7.7 X 10^3 (1.8-7.8); NEUTROPHILS % (AUTO) 71 % (42-75); PLATELET COUNT 156 10^3/uL (130-400); RED BLOOD COUNT 2.97 10^6/uL (4.35-5.85); RED CELL DISTRIBUTION WIDTH 17.4 % (10.0-14.5); WHITE BLOOD COUNT 10.9 10^3/uL (4.3-11.0)
[2016-12-27 08:00] VITALS: BP 127/64
[2016-12-27] MEDS: ASPIRIN 81 MG CHEW (CHILDREN'S ASA) PO SCH (08:31)
[2016-12-27] MEDS: meTOprolol TARTRATE 50 MG (LOPRESSOR) TAB PO SCH (08:31)
[2016-12-27] MEDS: KCL 10 MEQ TAB (MICRO K) PO SCH (08:31)
[2016-12-27] MEDS: PARoxetine 20 MG (PAXIL) TAB PO SCH (08:32)
[2016-12-27] MEDS: POLYETHYLENE GLYCOL 17 GM (MIRALAX) PACK PO SCH (08:32)
[2016-12-27] MEDS: MUPIROCIN 2% OINT 22 GM (BACTROBAN) TUBE TOP SCH (08:32)
[2016-12-27] MEDS: HYDROXYUREA 500 MG CAP (HYDREA) PO SCH (08:43)
[2016-12-27 09:46] LABS: ALANINE AMINOTRANSFERASE 643 U/L (0-55); ALBUMIN 2.4 G/DL (3.2-4.5); ANION GAP 8 MMOL/L (5-14); ASPARTATE AMINO TRANSFERASE 164 U/L (5-34); BILIRUBIN,TOTAL 1.7 MG/DL (0.1-1.0); BLOOD UREA NITROGEN 7 MG/DL (7-18); BUN/CREATININE RATIO 10; CALCIUM 7.7 MG/DL (8.5-10.1); CARBON DIOXIDE 24 MMOL/L (21-32); CHLORIDE 105 MMOL/L (98-107); CREATININE SERUM 0.68 MG/DL (0.60-1.30); GFR ESTIMATED > 60; GLUCOSE 115 MG/DL (70-105); POTASSIUM 3.6 MMOL/L (3.6-5.0); SODIUM 137 MMOL/L (135-145); TOTAL PROTEIN 4.7 G/DL (6.4-8.2)
--- NOTE | 2016-12-27 10:01 | Physical Therapy Daily Note ---
PT Daily Note-Current Subjective Patient is in bed and agrees to therapy. Pain Numeric Pain Scale: 0-No Pain Location: No Pain Reported Mental Status Patient Orientation: Confused Attachments: Oxygen, IV Transfers Functional [place] Measure 0=Not Assessed/NA 4=Minimal Assistance 1=Total Assistance 5=Supervision or Setup 2=Maximal Assistance 6=Modified [place] 3=Moderate Assistance 7=Complete IndependenceIRFPAI Quality Coding Scale 6 Independent with activity with or without an assistive device 5 Patient requires set up or clean up by helper. Patient completes activity by themselves 4 Supervision or touching assist (CGA). [place] provide cues , steadying assist 3 The helper provides less than half the effort to complete the activity 2 The helper provides more than half the effort to complete the activity 1 Dependent. The helper does all the effort to complete an activity 7 Patient refused to complete or attempt activity 9 The patient did not perform the activity before the current illness or injury 86 Not attempted due to Medical conditions or safety concerns Transfers (B, C, W/C) (FIM): 2 Scootin Rollin Supine to/from Sit: 2 Sit to/from Stand: 3 Bed to/from Chair: 3 Patient is very delayed with response time. Patient required continuous skilled verbal instruction to remain on task. sit to stand transfers x 3 sets mod assist Gait Training Gait (FIM): 1 Distance (FIM): 1=up to 49 ft (5' x 2) Gait Level of Assist: 3 Gait Persons Needed: 1 Gait Assistive Device: FWW Assessment Patient required much time to process and complete all functional tasks. Patient to dismiss to [place] on this date per Dr. Cowan. PT Long-Term Goals Long-Term Goals PT Certified Surgical First Assistant Goals Time Frame: Jan 02, 2017 Transfers (B,C,W/C) (FIM): 4 Gait (FIM): 1 Gait distance (FIM): 1=up to 49 ft Distance: 45' Gait Level of Assist: 4 Gait Assistive Device: FWW PT Plan Treatment/Plan Treatment Plan: Continue Plan of Care (PT will continue until dismissal) Treatment Plan: Bed Mobility, Education, Functional Activity Evita, Functional Strength, Gait, Safety, Therapeutic Exercise, Transfers Treatment Duration: Jan 02, 2017 Visits Per Week: 5-6 Time/GCodes Time In: 910 Time Out: 933 Total Billed Treatment Time: 23 Total Billed Treatment 1 visit FA x 2 23 min G Codes Necessary: No DAMEON,FERN PT Dec 27, 2016 10:01
[2016-12-27] MEDS ORDERED: IPRA3AMP INH (10:10)
[2016-12-27] MEDS ORDERED: AMOX-355 PO (10:10)
[2016-12-27] MEDS ORDERED: GUAI5SYR PO (10:10)
[2016-12-27] MEDS ORDERED: HYDR-756 PO (10:10)
--- NOTE | 2016-12-27 10:13 | Discharge Inst-Skilled Nursing ---
Discharge Inst-Skilled NF Chief Complaint I was contacted initially by correction staff about Mrs. Johnson the afternoon of the with reports that she had a croupy cough and was finishing a round of Macrobid. They're concerned about her cough and her oxygen level had been in the low 90s. I advised that discontinue Macrobid give her Ceftin a breathing treatment with albuterol and continue every 4 hours when necessary. She is 86 quite frail with DO NOT RESUSCITATE status. I highly doubt there were able to give her any antibiotic. I wasn't told of any nausea or abdominal pain did not hear anything back until I was contacted by the emergency room physician after her emergency room workup including CT scan of chest pelvis which did not reveal any evidence for infectious sites. Most notable laboratory evaluation was profound hepatitis with leukocytosis with neutrophilia and a lactate level little over 4 and an INR of 2.2 in individual who does not have any documented anticoagulant usage. She was subsequently admitted for further investigation of her hepatitis. She is confused and unable to provide any history. She apparently has a history of Parkinson's disease is usually pleasant but has cognitive impairment. She is a patient of Dr. Cheek's. Patient Instructions Patient Problems: sepsis due to UTI Elevated liver enzymes likely due to Macrobid side effect Severe dementia COPD requiring oxygen at home Consult/Follow Up/Orders Follow Up Appt.: Dr. Cheek in one week Skilled NF Admit to: Via [facility] [place] Certification ([facility]) I certify that SNF services are required to be given on an inpatient basis because of the above named patient's need for group home care on a continuing basis for the conditions(s) for which he/she was receiving inpatient hospital services prior to his/her transfer to the SNF. Retirement Facility Order: Nursing Services, Service Desk Director-Evaluate & Treat, Physical Therapy-Evaluate & Treat Discharge Diet: No Restrictions Daily Activity as Tolerated: Yes New & Resume Previous Orders Nicole Cowan Dec 27, 2016 10:12 Pneu Vac Indicated: Yes NICOLE COWAN DO Dec 27, 2016 10:13
--- NOTE | 2016-12-27 10:14 | Discharge Summary-Hospitalist ---
Diagnosis/Chief Complaint Date of Admission Dec 23, 2016 at 04:10 Date of Discharge Discharge Date: Dec 27, 2016 Admission Diagnosis 1. Subacute hepatitis considering that the INR is elevated is most likely. There is no evidence to suggest sepsis at this time she does however have findings to suggest bronchitis. If however her respiratory symptoms are significantly better by tomorrow with a dose of IV Lasix today is likely all heart failure related and I would discontinue her antibiotics. Macrobid is certainly a possibility. Anoxic hepatopathy is also a possibility. The patient does have a when necessary hydrocodone and Tylenol order acetaminophen is less likely. If this is the case it would not however be a sentence antiplatelet to do anything for in a frail 86-year-old. Regardless of any of the above etiologies her prognosis remains poor and will continue conservative medical management. 2. Elevated BNP with relatively normal BUN/creatinine ratio will DC IV fluids and give 1 dose of IV furosemide. I do not yet have her reconciled medicines this may need to be done first thing in the morning. 3. History of Parkinson's disease reported no current resting tremors noted. With multiple admissions overnight do not recall whether or not there was overt evidence for bradykinesia or cogwheeling. Discharge Diagnosis Assessment: Sepsis with previous UTI placed on Macrobid then had acute hepatitis of transaminases in the thousands Severe dementia Overall debility just finished physical therapy at shelter Baca catheter maintenance we'll discontinue Recurrent UTIs Severe COPD Chart Review: No fever Vitals stable WBC to 11.4 Hgb 11 AST/ALT 308/870 from 1499/1590 It appears that Macrobid caused acute hepatitis Patient Interview: Dr. Deleon informs pt that liver is much improved today, and DC will soon be possible. Pt's family states that pt lives at [facility]. Pt does not normally use O2 at [facility], and pt does not receive breathing treatments. Pt does not normally have a catheter at the [facility]. Physical exam stable, lungs sound improved. Pt family states that pts voice is much weaker, and family is concerned about this. Dr. Cheek is PCP. No fever, vital stable, pleasant, oriented times around 1-2 but poor recall and very hard of hearing Regular rate and rhythm, decreased breath sounds in the bases but no rales are noted No edema Assessment: Sepsis with previous UTI placed on Macrobid then had acute hepatitis of transaminases in the thousands Severe dementia Overall debility just finished physical therapy at shelter Baca catheter maintenance we'll discontinue Recurrent UTIs Severe COPD Plan: Check labs tomorrow DC baca cath PT Continue antibiotics until tomorrow will discharge to the shelter on skilled Home O2 eval Scribed by Justino Porter under the direct supervision of Dr. Deleon. Reason Hospital Visit/Course I was contacted initially by shelter staff about Mrs. Johnson the afternoon of the with reports that she had a croupy cough and was finishing a round of Macrobid. They're concerned about her cough and her oxygen level had been in the low 90s. I advised that discontinue Macrobid give her Ceftin a breathing treatment with albuterol and continue every 4 hours when necessary. She is 86 quite frail with DO NOT RESUSCITATE status. I highly doubt there were able to give her any antibiotic. I wasn't told of any nausea or abdominal pain did not hear anything back until I was contacted by the emergency room physician after her emergency room workup including CT scan of chest pelvis which did not reveal any evidence for infectious sites. Most notable laboratory evaluation was profound hepatitis with leukocytosis with neutrophilia and a lactate level little over 4 and an INR of 2.2 in individual who does not have any documented anticoagulant usage. She was subsequently admitted for further investigation of her hepatitis. She is confused and unable to provide any history. She apparently has a history of Parkinson's disease is usually pleasant but has cognitive impairment. She is a patient of Dr. Cheek's. Note from 12/27/16: Patient doing well and responding to IV antibiotics and supportive care. Dementia severe precluding any more details from the patient Patient ready for discharge to the shelter No fever, vital stable, pleasant, confused, very hard of hearing Clear to auscultation bilaterally but distant breath sounds all velazquez No edema Hospital course: patient had an uneventful hospital course she was admitted due to altered mental status and presumed sepsis and was found to have elevated liver enzymes likely due to Macrobid some Macrobid was discontinued and patient was placed on Zosyn to continue the UTI treatment along with broad-spectrum acute bronchitis treatment. She did require home oxygen upon discharge so that was arranged along with nebulizer treatments but due to the severity of her dementia and other comorbidities nothing but a poor prognosis at discharge can be stated. She will have a close follow-up with primary care provider and liver enzymes will be rechecked in 4 days. Discharge Summary Discharge Physical Examination Allergies: Coded Allergies: levofloxacin (Unverified Allergy, Unknown, 10/30/16) Vitals & I&Os Vital Signs Date Time Temp Pulse Resp B/P Pulse Ox O2 Delivery O2 Flow Rate FiO2 12/27/16 09:56 98 3.00 12/27/16 09:00 Nasal Cannula 12/27/16 08:00 97.3 66 20 127/64 Hospital Course Labs (last 24 hrs) Laboratory Tests 12/27/16 06:46: Alanine Aminotransferase (ALT/SGPT) 643H, Albumin 2.4L, Alkaline Phosphatase 155H, Anion Gap 8, Aspartate Amino Transf (AST/SGOT) 164H, BUN/Creatinine Ratio 10, Basophils # (Auto) 0.0, Basophils (%) (Auto) 0, Blood Urea Nitrogen 7, Calcium Level 7.7L, Carbon Dioxide Level 24, Chloride Level 105, Creatinine 0.68 , Eosinophils # (Auto) 0.3, Eosinophils (%) (Auto) 3, Estimat Glomerular Filtration Rate > 60, Glucose Level 115H, Hematocrit 32L, Hemoglobin 10.7L, Lymphocytes # (Auto) 1.0, Lymphocytes (%) (Auto) 9L, Mean Corpuscular Hemoglobin 36H, Mean Corpuscular Hemoglobin Concent 33, Mean Corpuscular Volume 108H, Mean Platelet Volume 10.7H, Monocytes # (Auto) 1.9H, Monocytes (%) (Auto) 17H, Neutrophils # (Auto) 7.7, Neutrophils (%) (Auto) 71, Platelet Count 156, Potassium Level 3.6, Red Blood Count 2.97L, Red Cell Distribution Width 17.4H, Sodium Level 137, Total Bilirubin 1.7H, Total Protein 4.7L, White Blood Count 10.9 Microbiology 12/23/16 Blood Culture - Preliminary, Resulted No growth 12/23/16 MRSA Screen - Final, Complete Pending Labs Laboratory Tests 12/27/16 06:46: Alanine Aminotransferase (ALT/SGPT) 643, Albumin 2.4, Alkaline Phosphatase 155, Anion Gap 8, Aspartate Amino Transf (AST/SGOT) 164, BUN/Creatinine Ratio 10, Basophils # (Auto) 0.0, Basophils (%) (Auto) 0, Blood Urea Nitrogen 7, Calcium Level 7.7, Carbon Dioxide Level 24, Chloride Level 105, Creatinine 0.68, Eosinophils # (Auto) 0.3, Eosinophils (%) (Auto) 3, Estimat Glomerular Filtration Rate > 60, Glucose Level 115, Hematocrit 32, Hemoglobin 10.7, Lymphocytes # (Auto) 1.0, Lymphocytes (%) (Auto) 9, Mean Corpuscular Hemoglobin 36, Mean Corpuscular Hemoglobin Concent 33, Mean Corpuscular Volume 108, Mean Platelet Volume 10.7, Monocytes # (Auto) 1.9, Monocytes (%) (Auto) 17, Neutrophils # (Auto) 7.7, Neutrophils (%) (Auto) 71, Platelet Count 156, Potassium Level 3.6, Red Blood Count 2.97, Red Cell Distribution Width 17.4, Sodium Level 137, Total Bilirubin 1.7, Total Protein 4.7, White Blood Count 10.9 Discharge Home Medications: Active Scripts Active Augmentin 500-125 Tablet (Amoxicillin/Potassium Clav) 1 Each Tablet 1 Each PO BID Iprat-Albut 0.5-3(2.5) mg/3 ml (Ipratropium/Albuterol Sulfate) 3 Ml Ampul.neb 3 Ml INH TID 30 Days Guaifenesin Dm Syrup (Guaifenesin/Dextromethorphan) 5 Ml Syrup 5 Ml PO EVERY 4- 5 HOURS PRN [place] 7.5-325 Tablet (Hydrocodone/Acetaminophen) 1 Each Tablet 1 Tab PO Q8H PRN Reported Albuterol Sulfate 2.5 Mg/3 Ml Vial.neb 2.5 Mg IH Q4H PRN Versabase (Lotion Base No.48) 1 Gm Lotion TP Q12H APPLY LOTION TO BILATERAL LOWER EXTREMITIES Fluticasone Propionate 16 Gm [place].susp 2 Sprays NS HS Loratadine 10 Mg Tablet 10 Mg PO DAILY PRN Pepcid (Famotidine) 20 Mg Tablet 20 Mg PO DAILY PRN Milk of Magnesia (Magnesium Hydroxide) 400 Mg/5 Ml Oral.susp 30 Ml PO DAILY PRN Paroxetine HCl 20 Mg Tablet 20 Mg PO DAILY Metoprolol Tartrate 50 Mg Tablet 50 Mg PO DAILY Levothyroxine Sodium 125 Mcg Tablet 125 Mcg PO 1000 Acetaminophen 325 Mg Tablet 650 Mg PO Q4H PRN Chlorpheniramine Maleate 4 Mg Tablet 4 Mg PO Q8H PRN Hydrea (Hydroxyurea) 500 Mg Cap 500 Mg PO DAILY Aspirin 81 Mg Tab.chew 81 Mg PO DAILY Exemestane 25 Mg Tablet 25 Mg PO DAILY Mirapex (Pramipexole Di-HCl) 0.5 Mg Tablet 0.5 Mg PO 1700 Klor-Con 10 (Potassium Chloride) 10 Meq Tablet.er 10 Meq PO DAILY Miralax (Polyethylene Glycol 3350) 17 Gm Powd.pack 17 Gm PO DAILY Senna (Sennosides) 8.6 Mg Tablet 2 Tab PO HS Instructions to patient/family Please see electonic discharge instructions given to patient. Clinical Quality Measures DVT/VTE Risk/Contraindication: Risk Factor Score Per Nursin RFS Level Per Nursing on Admit: 2=Moderate CARLIE DELEON DO Dec 27, 2016 10:14
[2016-12-27] MEDS: LEVOTHYROXINE 125 MCG (LEVOTHROID) TABLET PO SCH (10:52)
--- NOTE | 2017-01-07 08:25 | Physician Query ---
PQ-Intro New Diagnosis Admission/Discharge Admission Date: Dec 23, 2016 at 04:10 Discharge Date: Dec 27, 2016 at 11:35 The medical record reflects the following clinical scenario: History/Risk Factors: [Sepsis with previous UTI] Clinical Findings: [on 12/25/16- 2 days after admit - elevated WBC, Temp, HR, lactic acid was 4.6 ( 4.2 on admit)] Treatment: [Zosyn and IV Vancomycin] Question: What condition best reflects the above clinical scenario? Please document below. 1. [Sepsis] 2. [UTI] 3. Other, with explanation of the clinical findings. 4. Clinically undetermined, no explanation for the clinical findings. What condition reflects above: 1 Please remember a lack of response to the above will prompt a phone page by [facility]/ coding staff. In responding to this query, please exercise your independent professional judgment. The purpose of this communication is to more accurately reflect the complexity of your patients condition. The fact that a question is asked does not imply that any particular answer is desired or expected. Thank you for your timely response to this clarification. Requestors name: [ ] Phone # [ ] THIS PHYSICIAN QUERY FORM IS A PERMANENT PART OF THE MEDICAL RECORD ANGELO AZUL Jan 07, 2017 08:25 CARLIE DELEON DO Jan 08, 2017 07:44
[2017-01-25] MEDS ORDERED: MORP100S3 PO (12:05)
[2017-01-25] MEDS ORDERED: LORA2ORA PO (12:05)
== END 2016-12-27 11:35 | DRG 441 ==
LOC: EDUNIT# 23:48 → ER 23:50 → ICU 12-23 04:10 → 4TH 12-24 19:50
PROVIDERS: ADMIT Internal Medicine; ATTEND Internal Medicine
DX: K71.2 Toxic liver disease with acute hepatitis (principal); T37.8X5A Adverse effect of other specified systemic anti-infectives and antiparasitics, initial encounter; A41.9 Sepsis, unspecified organism; N39.0 Urinary tract infection, site not specified; J44.0 Chronic obstructive pulmonary disease with (acute) lower respiratory infection; J20.9 Acute bronchitis, unspecified; G20 Parkinson's disease; I11.0 Hypertensive heart disease with heart failure; I50.9 Heart failure, unspecified; Z66 Do not resuscitate; E03.9 Hypothyroidism, unspecified; F41.9 Anxiety disorder, unspecified; R13.11 Dysphagia, oral phase; G30.1 Alzheimer's disease with late onset; F02.80 Dementia in other diseases classified elsewhere, unspecified severity, without behavioral disturbance, psychotic disturbance, mood disturbance, and anxiety; R53.81 Other malaise
CPT/HCPCS: 36415; 71010; 71250; 74177; 80048; 80053; 80074; 81000; 83605; 83690; 83735; 83880; 84100; 84484; 85025; 85610; 85730; 87040; 87081; 93005; 94640; 94760; 96365; 96367

== ENCOUNTER 2017-01-21 11:13 | Emergency (ER) | payer MEDICARE, MEDICAID ==
[~2017-01-21] VITALS: Ht 157.5 cm; Wt 72.6 kg
[~2017-01-21 11:13] MED LIST changes: -CATHETER FLUSH 10 ML SYR IV PRN; -CEFD300C3 PO; -EMOL226L TP; -GUAI-818 PO; -HYDR500C2 PO; -IOHEXOL 350 MG/ML 100 ML (OMNIPAQUE 350) VIAL IV ONE; -LIDOCAINE 1% INJ 20 ML (XYLOCAINE) VIAL INJ ONE; -LORA2ORA PO; -MORP100S3 PO; -NS 100 ML (IVPB) BAG IV ONE; -POLY255P PO; -POTA10TA36 PO; -cefTRIAXone 1 GM (ROCEPHIN) VIAL IM ONE
--- OUTSIDE RECORDS SUMMARY | 2017-01-21 11:22 | XMS REPORT | Continuity of Care Document ---
Author Author [facility] Organization [facility] Address Unknown Phone Unavailable Allergies Active Description Code Type Severity Reaction Onset Reported/Identified Relationship to Patient Clinical Status Yes levofloxacin [id number] Drug Allergy Unknown N/A 10/30/2016 Medications Problems [...] NEOPLASM OF MARKOS 11/02/2016 MISAEL BARRERA MD R Ot Z12.31 ENCNTR SCREEN MAMMOGRAM FOR MALIGNANT NE 11/13/2016 TIN STOCK Ot G20 PARKINSON'S DISEASE 11/13/2016 TIN STOCK L Ot I10 ESSENTIAL (PRIMARY) HYPERTENSION 11/13/2016 TIN STOCK Ot R04.0 EPISTAXIS 11/13/2016 TIN STOCK Ot Z79.899 OTHER TAX INTERN (CURRENT) DRUG THERAPY 11/15/2016 TIN STOCK L Ot G20 PARKINSON'S DISEASE 11/15/2016 TIN STOCK Ot I10 ESSENTIAL (PRIMARY) HYPERTENSION 11/15/2016 TIN STOCK Ot R04.0 EPISTAXIS 11/15/2016 TIN STOCK Ot Z79.899 OTHER SHELTER (CURRENT) DRUG THERAPY 12/25/2016 HAFSA JIN MD Ot B17.9 ACUTE VIRAL HEPATITIS, UNSPECIFIED 12/25/2016 HAFSA JIN MD Ot E03.9 HYPOTHYROIDISM, UNSPECIFIED 12/25/2016 HAFSA JIN MD Ot F03.90 UNSPECIFIED DEMENTIA WITHOUT BEHAVIORAL 12/25/2016 HAFSA JIN MD Ot F41.9 ANXIETY DISORDER, UNSPECIFIED 12/25/2016 HAFSA JIN MD, Ot G20 PARKINSON'S DISEASE 12/25/2016 HAFSA JIN MD Ot I11.0 HYPERTENSIVE HEART DISEASE WITH HEART FA 12/25/2016 HAFSA JIN MD Ot I50.9 HEART FAILURE, UNSPECIFIED 12/25/2016 HAFSA JIN MD Ot J40 BRONCHITIS, NOT SPECIFIED ACUTE OR CH 12/25/2016 HAFSA JIN MD Ot N39.0 URINARY TRACT INFECTION, SITE NOT SPECIF 12/25/2016 DAVIN PACE, HAFSA Winters Ot R13.11 DYSPHAGIA, ORAL PHASE 12/25/2016 DAVIN PACE, HAFSA Winters Ot Z66 DO NOT RESUSCITATE 12/25/2016 DAVIN PACE, HAFSA Winters Ot B17.9 ACUTE VIRAL HEPATITIS, UNSPECIFIED 12/25/2016 DAVIN PACE, HAFSA Winters Ot E03.9 HYPOTHYROIDISM, UNSPECIFIED 12/25/2016 DAVIN PACE, HAFSA Winters Ot F03.90 UNSPECIFIED DEMENTIA WITHOUT BEHAVIORAL 12/25/2016 DAVIN PACE, HAFSA Winters Ot F41.9 ANXIETY DISORDER, UNSPECIFIED 12/25/2016 DAVIN PACE, HAFSA Winters Ot G20 PARKINSON'S DISEASE 12/25/2016 DAVIN PACE, HAFSA Winters Ot I11.0 HYPERTENSIVE HEART DISEASE WITH HEART FA 12/25/2016 DAVIN PACE, HAFSA Winters Ot I50.9 HEART FAILURE, UNSPECIFIED 12/25/2016 DAVIN PACE, HAFSA Winters Ot J40 BRONCHITIS, NOT SPECIFIED ACUTE OR CH 12/25/2016 DAVIN PACE, HAFSA Winters Ot N39.0 URINARY TRACT INFECTION, SITE NOT SPECIF 12/25/2016 DAVIN PACE, HAFSA Winters Ot R13.11 DYSPHAGIA, ORAL PHASE 12/25/2016 DAVIN PACE, HAFSA Winters Ot Z66 DO NOT RESUSCITATE 12/25/2016 DAVIN PACE, HAFSA Winters Ot B17.9 ACUTE VIRAL HEPATITIS, UNSPECIFIED 12/25/2016 DAVIN PACE, HAFSA Winters Ot E03.9 HYPOTHYROIDISM, UNSPECIFIED 12/25/2016 DAVIN PACE, HAFSA Winters Ot F03.90 UNSPECIFIED DEMENTIA WITHOUT BEHAVIORAL 12/25/2016 DAVIN PACE, HAFSA Winters Ot F41.9 ANXIETY DISORDER, UNSPECIFIED 12/25/2016 DAVIN PACE, HAFSA Winters Ot G20 PARKINSON'S DISEASE 12/25/2016 DAVIN PACE, HAFSA Winters Ot I11.0 HYPERTENSIVE HEART DISEASE WITH HEART FA 12/25/2016 DAVIN PACE, HAFSA Winters Ot I50.9 HEART FAILURE, UNSPECIFIED 12/25/2016 DAVIN PACE, HAFSA Winters Ot J40 BRONCHITIS, NOT SPECIFIED ACUTE OR CH 12/25/2016 DAVIN PACE, HAFSA Winters Ot N39.0 URINARY TRACT INFECTION, SITE NOT SPECIF 12/25/2016 HAFSA JIN MD Ot R13.11 DYSPHAGIA, ORAL PHASE 12/25/2016 DAVIN PACE, HAFSA Winters Ot Z66 DO NOT RESUSCITATE 12/27/2016 DAVIN PACE, HAFSA Winters Ot A41.9 SEPSIS, UNSPECIFIED ORGANISM 12/27/2016 HAFSA JIN MD Ot B17.9 ACUTE VIRAL HEPATITIS, UNSPECIFIED 12/27/2016 HAFSA JIN MD Ot E03.9 HYPOTHYROIDISM, UNSPECIFIED 12/27/2016 HAFSA JIN MD Ot 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 12/27/2016 HAFSA JIN MD Ot F03.90 UNSPECIFIED DEMENTIA WITHOUT BEHAVIORAL 12/27/2016 HAFSA JIN MD Ot F41.9 ANXIETY DISORDER, UNSPECIFIED 12/27/2016 HAFSA JIN MD Ot G20 PARKINSON'S DISEASE 12/27/2016 HAFSA JIN MD Ot 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 12/27/2016 HAFSA JIN MD Ot I11.0 HYPERTENSIVE HEART DISEASE WITH HEART FA 12/27/2016 HAFSA JIN MD Ot I50.9 HEART FAILURE, UNSPECIFIED 12/27/2016 HAFSA JIN MD Ot J20.9 ACUTE BRONCHITIS, UNSPECIFIED 12/27/2016 HAFSA JIN MD Ot J40 BRONCHITIS, NOT SPECIFIED ACUTE OR CH 12/27/2016 HAFSA JIN MD Ot J44.0 CHRONIC OBSTRUCTIVE PULMON DISEASE W ACU 12/27/2016 HAFSA JIN MD Ot K71.2 TOXIC LIVER DISEASE WITH ACUTE HEPATITIS 12/27/2016 HAFSA JIN MD Ot N39.0 URINARY TRACT INFECTION, SITE NOT SPECIF 12/27/2016 HAFSA JIN MD Ot R13.11 DYSPHAGIA, ORAL PHASE 12/27/2016 HAFSA JIN MD Ot R53.81 OTHER MALAISE 12/27/2016 HAFSA JIN MD Ot T37.8X5A ADVERSE EFFECT OF SYSTEMIC ANTI-INFECT/ P 12/27/2016 HAFSA JIN MD Ot Z66 DO NOT RESUSCITATE 01/01/2017 MISAEL BARRERA MD Ot R41.0 DISORIENTATION, UNSPECIFIED 01/01/2017 MISAEL BARRERA MD Ot S09.90XA UNSPECIFIED INJURY OF HEAD, INITIAL ENCO 01/01/2017 MISAEL BARRERA MD Ot W19.XXXA UNSPECIFIED FALL, INITIAL ENCOUNTER 01/03/2017 MISAEL BARRERA MD Ot R41.0 DISORIENTATION, UNSPECIFIED 01/03/2017 MISAEL BARRERA MD Ot S09.90XA UNSPECIFIED INJURY OF HEAD, INITIAL ENCO 01/03/2017 MISAEL BARRERA MD Ot W19.XXXA UNSPECIFIED FALL, INITIAL ENCOUNTER Procedures Results Test Result Range Complete blood [...] mean volume measurement 10.2 [foz_ us] 7.4-10.4 [id number] - 12/07/16 11:49 Serum or plasma urea nitrogen measurement (mass/volume) 7 mg /dL 7-18 Serum or plasma creatinine measurement (mass/volume) 0.81 mg /dL 0.60-1.30 Serum or plasma urea nitrogen/creatinine mass ratio 9 NRG Serum or plasma creatinine measurement with calculation of estimated glomerular filtration rate > NRG Complete blood count (CBC) with automated white blood cell (WBC) differential - 12/23/16 00:30 Blood leukocytes automated count (number/volume) 20.5 10*3/ uL 4.3-11.0 Blood erythrocytes automated count (number/volume) 3.30 10*6 /uL 4.35-5.85 Venous blood hemoglobin measurement (mass/volume) 12.3 g/dL 11.5-16.0 Blood hematocrit (volume fraction) 35 % 35-52 Automated erythrocyte mean corpuscular volume 107 [foz_us] 80-99 Automated erythrocyte mean corpuscular hemoglobin (mass per erythrocyte) 37 pg 25-34 Automated erythrocyte mean corpuscular hemoglobin concentration measurement ( mass/volume) 35 g/dL 32-36 Automated erythrocyte distribution width ratio 16.2 % 10.0-14.5 Automated blood platelet count (count/volume) 219 10*3/uL 130-400 Automated blood platelet mean volume measurement 10.4 [foz_ us] 7.4-10.4 Automated blood neutrophils/100 leukocytes 70 % 42-75 Automated blood lymphocytes/100 leukocytes 5 % 12-44 Blood monocytes/100 leukocytes 25 % 0-12 Automated blood eosinophils/100 leukocytes 0 % 0-10 Automated blood basophils/100 leukocytes 0 % 0-10 Blood neutrophils automated count (number/volume) 14.3 10*3 1.8-7.8 Blood lymphocytes automated count (number/volume) 0.9 10*3 1.0-4.0 Blood monocytes automated count (number/volume) 5.2 10*3 0.0-1.0 Automated eosinophil count 0.0 10*3/uL 0.0-0.3 Automated blood basophil count (count/volume) 0.0 10*3/uL 0.0-0.1 Comprehensive metabolic panel - 12/23/16 00:30 Serum or plasma sodium measurement (moles/volume) 133 mmol/ L 135-145 Serum or plasma potassium measurement (moles/volume) 4.4 mmol/L 3.6-5.0 Serum or plasma chloride measurement (moles/volume) 99 mmol/ L 98-107 Carbon dioxide 17 mmol/L 21-32 Serum or plasma anion gap determination (moles/volume) 17 mmol/L 5-14 Serum or plasma urea nitrogen measurement (mass/volume) 14 mg/dL 7-18 Serum or plasma creatinine measurement (mass/volume) 0.89 mg /dL 0.60-1.30 Serum or plasma urea nitrogen/creatinine mass ratio 16 NRG Serum or plasma creatinine measurement with calculation of estimated glomerular filtration rate 60 NRG Serum or plasma glucose measurement (mass/volume) 69 mg/dL 70-105 Serum or plasma calcium measurement (mass/volume) 9.0 mg/dL 8.5-10.1 Serum or plasma total bilirubin measurement (mass/volume) 3.0 mg/dL 0.1-1.0 Serum or plasma alkaline phosphatase measurement (enzymatic activity/volume) 255 U/L 40-136 Serum or plasma aspartate aminotransferase measurement (enzymatic activity/ volume) 4581 U/L 5-34 Serum or plasma alanine aminotransferase measurement (enzymatic activity/volume ) 2688 U/L 0-55 Serum or plasma protein measurement (mass/volume) 6.2 g/dL 6.4-8.2 Serum or plasma albumin measurement (mass/volume) 3.4 g/dL 3.2-4.5 Magnesium - 12/23/16 00:30 Magnesium 1.9 mg/dL 1.8-2.4 Serum or plasma troponin i.cardiac measurement (mass/volume) - 12/23/16 00:30 Serum or plasma troponin i.cardiac measurement (mass/volume) < ng/mL <0.30 Serum or plasma lithium measurement (moles/volume) - 12/23/16 00:30 BNP level 1363.5 pg/mL <100.0 Lipase - 12/23/16 00:30 Lipase 22 U/L 8-78 PT panel in platelet poor plasma by coagulation assay - 12/23/16 00:30 Prothrombin time (PT) in platelet poor plasma by coagulation assay 24.4 s 12.2-14.7 INR in platelet poor plasma or blood by coagulation assay 2.2 0.8-1.4 Activated partial thromboplastin time (aPTT) in platelet poor plasma bycoagulation assay - 12/23/16 00:30 Activated partial thromboplastin time (aPTT) in platelet poor plasma bycoagulation assay 33 s 24-35 Acute hepatitis panel - 12/23/16 00:30 Confirmatory quantitative serum or plasma hepatitis B virus surface antigen measurement Non-Reactive Non-Reactive Hepatitis A virus IgM antibody assay Non-Reactive Non-Reactive Hepatitis B virus core IgM antibody assay Non-Reactive Non-Reactive Serum hepatitis C virus antibody detection Non-Reactive Non-Reactive Blood lactic acid measurement (moles/volume) - 12/23/16 01:30 Blood lactic acid measurement (moles/volume) 4.6 mmol/L 0.5-2.0 Bacterial blood culture - 12/23/16 01:30 Bacterial blood culture NG NRG Serum or plasma lactate measurement (moles/volume) - 12/23/16 03:14 Serum or plasma lactate measurement (moles/volume) 4.2 mmol/ L 0.5-2.0 Bacterial blood culture - 12/23/16 03:14 Bacterial blood culture NG NRG Complete urinalysis with reflex to culture - 12/23/16 05:00 Urine color determination YELLOW NRG Urine clarity determination CLEAR NRG Urine pH measurement by test strip 6.5 5 -9 Specific gravity of urine by test strip 1.010 1.016-1.022 Urine protein assay by test strip, semi-quantitative 3+ NEGATIVE Urine glucose detection by automated test strip NEGATIVE NEGATIVE Erythrocytes detection in urine sediment by light microscopy 3+ NEGATIVE Urine ketones detection by automated test strip NEGATIVE NEGATIVE Urine nitrite detection by test strip NEGATIVE NEGATIVE Urine total bilirubin detection by test strip NEGATIVE NEGATIVE Urine urobilinogen measurement by automated test strip (mass/volume) 1 mg/dL NORMAL Urine leukocyte esterase detection by dipstick 1+ NEGATIVE Automated urine sediment erythrocyte count by microscopy (number/high power field) [HPF] NRG Automated urine sediment leukocyte count by microscopy (number/high power field ) RARE NRG Bacteria detection in urine sediment by light microscopy NEGATIVE NRG Squamous epithelial cells detection in urine sediment by light microscopy 10-25 NRG Crystals detection in urine sediment by light microscopy NONE NRG Casts detection in urine sediment by light microscopy NONE NRG Mucus detection in urine sediment by light microscopy NEGATIVE NRG Complete urinalysis with reflex to culture NO NRG Methicillin resistant Staphylococcus aureus (MRSA) screening culture - 05:27 MRSA SCREEN RESULT MRSA ISOLATED NRG Complete blood count (CBC) with automated white blood cell (WBC) differential - 12/23/16 05:40 Blood leukocytes automated count (number/volume) 20.1 10*3/ uL 4.3-11.0 Blood erythrocytes automated count (number/volume) 3.34 10*6 /uL 4.35-5.85 Venous blood hemoglobin measurement (mass/volume) 12.3 g/dL 11.5-16.0 Blood hematocrit (volume fraction) 36 % 35-52 Automated erythrocyte mean corpuscular volume 106 [foz_us] 80-99 Automated erythrocyte mean corpuscular hemoglobin (mass per erythrocyte) 37 pg 25-34 Automated erythrocyte mean corpuscular hemoglobin concentration measurement ( mass/volume) 35 g/dL 32-36 Automated erythrocyte distribution width ratio 16.3 % 10.0-14.5 Automated blood platelet count (count/volume) 223 10*3/uL 130-400 Automated blood platelet mean volume measurement 11.2 [foz_ us] 7.4-10.4 Automated blood neutrophils/100 leukocytes 71 % 42-75 Automated blood lymphocytes/100 leukocytes 5 % 12-44 Blood monocytes/100 leukocytes 24 % 0-12 Automated blood eosinophils/100 leukocytes 0 % 0-10 Automated blood basophils/100 leukocytes 0 % 0-10 Blood neutrophils automated count (number/volume) 14.2 10*3 1.8-7.8 Blood lymphocytes automated count (number/volume) 1.0 10*3 1.0-4.0 Blood monocytes automated count (number/volume) 4.9 10*3 0.0-1.0 Automated eosinophil count 0.0 10*3/uL 0.0-0.3 Automated blood basophil count (count/volume) 0.0 10*3/uL 0.0-0.1 Whole blood basic metabolic panel - 12/23/16 05:40 Serum or plasma sodium measurement (moles/volume) 134 mmol/ L 135-145 Serum or plasma potassium measurement (moles/volume) 4.1 mmol/L 3.6-5.0 Serum or plasma chloride measurement (moles/volume) 101 mmol /L 98-107 Carbon dioxide 20 mmol/L 21-32 Serum or plasma anion gap determination (moles/volume) 13 mmol/L 5-14 Serum or plasma urea nitrogen measurement (mass/volume) 14 mg/dL 7-18 Serum or plasma creatinine measurement (mass/volume) 0.85 mg /dL 0.60-1.30 Serum or plasma urea nitrogen/creatinine mass ratio 16 NRG Serum or plasma creatinine measurement with calculation of estimated glomerular filtration rate > NRG Serum or plasma glucose measurement (mass/volume) 81 mg/dL 70-105 Serum or plasma calcium measurement (mass/volume) 8.6 mg/dL 8.5-10.1 Serum or plasma phosphate measurement (mass/volume) - 12/23/16 05:40 Serum or plasma phosphate measurement (mass/volume) 2.8 mg/ dL 2.3-4.7 Magnesium - 12/23/16 05:40 Magnesium 1.8 mg/dL 1.8-2.4 Comprehensive metabolic panel - 12/24/16 04:00 Serum or plasma sodium measurement (moles/volume) 141 mmol/ L 135-145 Serum or plasma potassium measurement (moles/volume) 3.1 mmol/L 3.6-5.0 Serum or plasma chloride measurement (moles/volume) 105 mmol /L 98-107 Carbon dioxide 20 mmol/L 21-32 Serum or plasma anion gap determination (moles/volume) 16 mmol/L 5-14 Serum or plasma urea nitrogen measurement (mass/volume) 15 mg/dL 7-18 Serum or plasma creatinine measurement (mass/volume) 0.92 mg /dL 0.60-1.30 Serum or plasma urea nitrogen/creatinine mass ratio 16 NRG Serum or plasma creatinine measurement with calculation of estimated glomerular filtration rate 58 NRG Serum or plasma glucose measurement (mass/volume) 81 mg/dL 70-105 Serum or plasma calcium measurement (mass/volume) 8.3 mg/dL 8.5-10.1 Serum or plasma total bilirubin measurement (mass/volume) 2.7 mg/dL 0.1-1.0 Serum or plasma alkaline phosphatase measurement (enzymatic activity/volume) 205 U/L 40-136 Serum or plasma aspartate aminotransferase measurement (enzymatic activity/ volume) 1499 U/L 5-34 Serum or plasma alanine aminotransferase measurement (enzymatic activity/volume ) 1590 U/L 0-55 Serum or plasma protein measurement (mass/volume) 5.1 g/dL 6.4-8.2 Serum or plasma albumin measurement (mass/volume) 2.9 g/dL 3.2-4.5 Serum or plasma phosphate measurement (mass/volume) - 12/24/16 04:00 Serum or plasma phosphate measurement (mass/volume) 2.3 mg/ dL 2.3-4.7 Magnesium - 12/24/16 04:00 Magnesium 1.6 mg/dL 1.8-2.4 Complete blood count (CBC) with automated white blood cell (WBC) differential - 12/24/16 04:10 Blood leukocytes automated count (number/volume) 16.1 10*3/ uL 4.3-11.0 Blood erythrocytes automated count (number/volume) 3.45 10*6 /uL 4.35-5.85 Venous blood hemoglobin measurement (mass/volume) 12.4 g/dL 11.5-16.0 Blood hematocrit (volume fraction) 37 % 35-52 Automated erythrocyte mean corpuscular volume 107 [foz_us] 80-99 Automated erythrocyte mean corpuscular hemoglobin (mass per erythrocyte) 36 pg 25-34 Automated erythrocyte mean corpuscular hemoglobin concentration measurement ( mass/volume) 34 g/dL 32-36 Automated erythrocyte distribution width ratio 16.5 % 10.0-14.5 Automated blood platelet count (count/volume) 259 10*3/uL 130-400 Automated blood platelet mean volume measurement 11.0 [foz_ us] 7.4-10.4 Automated blood neutrophils/100 leukocytes 68 % 42-75 Automated blood lymphocytes/100 leukocytes 5 % 12-44 Blood monocytes/100 leukocytes 26 % 0-12 Automated blood eosinophils/100 leukocytes 0 % 0-10 Automated blood basophils/100 leukocytes 0 % 0-10 Blood neutrophils automated count (number/volume) 11.0 10*3 1.8-7.8 Blood lymphocytes automated count (number/volume) 0.9 10*3 1.0-4.0 Blood monocytes automated count (number/volume) 4.2 10*3 0.0-1.0 Automated eosinophil count 0.0 10*3/uL 0.0-0.3 Automated blood basophil count (count/volume) 0.1 10*3/uL 0.0-0.1 Complete blood count (CBC) with automated white blood cell (WBC) differential - 12/25/16 05:10 Blood leukocytes automated count (number/volume) 12.6 10*3/ uL 4.3-11.0 Blood erythrocytes automated count (number/volume) 3.29 10*6 /uL 4.35-5.85 Venous blood hemoglobin measurement (mass/volume) 11.9 g/dL 11.5-16.0 Blood hematocrit (volume fraction) 35 % 35-52 Automated erythrocyte mean corpuscular volume 106 [foz_us] 80-99 Automated erythrocyte mean corpuscular hemoglobin (mass per erythrocyte) 36 pg 25-34 Automated erythrocyte mean corpuscular hemoglobin concentration measurement ( mass/volume) 34 g/dL 32-36 Automated erythrocyte distribution width ratio 16.8 % 10.0-14.5 Automated blood platelet count (count/volume) 221 10*3/uL 130-400 Automated blood platelet mean volume measurement 10.1 [foz_ us] 7.4-10.4 Automated blood neutrophils/100 leukocytes 66 % 42-75 Automated blood lymphocytes/100 leukocytes 7 % 12-44 Blood monocytes/100 leukocytes 26 % 0-12 Automated blood eosinophils/100 leukocytes 1 % 0-10 Automated blood basophils/100 leukocytes 1 % 0-10 Blood neutrophils automated count (number/volume) 8.3 10*3 1.8-7.8 Blood lymphocytes automated count (number/volume) 0.8 10*3 1.0-4.0 Blood monocytes automated count (number/volume) 3.3 10*3 0.0-1.0 Automated eosinophil count 0.1 10*3/uL 0.0-0.3 Automated blood basophil count (count/volume) 0.1 10*3/uL 0.0-0.1 Complete blood count (CBC) with automated white blood cell (WBC) differential - 12/26/16 05:30 Blood leukocytes automated count (number/volume) 11.4 10*3/ uL 4.3-11.0 Blood erythrocytes automated count (number/volume) 3.07 10*6 /uL 4.35-5.85 Venous blood hemoglobin measurement (mass/volume) 11.0 g/dL 11.5-16.0 Blood hematocrit (volume fraction) 33 % 35-52 Automated erythrocyte mean corpuscular volume 108 [foz_us] 80-99 Automated erythrocyte mean corpuscular hemoglobin (mass per erythrocyte) 36 pg 25-34 Automated erythrocyte mean corpuscular hemoglobin concentration measurement ( mass/volume) 33 g/dL 32-36 Automated erythrocyte distribution width ratio 17.1 % 10.0-14.5 Automated blood platelet count (count/volume) 191 10*3/uL 130-400 Automated blood platelet mean volume measurement 10.7 [foz_ us] 7.4-10.4 Automated blood neutrophils/100 leukocytes 67 % 42-75 Automated blood lymphocytes/100 leukocytes 6 % 12-44 Blood monocytes/100 leukocytes 24 % 0-12 Automated blood eosinophils/100 leukocytes 2 % 0-10 Automated blood basophils/100 leukocytes 0 % 0-10 Blood neutrophils automated count (number/volume) 7.6 10*3 1.8-7.8 Blood lymphocytes automated count (number/volume) 0.7 10*3 1.0-4.0 Blood monocytes automated count (number/volume) 2.7 10*3 0.0-1.0 Automated eosinophil count 0.3 10*3/uL 0.0-0.3 Automated blood basophil count (count/volume) 0.1 10*3/uL 0.0-0.1 Comprehensive metabolic panel - 12/26/16 05:30 Serum or plasma sodium measurement (moles/volume) 139 mmol/ L 135-145 Serum or plasma potassium measurement (moles/volume) 3.3 mmol/L 3.6-5.0 Serum or plasma chloride measurement (moles/volume) 106 mmol /L 98-107 Carbon dioxide 24 mmol/L 21-32 Serum or plasma anion gap determination (moles/volume) 9 mmol/L 5-14 Serum or plasma urea nitrogen measurement (mass/volume) 7 mg /dL 7-18 Serum or plasma creatinine measurement (mass/volume) 0.75 mg /dL 0.60-1.30 Serum or plasma urea nitrogen/creatinine mass ratio 9 NRG Serum or plasma creatinine measurement with calculation of estimated glomerular filtration rate > NRG Serum or plasma glucose measurement (mass/volume) 118 mg/dL 70-105 Serum or plasma calcium measurement (mass/volume) 7.9 mg/dL 8.5-10.1 Serum or plasma total bilirubin measurement (mass/volume) 2.1 mg/dL 0.1-1.0 Serum or plasma alkaline phosphatase measurement (enzymatic activity/volume) 160 U/L 40-136 Serum or plasma aspartate aminotransferase measurement (enzymatic activity/ volume) 308 U/L 5-34 Serum or plasma alanine aminotransferase measurement (enzymatic activity/volume ) 870 U/L 0-55 Serum or plasma protein measurement (mass/volume) 4.9 g/dL 6.4-8.2 Serum or plasma albumin measurement (mass/volume) 2.7 g/dL 3.2-4.5 Complete blood count (CBC) with automated white blood cell (WBC) differential - 12/27/16 06:46 Blood leukocytes automated count (number/volume) 10.9 10*3/ uL 4.3-11.0 Blood erythrocytes automated count (number/volume) 2.97 10*6 /uL 4.35-5.85 Venous blood hemoglobin measurement (mass/volume) 10.7 g/dL 11.5-16.0 Blood hematocrit (volume fraction) 32 % 35-52 Automated erythrocyte mean corpuscular volume 108 [foz_us] 80-99 Automated erythrocyte mean corpuscular hemoglobin (mass per erythrocyte) 36 pg 25-34 Automated erythrocyte mean corpuscular hemoglobin concentration measurement ( mass/volume) 33 g/dL 32-36 Automated erythrocyte distribution width ratio 17.4 % 10.0-14.5 Automated blood platelet count (count/volume) 156 10*3/uL 130-400 Automated blood platelet mean volume measurement 10.7 [foz_ us] 7.4-10.4 Automated blood neutrophils/100 leukocytes 71 % 42-75 Automated blood lymphocytes/100 leukocytes 9 % 12-44 Blood monocytes/100 leukocytes 17 % 0-12 Automated blood eosinophils/100 leukocytes 3 % 0-10 Automated blood basophils/100 leukocytes 0 % 0-10 Blood neutrophils automated count (number/volume) 7.7 10*3 1.8-7.8 Blood lymphocytes automated count (number/volume) 1.0 10*3 1.0-4.0 Blood monocytes automated count (number/volume) 1.9 10*3 0.0-1.0 Automated eosinophil count 0.3 10*3/uL 0.0-0.3 Automated blood basophil count (count/volume) 0.0 10*3/uL 0.0-0.1 Comprehensive metabolic panel - 12/27/16 06:46 Serum or plasma sodium measurement (moles/volume) 137 mmol/ L 135-145 Serum or plasma potassium measurement (moles/volume) 3.6 mmol/L 3.6-5.0 Serum or plasma chloride measurement (moles/volume) 105 mmol /L 98-107 Carbon dioxide 24 mmol/L 21-32 Serum or plasma anion gap determination (moles/volume) 8 mmol/L 5-14 Serum or plasma urea nitrogen measurement (mass/volume) 7 mg /dL 7-18 Serum or plasma creatinine measurement (mass/volume) 0.68 mg /dL 0.60-1.30 Serum or plasma urea nitrogen/creatinine mass ratio 10 NRG Serum or plasma creatinine measurement with calculation of estimated glomerular filtration rate > NRG Serum or plasma glucose measurement (mass/volume) 115 mg/dL 70-105 Serum or plasma calcium measurement (mass/volume) 7.7 mg/dL 8.5-10.1 Serum or plasma total bilirubin measurement (mass/volume) 1.7 mg/dL 0.1-1.0 Serum or plasma alkaline phosphatase measurement (enzymatic activity/volume) 155 U/L 40-136 Serum or plasma aspartate aminotransferase measurement (enzymatic activity/ volume) 164 U/L 5-34 Serum or plasma alanine aminotransferase measurement (enzymatic activity/volume ) 643 U/L 0-55 Serum or plasma protein measurement (mass/volume) 4.7 g/dL 6.4-8.2 Serum or plasma albumin measurement (mass/volume) 2.4 g/dL 3.2-4.5 Encounters ACCT No. Visit Date/Time Discharge Status Pt. Type Provider Facility Loc./Unit Complaint [id number] 12/23/2016 04:10:00 2016 11:35:00 DIS Outpatient DAVIN PACE, HAFSA Winters [facility] 4TH DYSPNEA; SEPSIS; ACUTE HEPATITIS [id number] 11/13/2016 11:41:00 2016 13:54:00 DIS Emergency T[facility] ST[facility] ER NOSE BLEED [id number] 10/30/2016 00:04:00 2015 03:36:00 DIS Emergency MARY ROMERO DO [facility] ER AMS [id number] 09/02/2015 13:14:00 2014 23:59:59 CLS Outpatient MISAEL BARRERA MD [facility] RAD SCREENING [id number] 08/27/2014 13:42:00 2013 23:59:59 CLS Outpatient MISAEL BARRERA MD [facility] RAD ROUTINE [id number] 08/11/2014 15:32:00 2013 23:59:59 CLS Outpatient MISAEL BARRERA MD [facility] RAD COUGH X 2 WEEKS [id number] 01/28/2014 13:38:00 2013 00:01:00 DIS Outpatient NIKOLAI SANTILLAN MD [facility] ONC [id number] 02/18/2014 13:32:00 2013 23:59:59 CLS Outpatient NIKOLAI SANTILLAN MD [facility] RAD CA OF BREAST, ABD PAIN [id number] 09/09/2013 13:00:00 2012 00:01:00 DIS Outpatient NIKOLAI SANTILLAN MD [facility] ONC [id number] 09/15/2013 10:03:00 2012 23:59:59 CLS Outpatient NIKOLAI SANTILLAN MD [facility] RAD HX OF BREAST CA, ABD PAIN [id number] 08/27/2013 15:59:00 2012 23:59:59 CLS Outpatient OBINNA PACHECO MD [facility] RAD INCREASED PAIN [id number] 08/12/2013 14:24:00 2012 23:59:59 CLS Outpatient NIKOLAI SANTILLAN MD [facility] RAD BREAST CA [id number] 07/20/2013 13:32:00 2012 14:19:00 DIS Outpatient NIKOLAI SANTILLAN MD [facility] ONC [id number] 12/07/2016 11:32:00 ACT Outpatient MISAEL BARRERA MD [facility] RAD CONFUSION [id number] 02/25/2014 00:00:00 Document Registration [id number] 02/04/2013 13:24:00 Document Registration [id number] 01/27/2013 08:29:00 Document Registration
--- NOTE | 2017-01-21 12:26 | ED Upper Extremity ---
General Chief Complaint: Upper Extremity Stated Complaint: LEFT HAND/ARM RED/SWOLLEN Nursing Triage Note: c/o new onset edema to left arm. Noticed symptoms today. Nursing Sepsis Screen: No Definite Risk Source: patient, family Exam Limitations: clinical condition History of Present Illness Time seen by provider: 12:15 Initial Comments As above and below. Onset: this morning Pain/Injury Location: left arm Method of Injury: unknown Modifying Factors: Improves With Other (none) Allergies and Home Medications Allergies Coded Allergies: levofloxacin (Unverified Allergy, Unknown, 10/30/16) Home Medications Acetaminophen 325 Mg Tablet, 650 MG PO Q4H PRN for MILD PAIN/TEMP, (Reported) TAKES 2 (325 MG) TABLETS Albuterol Sulfate 2.5 Mg/3 Ml Vial.neb, 2.5 MG IH Q4H PRN for SHORTNESS OF BREATH, (Reported) Aspirin 81 Mg Tab.chew, 81 MG PO DAILY, (Reported) Cefdinir 300 Mg Capsule, 300 MG PO BID, #20 Ref 0 Prescribed by: JOSE VALIENTE on 01/21/17 1518 Chlorpheniramine Maleate 4 Mg Tablet, 4 MG PO Q8H PRN for ABNORMALITY OF GAIT, ( Reported) Emollient Combination No.40 226 Gm Lotion, TP DAILY, (Reported) Exemestane 25 Mg Tablet, 25 MG PO DAILY, (Reported) Famotidine 20 Mg Tablet, 20 MG PO DAILY PRN for GERD, (Reported) Fluticasone Propionate 16 Gm [place].susp, 2 SPRAYS NS HS, (Reported) Guaifenesin/Dextromethorphan 118 Ml Liquid, 5 ML PO EVERY 4-5 HOURS PRN for COUGH, (Reported) Hydroxyurea 500 Mg Capsule, 500 MG PO DAILY, (Reported) Levothyroxine Sodium 125 Mcg Tablet, 125 MCG PO DAILY@1000, (Reported) Loratadine 10 Mg Tablet, 10 MG PO DAILY PRN for RHINITIS, (Reported) Lorazepam 2 Mg/1 Ml Oral.conc, 1 MG PO Q3HR PRN for AGITATION, #30 Prescribed by: CARLIE DELEON on 01/25/17 1205 Magnesium Hydroxide 400 Mg/5 Ml Oral.susp, 30 ML PO DAILY PRN for CONSTIPATION, (Reported) Metoprolol Tartrate 50 Mg Tablet, 50 MG PO DAILY, (Reported) Morphine Sulfate 100 Mg/5 Ml Solution, 5 MG PO Q2H PRN for PAIN, #30 Prescribed by: CARLIE DELEON on 01/25/17 1205 Paroxetine HCl 20 Mg Tablet, 20 MG PO DAILY, (Reported) Polyethylene Glycol 3350 255 Gm Powder, 17 GM PO DAILY, (Reported) Potassium Chloride 10 Meq Tab.er.prt, 10 MEQ PO DAILY, (Reported) Pramipexole Di-HCl 0.5 Mg Tablet, 0.5 MG PO 1700, (Reported) Sennosides 8.6 Mg Tablet, 2 TAB PO HS, (Reported) Constitutional: see HPI Musculoskeletal: see HPI, other ((+) soft tissue redness and swelling LUE) Skin: see HPI, other ((+) erythema LUE) Past Fzpnhnv-Vsfdyb-Xtngst Hx Patient Social History Alcohol Use: Denies Use Recreational Drug Use: No Smoking Status: Unknown if Ever Smoked Recent Foreign Travel: No Contact w/Someone Who Travel: No Recent Infectious Disease Expo: No Recent Hopitalizations: No Immunizations Up To Date Date of Influenza Vaccine: Aug 11, 2016 Seasonal Allergies Seasonal Allergies: Yes Surgeries HX Surgeries: No (UNKNOWN) Respiratory Hx Respiratory Disorders: No Cardiovascular Hx Cardiac Disorders: Yes Cardiac Disorders: Hypertension Neurological Hx Neurological Disorders: Yes Neurological Disorders: Parkinson's Disease Reproductive System : No Hx Reproductive Disorders: No Sexually Transmitted Disease: No HIV/AIDS: No Genitourinary Hx Genitourinary Disorders: Yes Genitourinary Disorders: UTI-Chronic Gastrointestinal Hx Gastrointestinal Disorders: Yes Gastrointestinal Disorders: Gastroesophageal Reflux, Chronic Constipation Musculoskeletal Hx Musculoskeletal Disorders: Yes (FEMUR FX, RESTLESS LEG SYNDROME) Musculoskeletal Disorders: Fractures Endocrine Hx Endocrine Disorders: No Endocrine Disorders: Hypothyroidsim HEENT HX ENT Disorders: Yes Cancer Hx Cancer: No Psychosocial Hx Psychiatric Problems: Yes Behavioral Health Disorders: Anxiety, Depression Integumentary HX Skin/Integumentary Disorder: No Blood Transfusions Hx Blood Disorders: No Physical Exam Vital Signs Capillary Refill : Less Than 3 Seconds General Appearance: WD/WN, no apparent distress Cardiovascular: regular rate, rhythm Respiratory: no respiratory distress Elbow/Forearm: Left, ecchymosis, limited ROM, soft tissue tenderness, swelling (and erythema; is also warm to touch.) Wrist: Yes normal inspection Hand: normal inspection Neurologic/Tendon: normal sensation, normal motor functions, normal tendon functions, responds to pain Neurologic/Psychiatric: no motor/sensory deficits, alert, oriented x 3 Skin: warm/dry, other ((+) erythema (see above)) Lymphatic: no adenopathy Progress/Results/Core Measures Results/Orders My Orders Vital Signs/I&O Blood Pressure Mean: 116 Diagnostic Imaging Plain Films/CT/US/NM/MRI: forearm, hand, elbow (all negative for anything acute) Departure Impression Impression: Primary Impression: Cellulitis of left upper extremity Disposition: 03 XFER SNF Condition: Stable Departure-Patient Inst. Referrals: MISAEL BARRERA MD (PCP/Family) Primary Care Physician Patient Instructions: Cellulitis (Skin Infection), Adult (DC) JOSE VALIENTE DO Jan 21, 2017 12:25
[2017-01-21 13:29] LABS: BASOPHILS % (AUTO) 0 % (0-10); EOSINOPHILS % (AUTO) 0 % (0-10); LYMPHOCYTES % (AUTO) 7 % (12-44); MEAN CORPUSCULAR HEMOGLOBIN 37 PG (25-34); MEAN CORPUSCULAR HGB CONC 35 G/DL (32-36); MEAN CORPUSCULAR VOLUME 105 FL (80-99); MONOCYTES # (AUTO) 2.3 X 10^3 (0.0-1.0); MONOCYTES % (AUTO) 18 % (0-12); NEUTROPHILS # (AUTO) 9.7 X 10^3 (1.8-7.8); NEUTROPHILS % (AUTO) 74 % (42-75); PLATELET COUNT 329 10^3/uL (130-400); RED BLOOD COUNT 3.51 10^6/uL (4.35-5.85); RED CELL DISTRIBUTION WIDTH 18.7 % (10.0-14.5)
[2017-01-21 14:08] LABS: BAND NEUTROPHILS 1 %; BASOPHILS % (MANUAL) 0 %; EOSINOPHILS % (MANUAL) 0 %; LYMPHOCYTES % (MANUAL) 6 %; NEUTROPHILS % (MANUAL) 81 %
[2017-01-21 14:09] LABS: ANISOCYTOSIS SLIGHT; POIKILOCYTOSIS SLIGHT; TARGET CELLS SLIGHT
--- NOTE | 2017-01-21 14:09 | Diagnostic Imaging Report ---
EXAMINATION: Two views of the left humerus. INDICATION: New onset edema. FINDINGS: No fracture, dislocation, or radiopaque foreign body is seen. Surgical clips in the left axilla noted. IMPRESSION: No acute process. Dictated by: Dictated on workstation # [id number]
--- NOTE | 2017-01-21 14:11 | Diagnostic Imaging Report ---
EXAMINATION: AP and lateral views of the left forearm. INDICATION: New onset edema. FINDINGS: No fracture, dislocation, or radiopaque foreign body is seen. The proximal and distal joints appear grossly unremarkable. IMPRESSION: No osseous abnormality. Dictated by: Dictated on workstation # [id number]
--- NOTE | 2017-01-21 14:12 | Diagnostic Imaging Report ---
EXAMINATION: Two views of the left hand. INDICATION: Left hand pain. FINDINGS: There is advanced degenerative change seen at the carpal/metacarpal joints at the base of the thumb and at the scaphoid trapezium and the scaphoid trapezoid joints. There is degenerative subchondral sclerosis and mild subluxation also seen at the MCP joint of the left middle finger. There is osteopenia. No fracture, dislocation, or radiopaque foreign body is seen. IMPRESSION: Advanced degenerative changes. No acute process. Dictated by: Dictated on workstation # [id number]
[2017-01-21 14:48] LABS: ALANINE AMINOTRANSFERASE 28 U/L (0-55); ALBUMIN 3.1 G/DL (3.2-4.5); ANION GAP 8 MMOL/L (5-14); ASPARTATE AMINO TRANSFERASE 29 U/L (5-34); BILIRUBIN,TOTAL 1.5 MG/DL (0.1-1.0); BLOOD UREA NITROGEN 9 MG/DL (7-18); BUN/CREATININE RATIO 11; CALCIUM 8.5 MG/DL (8.5-10.1); CARBON DIOXIDE 23 MMOL/L (21-32); CHLORIDE 99 MMOL/L (98-107); CREATININE SERUM 0.84 MG/DL (0.60-1.30); GFR ESTIMATED > 60; GLUCOSE 114 MG/DL (70-105); POTASSIUM 4.5 MMOL/L (3.6-5.0); SODIUM 130 MMOL/L (135-145); hs C REACTIVE PROTEIN 5.43 MG/DL (0.00-0.50)
[2017-01-21] MEDS ORDERED: CEFD300C3 PO (15:18)
[2017-01-21] MEDS ORDERED: cefTRIAXone 1 GM (ROCEPHIN) VIAL ONE (15:33)
[2017-01-21] MEDS ORDERED: LIDOCAINE 1% INJ 20 ML (XYLOCAINE) VIAL ONE (15:34)
[2017-01-21] MEDS ORDERED: cefTRIAXone 1 GM (ROCEPHIN) VIAL IM ONE (15:45)
[2017-01-21] MEDS ORDERED: LIDOCAINE 1% INJ 20 ML (XYLOCAINE) VIAL INJ ONE (15:45)
[2017-01-21 16:03] VITALS: BP 156/90
[2017-01-22] MEDS ORDERED: EMOL226L TP (15:51)
[2017-01-22] MEDS ORDERED: GUAI-818 PO (15:51)
[2017-01-22] MEDS ORDERED: POTA10TA36 PO (15:51)
[2017-01-22] MEDS ORDERED: HYDR500C2 PO (15:51)
[2017-01-22] MEDS ORDERED: POLY255P PO (15:51)
== END 2017-01-21 16:03 ==
LOC: EDUNIT# 11:13 → ER 11:16
DX: L03.114 Cellulitis of left upper limb (principal); I10 Essential (primary) hypertension; G20 Parkinson's disease; Z79.82 Long term (current) use of aspirin; Z79.899 Other long term (current) drug therapy
CPT/HCPCS: 36415; 73060; 73090; 73130; 80053; 85007; 85027; 86141; 96372; 99282

== ENCOUNTER 2017-01-22 09:59 | Inpatient (IN) | payer MEDICARE, MEDICAID ==
[~2017-01-22] VITALS: Ht 154.9 cm; Wt 79.5 kg
[~2017-01-22 09:59] MED LIST changes: +CEFD300C3 PO
--- OUTSIDE RECORDS SUMMARY | 2017-01-22 10:06 | XMS REPORT | Continuity of Care Document ---
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 11/15/2016 TIN STOCK L Ot G20 PARKINSON'S DISEASE 11/15/2016 TIN STOCK Ot I10 ESSENTIAL (PRIMARY) HYPERTENSION 11/15/2016 TIN STOCK Ot R04.0 EPISTAXIS 11/15/2016 TIN STOCK Ot 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 12/25/2016 HAFSA JIN MD [...] Ot B17.9 ACUTE VIRAL HEPATITIS, UNSPECIFIED 12/25/2016 DAVNI PACE, HAFSA Winters Ot E03.9 HYPOTHYROIDISM, UNSPECIFIED [...] mean volume measurement 10.2 [foz_ us] 7.4-10.4 [id number] - 12/07/16 11:49 Serum or plasma urea [...] plasma albumin measurement (mass/volume) 2.4 g/dL 3.2-4.5 Complete blood count (CBC) with automated white blood cell (WBC) differential - 01/21/17 13:22 Blood leukocytes automated count (number/volume) 13.0 10*3/ uL 4.3-11.0 Blood erythrocytes automated count (number/volume) 3.51 10*6 /uL 4.35-5.85 Venous blood hemoglobin measurement (mass/volume) 12.8 g/dL 11.5-16.0 Blood hematocrit (volume fraction) 37 % 35-52 Automated erythrocyte mean corpuscular volume 105 [foz_us] 80-99 Automated erythrocyte mean corpuscular hemoglobin (mass per erythrocyte) 37 pg 25-34 Automated erythrocyte mean corpuscular hemoglobin concentration measurement ( mass/volume) 35 g/dL 32-36 Automated erythrocyte distribution width ratio 18.7 % 10.0-14.5 Automated blood platelet count (count/volume) 329 10*3/uL 130-400 Automated blood platelet mean volume measurement 11.0 [foz_ us] 7.4-10.4 Automated blood neutrophils/100 leukocytes 74 % 42-75 Automated blood lymphocytes/100 leukocytes 7 % 12-44 Blood monocytes/100 leukocytes 18 % 0-12 Automated blood eosinophils/100 leukocytes 0 % 0-10 Automated blood basophils/100 leukocytes 0 % 0-10 Blood neutrophils automated count (number/volume) 9.7 10*3 1.8-7.8 Blood lymphocytes automated count (number/volume) 1.0 10*3 1.0-4.0 Blood monocytes automated count (number/volume) 2.3 10*3 0.0-1.0 Automated eosinophil count 0.0 10*3/uL 0.0-0.3 Automated blood basophil count (count/volume) 0.0 10*3/uL 0.0-0.1 Blood manual differential performed detection - 01/21/17 13:22 Blood monocytes/100 leukocytes 12 % NRG Manual blood segmented neutrophils/100 leukocytes 81 % NRG Blood band neutrophils/100 leukocytes 1 % NRG Manual blood lymphocytes/100 leukocytes 6 % NRG Manual eosinophils/100 leukocytes in nose 0 % NRG Manual blood basophils/100 leukocytes 0 % NRG Blood anisocytosis detection by light microscopy SLIGHT NRG Blood macrocytes detection by light microscopy SLIGHT NRG Blood poikilocytosis detection by light microscopy SLIGHT NRG Blood target cells detection by light microscopy SLIGHT NRG Blood hypersegmented neutrophils detection by light microscopy SLIGHT NRG Comprehensive metabolic panel - 01/21/17 14:17 Serum or plasma sodium measurement (moles/volume) 130 mmol/ L 135-145 Serum or plasma potassium measurement (moles/volume) 4.5 mmol/L 3.6-5.0 Serum or plasma chloride measurement (moles/volume) 99 mmol/ L 98-107 Carbon dioxide 23 mmol/L 21-32 Serum or plasma anion gap determination (moles/volume) 8 mmol/L 5-14 Serum or plasma urea nitrogen measurement (mass/volume) 9 mg /dL 7-18 Serum or plasma creatinine measurement (mass/volume) 0.84 mg /dL 0.60-1.30 Serum or plasma urea nitrogen/creatinine mass ratio 11 NRG Serum or plasma creatinine measurement with calculation of estimated glomerular filtration rate > NRG Serum or plasma glucose measurement (mass/volume) 114 mg/dL 70-105 Serum or plasma calcium measurement (mass/volume) 8.5 mg/dL 8.5-10.1 Serum or plasma total bilirubin measurement (mass/volume) 1.5 mg/dL 0.1-1.0 Serum or plasma alkaline phosphatase measurement (enzymatic activity/volume) 136 U/L 40-136 Serum or plasma aspartate aminotransferase measurement (enzymatic activity/ volume) 29 U/L 5-34 Serum or plasma alanine aminotransferase measurement (enzymatic activity/volume ) 28 U/L 0-55 Serum or plasma protein measurement (mass/volume) 6.0 g/dL 6.4-8.2 Serum or plasma albumin measurement (mass/volume) 3.1 g/dL 3.2-4.5 Serum or plasma C reactive protein measurement (mass/volume) - 01/21/17 14:17 Serum or plasma C reactive protein measurement (mass/volume) 5.43 mg/dL 0.00-0.50 Encounters ACCT No. Visit Date/Time Discharge Status Pt. Type Provider Facility Loc./Unit Complaint [id number] 01/21/2017 11:16:00 2016 16:03:00 DIS Emergency JOSE VALIENTE DO [facility] ER LEFT HAND/ARM RED/SWOLLEN [id number] 12/23/2016 04:10:00 2016 11:35:00 DIS Outpatient HAFSA JIN MD [facility] 4TH DYSPNEA; SEPSIS; ACUTE HEPATITIS [id number] 11/13/2016 11:41:00 2016 13:54:00 DIS Emergency TIN STOCK [facility] ER NOSE BLEED [id number] 10/30/2016 00:04:00 2015 03:36:00 DIS Emergency MARY ROMERO DO [facility] ER AMS [id number] 09/02/2015 13:14:00 2014 23:59:59 CLS Outpatient MISAEL BARRERA MD [facility] RAD SCREENING [id number] 08/27/2014 13:42:00 2013 23:59:59 CLS Outpatient MISAEL BARRERA MD [facility] RAD ROUTINE [id number] 08/11/2014 15:32:00 2013 23:59:59 CLS Outpatient MISAEL BARRERA MD [facility] RAD COUGH X 2 WEEKS [id number] 01/28/2014 13:38:00 2013 00:01:00 DIS Outpatient NIKOLAI SANTILLAN MD [facility] ONC [id number] 02/18/2014 13:32:00 2013 23:59:59 CLS Outpatient NIKOLAI SANTILLAN MD [facility] RAD CA OF BREAST, ABD PAIN [id number] 09/09/2013 13:00:00 2012 00:01:00 DIS Outpatient NIKOLAI SANTILLAN MD [facility] ONC [id number] 09/15/2013 10:03:00 2012 23:59:59 CLS Outpatient NIKOLAI SANTILLAN MD [facility] RAD HX OF BREAST CA, ABD PAIN [id number] 08/27/2013 15:59:00 2012 23:59:59 CLS Outpatient OBINNA PACHECO MD [facility] RAD INCREASED PAIN [id number] 08/12/2013 14:24:00 2012 23:59:59 CLS Outpatient NIKOLAI SANTILLAN MD [facility] RAD BREAST CA [id number] 07/20/2013 13:32:00 2012 14:19:00 DIS Outpatient NIKOLAI SANTILLAN MD [facility] ONC [id number] 12/07/2016 11:32:00 ACT Outpatient MISAEL BARRERA MD [facility] RAD CONFUSION [id number] 02/25/2014 00:00:00 Document Registration [id number] 02/04/2013 13:24:00 Document Registration [id number] 01/27/2013 08:29:00 Document Registration
[2017-01-22 11:02] LABS: BASOPHILS % (AUTO) 0 % (0-10); EOSINOPHILS % (AUTO) 0 % (0-10); LYMPHOCYTES # (AUTO) 1.2 X 10^3 (1.0-4.0); LYMPHOCYTES % (AUTO) 10 % (12-44); MEAN CORPUSCULAR HEMOGLOBIN 37 PG (25-34); MEAN CORPUSCULAR HGB CONC 35 G/DL (32-36); MEAN CORPUSCULAR VOLUME 105 FL (80-99); MEAN PLATELET VOLUME 10.1 FL (7.4-10.4); MONOCYTES # (AUTO) 2.1 X 10^3 (0.0-1.0); MONOCYTES % (AUTO) 17 % (0-12); NEUTROPHILS # (AUTO) 8.9 X 10^3 (1.8-7.8); NEUTROPHILS % (AUTO) 73 % (42-75); PLATELET COUNT 334 10^3/uL (130-400); RED BLOOD COUNT 3.38 10^6/uL (4.35-5.85); RED CELL DISTRIBUTION WIDTH 18.3 % (10.0-14.5); WHITE BLOOD COUNT 12.3 10^3/uL (4.3-11.0)
--- NOTE | 2017-01-22 11:04 | Diagnostic Imaging Report ---
INDICATION: Swelling of left upper arm. Diagnosed with cellulitis. Comparison with CT scan of the chest on 12/23/2016 and portable chest on 12/24/2016. FINDINGS: Portable technique shows cardiomegaly. Lungs are well-aerated. There are no infiltrate. No evidence of pulmonary edema. Small pleural effusion present blunting of the costophrenic angle. There is prominence of the pulmonary arteries noted suggesting some pulmonary hypertension. No consolidated infiltrates have developed. IMPRESSION: 1. Cardiomegaly with no acute changes demonstrated when compared with previous exam. Pleural effusion again noted. Probable mild chronic congestive failure. 2. Fullness of the hilum which is likely secondary to pulmonary hypertension. Dictated by: Dictated on workstation # [id number]
--- NOTE | 2017-01-22 11:18 | ED General ---
General Chief Complaint: General Problems/Pain Stated Complaint: SWELLING/CELLULITIS WORSENING Nursing Triage Note: c/o worsening swelling to left upper arm and left left thorax/abd. Pt was seen in ER yesterday and diagnosed with cellulitis and given Rocephin 1 gm IM and Rx of Cefdinir. Nursing Sepsis Screen: No Definite Risk Source of Information: Patient, EMS, Snf Records, Old Records Exam Limitations: No Limitations History of Present Illness Time Seen by Provider: 10:00 Initial Comments This 86-year-old resident of [facility] presents to the emergency room with increasing edema of the left side including the left arm, abdomen, and lower extremity. She has a chronic wound on the left lower extremity with localized erythema. She was seen in this emergency room yesterday for the same problems. Condition has worsened. X-rays of the left upper extremity were performed yesterday. There was no evidence of injury. Patient was felt to have cellulitis and was given Rocephin in the ER and sent home on a prescription of Cefdinir. Symptoms have worsened. She is afebrile on assessment and not tachycardic. She has unusual pitting edema throughout the left side including her abdomen. She has some discomfort associated with the edema. Allergies and Home Medications Allergies Coded Allergies: levofloxacin (Unverified Allergy, Unknown, 10/30/16) Home Medications Acetaminophen 325 Mg Tablet 650 MG PO Q4H PRN PRN MILD PAIN/TEMP (Reported) TAKES 2 (325 MG) TABLETS Albuterol Sulfate 2.5 Mg/3 Ml Vial.neb 2.5 MG IH Q4H PRN PRN SHORTNESS OF BREATH (Reported) Aspirin 81 Mg Tab.chew 81 MG PO DAILY (Reported) Cefdinir 300 Mg Capsule #20 300 MG PO BID Prescribed by: JOSE VALIENTE on 01/21/17 1518 Chlorpheniramine Maleate 4 Mg Tablet 4 MG PO Q8H PRN PRN ABNORMALITY OF GAIT ( Reported) Emollient Combination No.40 226 Gm Lotion TP DAILY (Reported) Exemestane 25 Mg Tablet 25 MG PO DAILY (Reported) Famotidine 20 Mg Tablet 20 MG PO DAILY PRN PRN GERD (Reported) Fluticasone Propionate 16 Gm [place].susp 2 SPRAYS NS HS (Reported) Guaifenesin/Dextromethorphan 118 Ml Liquid 5 ML PO EVERY 4-5 HOURS PRN PRN COUGH (Reported) Hydroxyurea 500 Mg Capsule 500 MG PO DAILY (Reported) Levothyroxine Sodium 125 Mcg Tablet 125 MCG PO DAILY@1000 (Reported) Loratadine 10 Mg Tablet 10 MG PO DAILY PRN PRN RHINITIS (Reported) Lorazepam 2 Mg/1 Ml Oral.conc #30 1 MG PO Q3HR PRN PRN AGITATION Prescribed by: CARLIE DELEON on 01/25/17 1205 Magnesium Hydroxide 400 Mg/5 Ml Oral.susp 30 ML PO DAILY PRN PRN CONSTIPATION ( Reported) Metoprolol Tartrate 50 Mg Tablet 50 MG PO DAILY (Reported) Morphine Sulfate 100 Mg/5 Ml Solution #30 5 MG PO Q2H PRN PRN PAIN Prescribed by: CARLIE DELEON on 01/25/17 1205 Paroxetine HCl 20 Mg Tablet 20 MG PO DAILY (Reported) Polyethylene Glycol 3350 255 Gm Powder 17 GM PO DAILY (Reported) Potassium Chloride 10 Meq Tab.er.prt 10 MEQ PO DAILY (Reported) Pramipexole Di-HCl 0.5 Mg Tablet 0.5 MG PO 1700 (Reported) Sennosides 8.6 Mg Tablet 2 TAB PO HS (Reported) Constitutional: no symptoms reported EENTM: no symptoms reported Respiratory: no symptoms reported Cardiovascular: see HPI Gastrointestinal: no symptoms reported Genitourinary: no symptoms reported Musculoskeletal: see HPI Skin: see HPI Psychiatric/Neurological: Other (dementia at baseline) Hematologic/Lymphatic: No Symptoms Reported Past Rsntmoq-Bcgtfk-Slouwc Hx Patient Social History Alcohol Use: Denies Use Recreational Drug Use: No Smoking Status: Unknown if Ever Smoked Recent Foreign Travel: No Contact w/Someone Who Travel: No Recent Infectious Disease Expo: No Recent Hopitalizations: No Immunizations Up To Date Date of Influenza Vaccine: Aug 11, 2016 Seasonal Allergies Seasonal Allergies: Yes Surgeries HX Surgeries: No (UNKNOWN) Respiratory Hx Respiratory Disorders: Yes Respiratory Disorders: COPD (chronic respiratory failure with chronic hypoxia, 4-6 L/m home use) Cardiovascular Hx Cardiac Disorders: Yes (heart failure) Cardiac Disorders: Hypertension Neurological Hx Neurological Disorders: Yes (dysphagia) Neurological Disorders: Dementia, Parkinson's Disease Reproductive System Hx Reproductive Disorders: No Sexually Transmitted Disease: No HIV/AIDS: No Genitourinary Hx Genitourinary Disorders: Yes Genitourinary Disorders: UTI-Chronic Gastrointestinal Hx Gastrointestinal Disorders: Yes (dysphagia) Gastrointestinal Disorders: Gastroesophageal Reflux, Chronic Constipation, Hepatitis (acute viral hepatitis), Esophagitis Musculoskeletal Hx Musculoskeletal Disorders: Yes (FEMUR FX, RESTLESS LEG SYNDROME) Musculoskeletal Disorders: Fractures Endocrine Hx Endocrine Disorders: No Endocrine Disorders: Hypothyroidsim HEENT HX ENT Disorders: Yes Cancer Hx Cancer: No Psychosocial Hx Psychiatric Problems: Yes Behavioral Health Disorders: Anxiety, Depression Integumentary HX Skin/Integumentary Disorder: No Blood Transfusions Hx Blood Disorders: No Physical Exam Vital Signs Vital Sign - Last 12Hours 01/23/17 01/24/17 00:00 22:39 Temp 97.6 Pulse 102 Resp 18 B/P 110/64 Pulse Ox 90 O2 Delivery Nasal Cannula O2 Flow Rate 3.50 FiO2 40 Capillary Refill : Less Than 3 Seconds General Appearance: WD/WN Mild Distress HEENT: PERRL/EOMI Normal ENT Inspection Other (mucous membranes dry) Neck: Normal Inspection Respiratory: Lungs Clear Normal Breath Sounds No Accessory Muscle Use No Respiratory Distress Cardiovascular: Regular Rate, Rhythm No Murmur Other (anasarca with moderate to severe pitting edema of the left upper and lower extremity and left abdomen) Gastrointestinal: Normal Bowel Sounds Soft Other (pitting edema of the left abdomen with tenderness) Extremity: Other (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 Cyanotic appearing left foot with sluggish capillary refill. No palpable pedal pulses. Sensation appears intact. Moderate to severe pitting edema of the left lower and upper extremity. Mild pitting edema of the right upper and lower extremity.) Neurologic/Psychiatric: Alert No Motor/Sensory Deficits Other (Baseline deficits due to dementia) Skin: Normal Color Warm/Dry Erythema (left lower extremity) Other (see extremity exam) Focused Exam Lactic Acid Level Progress/Results/Core Measures Results/Orders Lab Results My Orders Orders-TRUE MACDONALD MD [employer] Ed (01/22/17 ) Medications Given in ED Vital Signs/I&O Blood Pressure Mean: 100 Progress Note #1: Time: 11:26 Progress Note Extremity edema is making vascular access for a difficult. Blood has been drawn and is being processed. Ultrasound studies are pending. Progress Note #2: Time: 13:52 Progress Note Access was eventually established by the PICC line team. Patient now has a midline access obtained with ultrasound guidance. Ultrasound of the left extremities were negative for significant problems. Case was reviewed with Dr. Vinson who suggested possibly some type of lymphatic obstruction in the chest or abdomen. CT of the chest, abdomen and pelvis was ordered. Case was reviewed with patient's son who states her mental status has declined over the last few days. He also reports recent urinary tract infection. A Cope was placed with UA obtained. Progress Note #3: Time: 15:10 Progress Note Significant urinary tract infection was identified by UA. A gram of Rocephin was ordered. Blood cultures have already been drawn. Lasix 40 mg IV was also ordered to start treating the fluid overload. Progress Note #4: Time: 16:[address] of the chest, abdomen and pelvis revealed no cause for the unilateral edema. On the CT, edema actually appears to be more diffuse throughout all tissues. An incidental finding of possible left lower lung pulmonary embolus was noted. This is embolus versus motion artifact. Imaging was discussed with Dr. Vinson. D-dimer was performed as a follow-up study and was significantly elevated. Patient was therefore started on Lovenox until a dedicated CT angiogram of the chest can be performed in 24-48 hours depending on renal function. Patient will be continued on Rocephin for suspected cellulitis of the left lower extremity and urinary tract infection. Plan has been reviewed with Dr. Michaels and family. A palliative care consult will be added to the bridging orders as patient has had a progressive decline in recent months. I would like the palliative care team to discuss the potential for hospice as patient's condition and prognosis would indicate she may need these services in the near future pending her response to treatment over the next few days. Patient's vascular access continue to be a problem. A peripheral line and a midline both failed/infiltrated. Patient has good neck veins and an EJ was successfully placed by Mando Ulrich. Diagnostic Imaging Diagonstic Imaging: Xray Plain Films/CT/US/NM/MRI: chest Comments Chest x-ray viewed by me and report reviewed. See report below: NAME: DANIELITO FREDERICK [facility] REC#: [id number] PT STATUS: REG ER : 1930 PHYSICIAN: TRUE MACDONALD MD ADMIT DATE: 01/22/17/ER Draft Date of Exam:01/22/17 CHEST 1 VIEW, AP/PA ONLY INDICATION: Swelling of left upper arm. Diagnosed with cellulitis. Comparison with CT scan of the chest on 12/23/2016 and portable chest on 12/24/2016. FINDINGS: Portable technique shows cardiomegaly. Lungs are well-aerated. There are no infiltrate. No evidence of pulmonary edema. Small pleural effusion present blunting of the costophrenic angle. There is prominence of the pulmonary arteries noted suggesting some pulmonary hypertension. No consolidated infiltrates have developed. IMPRESSION: 1. Cardiomegaly with no acute changes demonstrated when compared with previous exam. Pleural effusion again noted. Probable mild chronic congestive failure. 2. Fullness of the hilum which is likely secondary to pulmonary hypertension. Dictated on workstation # [id number] Dict: 01/22/17 1054 Trans: 01/22/17 1104 [facility] [id number] Interpreted by: GIANCARLO MACIEL MD Diagonstic Imaging: Ultrasound Comments NAME: [employer] REC#: [id number] PT STATUS: REG ER : 1930 PHYSICIAN: TRUE MACDONALD MD ADMIT DATE: 01/22/17/ER Signed Date of Exam: 01/22/17 US VENOUS UPPER EXT LT EXAMINATION: Left upper extremity venous duplex ultrasound. INDICATION: Left arm swelling. FINDINGS: The left internal jugular vein, subclavian vein, axillary vein, brachial vein, basilic, radial, and cephalic veins are all patent with color flow, compressibility, augmentation, and normal waveforms seen. The ulnar vein is not seen. IMPRESSION: The ulnar vein is not seen, possibly related to swelling. There is otherwise no evidence of DVT in the left upper extremity. Dictated by: Dictated on workstation # [id number] Dict: 01/22/17 1321 Trans: 01/22/17 1414 [id number] Interpreted by: NADER VINSON MD Electronically signed by:NADER VINSON MD 01/22/17 1416 Diagonstic Imaging: Ultrasound Plain Films/CT/US/NM/MRI: leg Comments NAME: [employer] REC#: [id number] PT STATUS: REG ER : 1930 PHYSICIAN: TRUE MACDONALD MD ADMIT DATE: 01/22/17/ER Signed Date of Exam: 01/22/17 US VENOUS LOWER EXT LT EXAMINATION: Left lower extremity duplex venous ultrasound. TECHNIQUE: DVT protocol. Multiple sonographic images with color Doppler and waveform interrogation were performed of the left lower extremity veins with compression and augmentation maneuvers. INDICATION: Left leg pain and swelling. FINDINGS: The left lower extremity veins from the groin to below the knee veins were examined with normal color-flow, compressibility and waveform demonstrated. The peroneal veins in the lower calf are not well seen. IMPRESSION: No evidence of DVT in the left lower extremity. Dictated by: Dictated on workstation # [id number] Dict: 01/22/17 1319 Trans: 01/22/17 1320 [facility] [id number] Interpreted by: NADER VINSON MD Electronically signed by:NADER VINSON MD 01/22/17 1323 Diagonstic Imaging: Ultrasound Plain Films/CT/US/NM/MRI: leg Comments NAME: DANIELITO FREDERICK [facility] REC#: [id number] PT STATUS: REG ER : 1930 PHYSICIAN: TRUE MACDONALD MD ADMIT DATE: 01/22/17/ER Signed Date of Exam: 01/22/17 US LEFT LOW EXT ARTERIAL [id number] EXAMINATION: Arterial duplex ultrasound of the left lower extremity. INDICATION: Pain and edema with leg discoloration. FINDINGS: There is color Doppler demonstrating patency of the left common femoral, SFA, profunda, popliteal, and posterior tibial arteries. The dorsalis pedis artery is not seen. There are triphasic waveforms seen in the common femoral and SFA. Biphasic waveforms are seen in the profunda. The popliteal artery demonstrates a widened spectral systolic waveform but is still triphasic. The posterior tibial waveform is monophasic at 54 cm/s. The urinary grayscale images demonstrate a slight intimal flap. The dorsalis pedis examination was difficult due to patient motion and is not seen; however, this could be secondary to the patient's inability to hold still. IMPRESSION: There is transition to monophasic waveforms with no focal high-grade stenosis identified by ultrasound in the femoropopliteal segments into the posterior tibial artery. The dorsalis pedis is not well evaluated due to limitation from patient motion. Dictated by: Dictated on workstation # [id number] Dict: 01/22/17 1324 Trans: 01/22/17 1352 [id number] Interpreted by: NADER VINSON MD Electronically signed by:NADER VINSON MD 01/22/17 1354 Diagonstic Imaging: CT Plain Films/CT/US/NM/MRI: chest, abdomen, pelvis Comments CT discussed with radiologist and report reviewed. See report below: NAME: DANIELITO FREDERICK [facility] REC#: [id number] PT STATUS: ADM IN : 1930 PHYSICIAN: TRUE MACDONALD MD ADMIT DATE: 01/22/17 Signed Date of Exam: 01/22/17 CT CHEST/ABDOMEN/PELVIS W PROCEDURE: CT chest, abdomen, and pelvis with contrast. TECHNIQUE: Multiple contiguous axial images were obtained through the chest, abdomen, and pelvis after the administration of intravenous contrast. INDICATION: Left arm and left leg swelling. Confusion. 100 mL of Omnipaque 350 is administered intravenously. FINDINGS: CT chest: There is diffuse edema in the subcutaneous tissues along the chest wall, more prominent in the left lateral aspect. There are bilateral small to moderate pleural effusions, larger on the left side. There is a moderate-sized hiatal hernia. The heart size is enlarged with particularly dilated right ventricle and right atrium. The thoracic aorta is dilated with the ascending aorta measuring 4.5 cm in caliber. The pulmonary arteries are also mildly dilated which may correlate with pulmonary hypertension. There is a suggestion of a filling defect in the lower lobe pulmonary artery on the right side. The pulmonary artery itself is dilated and due to the thicker routine CT chest protocol and superimposed breathing motion artifact, a followup confirmation CTA of the chest to ensure that this is a embolus rather than an enlarged hilar lymph node abutting the pulmonary artery is recommended. There is no mediastinal mass. There is no mediastinal or hilar lymphadenopathy. The osseous structures appear to demonstrate degenerative changes. CT abdomen and pelvis: There is edema in the mesentery, retroperitoneal and more prominent in the abdominal wall and subcutaneous tissues. The liver, the spleen, the pancreas, the adrenal glands appear unremarkable. Cholecystectomy clips are seen. The kidneys have symmetric enhancement and contrast excretion. There is mild atrophy of the renal parenchyma. Cope catheter decompresses the urinary bladder which has intraluminal air probably related to the Cope catheter insertion. There are beam hardening artifacts related to hip replacement on the left side and lumbar spine fusion hardware. The abdominal aorta is normal in caliber. No para-aortic significantly enlarged lymph node is seen. There is a calcification in the small bowel mesentery measuring 1.3 cm probably related to prior injury or infection. IMPRESSION: CT chest: 1. There is suggestion of a pulmonary embolism within the right lower lobe pulmonary artery. The artery itself is dilated and based on the routine protocol study and breathing motion artifact, clinical correlation and confirmation of the findings with dedicated PE protocol, CTA of the chest is recommended. 2. Bilateral pbnde-xs-wajvztoc pleural effusions, larger on the left side with associated lung atelectatic changes. 3. Subcutaneous and chest wall edema. There are particularly dilated right cardiac chambers, suggestive of right heart failure. CT abdomen and pelvis: Superficial and deep abdominal and pelvic tissue edema likely secondary to heart failure. No focal fluid collection or mass is seen. The findings were discussed with Dr. Macdonald by Dr. Vinson at time of dictation. Dictated by: Dictated on workstation # [id number] Dict: 01/22/17 1445 Trans: 01/23/17 1347 [place] [id number] Interpreted by: NADER VINSON MD Electronically signed by:NADER VINSON MD 01/23/17 1350 Departure Communication Time/Spoke to Admitting Phy: 15:42 Impression Impression: Primary Impression: Fluid overload Qualified Code: E87.70 - Fluid overload, unspecified Additional Impressions: Altered mental status Qualified Code: R41.82 - Altered mental status, unspecified Urinary tract infection Qualified Code: N39.0 - Urinary tract infection, site not specified Elevated d-dimer Cellulitis of leg, left Disposition: ADMITTED INPATIENT Condition: Improved Decision to Admit Reason: Admit from ER (General) Decision to Admit/Date: Jan 22, 2017 Time/Decision to Admit Time: 15:42 Departure-Patient Inst. Referrals: MISAEL BARRERA MD (PCP/Family) Primary Care Physician Scripts Lorazepam (Lorazepam Intensol)2 Mg/1 Ml Oral.conc1 Mg PO Q3HR PRN AGITATION #30 ML Prov:CARLIE DELEON DO 01/25/17 Morphine Sulfate (Morphine Sulfate Concentrate 20mg/ml)100 Mg/5 Ml Solution5 Mg PO Q2H PRN PAIN #30 ML Prov:CARLIE DELEON DO 01/25/17 TRUE MACDONALD MD Jan 22, 2017 11:17
[2017-01-22 11:21] LABS: ALANINE AMINOTRANSFERASE 29 U/L (0-55); ALBUMIN 3.3 G/DL (3.2-4.5); ANION GAP 13 MMOL/L (5-14); ASPARTATE AMINO TRANSFERASE 37 U/L (5-34); BILIRUBIN,TOTAL 1.5 MG/DL (0.1-1.0); BLOOD UREA NITROGEN 9 MG/DL (7-18); BUN/CREATININE RATIO 10; CALCIUM 8.9 MG/DL (8.5-10.1); CARBON DIOXIDE 19 MMOL/L (21-32); CHLORIDE 99 MMOL/L (98-107); CREATININE SERUM 0.88 MG/DL (0.60-1.30); GFR ESTIMATED > 60; GLUCOSE 100 MG/DL (70-105); POTASSIUM 4.9 MMOL/L (3.6-5.0); SODIUM 131 MMOL/L (135-145); TOTAL PROTEIN 6.7 G/DL (6.4-8.2); hs C REACTIVE PROTEIN 5.06 MG/DL (0.00-0.50)
[2017-01-22 11:57] LABS: THYROID STIMULATING HORMONE 0.89 UIU/ML (0.35-4.94)
--- NOTE | 2017-01-22 13:23 | Diagnostic Imaging Report ---
EXAMINATION: Left lower extremity duplex venous ultrasound. TECHNIQUE: DVT protocol. Multiple sonographic images with color Doppler and waveform interrogation were performed of the left lower extremity veins with compression and augmentation maneuvers. INDICATION: Left leg pain and swelling. FINDINGS: The left lower extremity veins from the groin to below the knee veins were examined with normal color-flow, compressibility and waveform demonstrated. The peroneal veins in the lower calf are not well seen. IMPRESSION: No evidence of DVT in the left lower extremity. Dictated by: Dictated on workstation # [id number]
--- NOTE | 2017-01-22 13:30 | Diagnostic Imaging Report ---
EXAMINATION: Left upper extremity venous duplex ultrasound. INDICATION: Left arm swelling. FINDINGS: The left internal jugular vein, subclavian vein, axillary vein, brachial vein, basilic, radial, and cephalic veins are all patent with color flow, compressibility, augmentation, and normal waveforms seen. The ulnar vein is not seen. IMPRESSION: The ulnar vein is not seen, possibly related to swelling. There is otherwise no evidence of DVT in the left upper extremity. Dictated by: Dictated on workstation # [id number]
--- NOTE | 2017-01-22 13:35 | Diagnostic Imaging Report ---
EXAMINATION: Arterial duplex ultrasound of the left lower extremity. INDICATION: Pain and edema with leg discoloration. FINDINGS: There is color Doppler demonstrating patency of the left common femoral, SFA, profunda, popliteal, and posterior tibial arteries. The dorsalis pedis artery is not seen. There are triphasic waveforms seen in the common femoral and SFA. Biphasic waveforms are seen in the profunda. The popliteal artery demonstrates a widened spectral systolic waveform but is still triphasic. The posterior tibial waveform is monophasic at 54 cm/s. The urinary grayscale images demonstrate a slight intimal flap. The dorsalis pedis examination was difficult due to patient motion and is not seen; however, this could be secondary to the patient's inability to hold still. IMPRESSION: There is transition to monophasic waveforms with no focal high-grade stenosis identified by ultrasound in the femoropopliteal segments into the posterior tibial artery. The dorsalis pedis is not well evaluated due to limitation from patient motion. Dictated by: Dictated on workstation # [id number]
[2017-01-22 13:50] LABS: BILIRUBIN,URINE NEGATIVE (NEGATIVE); KETONES,URINE 1+ (NEGATIVE); LEUKOCYTE ESTERASE ,URINE 3+ (NEGATIVE); NITRITE,URINE POSITIVE (NEGATIVE); PH,URINE 6 (5-9); PROTEIN,URINE 2+ (NEGATIVE); UROBILINOGEN,URINE 1 MG/DL (NORMAL)
[2017-01-22 14:05] LABS: SQUAMOUS EPITHELIAL CELL,UR 0-2 /HPF; WBC,URINE >100 /HPF
[2017-01-22] MEDS ORDERED: NS 100 ML (IVPB) BAG IV ONE (14:15)
[2017-01-22] MEDS ORDERED: IOHEXOL 350 MG/ML 100 ML (OMNIPAQUE 350) VIAL IV ONE (14:15)
[2017-01-22] MEDS ORDERED: cefTRIAXone INJECTION 1,000 MG in NS (IVPB) 50 ML IV ONE (15:15)
[2017-01-22] MEDS ORDERED: FUROSEMIDE 40 MG/4 ML INJ (LASIX) IVP ONE (15:15)
[2017-01-22] MEDS ORDERED: POLY255P PO (15:51)
[2017-01-22] MEDS ORDERED: HYDR500C2 PO (15:51)
[2017-01-22] MEDS ORDERED: EMOL226L TP (15:51)
[2017-01-22] MEDS ORDERED: GUAI-818 PO (15:51)
[2017-01-22] MEDS ORDERED: POTA10TA36 PO (15:51)
--- NOTE | 2017-01-22 16:18 | Diagnostic Imaging Report ---
PROCEDURE: CT chest, abdomen, and pelvis with contrast. TECHNIQUE: Multiple contiguous axial images were obtained through the chest, abdomen, and pelvis after the administration of intravenous contrast. INDICATION: Left arm and left leg swelling. Confusion. 100 mL of Omnipaque 350 is administered intravenously. FINDINGS: CT chest: There is diffuse edema in the subcutaneous tissues along the chest wall, more prominent in the left lateral aspect. There are bilateral small to moderate pleural effusions, larger on the left side. There is a moderate-sized hiatal hernia. The heart size is enlarged with particularly dilated right ventricle and right atrium. The thoracic aorta is dilated with the ascending aorta measuring 4.5 cm in caliber. The pulmonary arteries are also mildly dilated which may correlate with pulmonary hypertension. There is a suggestion of a filling defect in the lower lobe pulmonary artery on the right side. The pulmonary artery itself is dilated and due to the thicker routine CT chest protocol and superimposed breathing motion artifact, a followup confirmation CTA of the chest to ensure that this is a embolus rather than an enlarged hilar lymph node abutting the pulmonary artery is recommended. There is no mediastinal mass. There is no mediastinal or hilar lymphadenopathy. The osseous structures appear to demonstrate degenerative changes. CT abdomen and pelvis: There is edema in the mesentery, retroperitoneal and more prominent in the abdominal wall and subcutaneous tissues. The liver, the spleen, the pancreas, the adrenal glands appear unremarkable. Cholecystectomy clips are seen. The kidneys have symmetric enhancement and contrast excretion. There is mild atrophy of the renal parenchyma. Cope catheter decompresses the urinary bladder which has intraluminal air probably related to the Cope catheter insertion. There are beam hardening artifacts related to hip replacement on the left side and lumbar spine fusion hardware. The abdominal aorta is normal in caliber. No para-aortic significantly enlarged lymph node is seen. There is a calcification in the small bowel mesentery measuring 1.3 cm probably related to prior injury or infection. IMPRESSION: CT chest: 1. There is suggestion of a pulmonary embolism within the right lower lobe pulmonary artery. The artery itself is dilated and based on the routine protocol study and breathing motion artifact, clinical correlation and confirmation of the findings with dedicated PE protocol, CTA of the chest is recommended. 2. Bilateral yljfb-[id number]-pcairjgq pleural effusions, larger on the left side with associated lung atelectatic changes. 3. Subcutaneous and chest wall edema. There are particularly dilated right cardiac chambers, suggestive of right heart failure. CT abdomen and pelvis: Superficial and deep abdominal and pelvic tissue edema likely secondary to heart failure. No focal fluid collection or mass is seen. The findings were discussed with Dr. Macdonald by Dr. Vinson at time of dictation. Dictated by: Dictated on workstation # [id number]
[2017-01-22 17:35] VITALS: BP 150/91
[2017-01-22] MEDS: ENOXAPARIN 80 MG/0.8 ML (LOVENOX) SYR SC SCH (20:33)
[2017-01-22 21:05] VITALS: BP 129/88
[2017-01-23] VITALS: BP 110/64
[2017-01-23 04:00] VITALS: BP 135/66
[2017-01-23 06:04] LABS: BASOPHILS % (AUTO) 0 % (0-10); EOSINOPHILS % (AUTO) 0 % (0-10); LYMPHOCYTES % (AUTO) 8 % (12-44); MEAN CORPUSCULAR HEMOGLOBIN 36 PG (25-34); MEAN CORPUSCULAR HGB CONC 34 G/DL (32-36); MEAN CORPUSCULAR VOLUME 106 FL (80-99); MEAN PLATELET VOLUME 10.3 FL (7.4-10.4); MONOCYTES # (AUTO) 2.6 X 10^3 (0.0-1.0); MONOCYTES % (AUTO) 22 % (0-12); NEUTROPHILS % (AUTO) 69 % (42-75); PLATELET COUNT 289 10^3/uL (130-400); RED BLOOD COUNT 3.11 10^6/uL (4.35-5.85); RED CELL DISTRIBUTION WIDTH 18.6 % (10.0-14.5); WHITE BLOOD COUNT 11.5 10^3/uL (4.3-11.0)
[2017-01-23] MEDS: FUROSEMIDE 40 MG/4 ML INJ (LASIX) IVP SCH ×2 (06:08→15:52)
[2017-01-23] MEDS: KCL 10 MEQ TAB (MICRO K) PO SCH ×3 (06:08→15:52)
[2017-01-23 06:58] LABS: ALANINE AMINOTRANSFERASE 26 U/L (0-55); ALBUMIN 2.9 G/DL (3.2-4.5); ANION GAP 14 MMOL/L (5-14); ASPARTATE AMINO TRANSFERASE 30 U/L (5-34); BILIRUBIN,TOTAL 1.5 MG/DL (0.1-1.0); BLOOD UREA NITROGEN 9 MG/DL (7-18); BUN/CREATININE RATIO 11; CALCIUM 8.6 MG/DL (8.5-10.1); CARBON DIOXIDE 20 MMOL/L (21-32); CHLORIDE 101 MMOL/L (98-107); CREATININE SERUM 0.84 MG/DL (0.60-1.30); GFR ESTIMATED > 60; GLUCOSE 78 MG/DL (70-105); POTASSIUM 3.6 MMOL/L (3.6-5.0); SODIUM 135 MMOL/L (135-145); TOTAL PROTEIN 5.6 G/DL (6.4-8.2)
[2017-01-23 08:00] VITALS: BP 149/65
[2017-01-23] MEDS: ENOXAPARIN 80 MG/0.8 ML (LOVENOX) SYR SC SCH ×2 (08:01→21:46)
[2017-01-23] MEDS ORDERED: CATHETER FLUSH 10 ML SYR IV PRN (08:30)
[2017-01-23] MEDS ORDERED: cefTRIAXone 1 GM/NS 50 ML IVPB IV SCH ×2 (09:00)
[2017-01-23 12:00] VITALS: BP 165/81
[2017-01-23] MEDS ORDERED: PIPERACILLIN/TAZOBACTAM 4.5 GM/NS100 ML IVPB IV SCH ×2 (12:00)
[2017-01-23] MEDS: CEFEPIME 2 GM/NS 50 ML IVPB IV SCH ×4 (12:22→23:44)
[2017-01-23] MEDS: CATHETER FLUSH 10 ML SYR IV SCH ×2 (12:23→23:45)
[2017-01-23] MEDS ORDERED: ENOXAPARIN 100 MG/1 ML (LOVENOX) SYR SC SCH (13:00)
--- NOTE | 2017-01-23 13:01 | Consultation-Cardiology ---
HPI-Cardiology Cardiology Consultation Date of Consultation 01/23/17 Date of Admission Indication: Peripheral edema HPI 86 years old lady suffered from advanced dementia, was unable to provide any history, expressed that she has not been feeling well. Not sure what was wrong. Denied any chest pain or shortness of breath. Review of her record revealed that she has been having worsening of edema and erythema on the left side of her body mainly left lower exudate and left upper extremity. Patient was seen in the ER and given Lasix and a dose of Rocephin and started on oral antibiotic and sent home yesterday, return today for worsening of the edema and erythema. Ultrasound and CT scan were done. Did not show any DVT or arterial stenosis. There was suggestion of deep venous thrombosis and congestive heart failure. Patient is laying down in bed, comfortable, no [place] and dyspnea at this time, mild edema was noted. Home Medications & Allergies Allergies: Coded Allergies: levofloxacin (Unverified Allergy, Unknown, 10/30/16) Home Medication List Reviewed: Yes NAA-Bkexer-Rzinic Hx Patient Social History Alcohol Use: Denies Use Recreational Drug Use: No Smoking Status: Unknown if Ever Smoked Recent Foreign Travel: No Recent Infectious Disease Expo: No Recent Hopitalizations: No Physical Abuse Screen: No Sexual Abuse: No Immunizations Up To Date Date of Influenza Vaccine: Aug 11, 2016 Past Medical History Past medical history as discussed below Family Medical History Family Medical Hx Noncontributory to her current condition Family History: Patient reports no known family medical history. Constitutional: see HPI malaise weakness EENTM: no symptoms reported see HPI Respiratory: see HPI dyspnea on exertion short of breath Cardiovascular: see HPINo chest pain, edemaNo Hx of Intervention, No palpitations, No syncope, No vascular heart diseas, No other Gastrointestinal: no symptoms reported see HPI Genitourinary: no symptoms reported see HPI Musculoskeletal: see HPI joint pain joint swelling Skin: see HPI change in color Psychiatric/Neurological: No Symptoms Reported See HPI Reviewed Test Results Reviewed Test Results Lab Laboratory Tests Test 01/22/17 13:44 01/23/17 05:53 Range/Units Urine Bacteria MODERATE H /HPF Urine Bilirubin NEGATIVE NEGATIVE Urine Casts NONE /LPF Urine Clarity CLEAR Urine Color YELLOW Urine Crystals NONE /LPF Urine Culture Indicated YES Urine Glucose (UA) NEGATIVE NEGATIVE Urine Ketones 1+ H NEGATIVE Urine Leukocyte Esterase 3+ H NEGATIVE Urine Mucus NEGATIVE /LPF Urine Nitrite POSITIVE H NEGATIVE Urine Protein 2+ H NEGATIVE Urine RBC 5-10 H /HPF Urine RBC (Auto) 4+ H NEGATIVE Urine Specific [place] 1.020 1.016-1.022 Urine Squamous Epithelial Cells 0-2 /HPF Urine Urobilinogen 1 NORMAL MG/DL Urine WBC >100 H /HPF Urine pH 6 5-9 Alanine Aminotransferase (ALT/SGPT) 26 0-55 U/L Albumin 2.9 L 3.2-4.5 G/DL Alkaline Phosphatase 121 40-136 U/L Anion Gap 14 5-14 MMOL/L Aspartate Amino Transf (AST/SGOT) 30 5-34 U/L BUN/Creatinine Ratio 11 Basophils # (Auto) 0.0 0.0-0.1 10^3/uL Basophils (%) (Auto) 0 0-10 % Blood Urea Nitrogen 9 7-18 MG/DL Calcium Level 8.6 8.5-10.1 MG/DL Carbon Dioxide Level 20 L 21-32 MMOL/L Chloride Level 101 98-107 MMOL/L Creatinine 0.84 0.60-1.30 MG/DL Eosinophils # (Auto) 0.0 0.0-0.3 10^3/uL Eosinophils (%) (Auto) 0 0-10 % Estimat Glomerular Filtration Rate > 60 Glucose Level 78 70-105 MG/DL Hematocrit 33 L 35-52 % Hemoglobin 11.2 L 11.5-16.0 G/DL Lymphocytes # (Auto) 1.0 1.0-4.0 X 10^3 Lymphocytes (%) (Auto) 8 L 12-44 % Mean Corpuscular Hemoglobin 36 H 25-34 PG Mean Corpuscular Hemoglobin Concent 34 32-36 G/DL Mean Corpuscular Volume 106 H 80-99 FL Mean Platelet Volume 10.3 7.4-10.4 FL Monocytes # (Auto) 2.6 H 0.0-1.0 X 10^3 Monocytes (%) (Auto) 22 H 0-12 % Neutrophils # (Auto) 8.0 H 1.8-7.8 X 10^3 Neutrophils (%) (Auto) 69 42-75 % Platelet Count 289 130-400 10^3/uL Potassium Level 3.6 3.6-5.0 MMOL/L Red Blood Count 3.11 L 4.35-5.85 10^6/uL Red Cell Distribution Width 18.6 H 10.0-14.5 % Sodium Level 135 135-145 MMOL/L Total Bilirubin 1.5 H 0.1-1.0 MG/DL Total Protein 5.6 L 6.4-8.2 G/DL White Blood Count 11.5 H 4.3-11.0 10^3/uL Physical Exam Vital Signs Vital Sign - Last 12Hours 01/22/17 01/22/17 10:00 17:35 Temp 97.5 Pulse 76 Resp 20 B/P 129/85 Pulse Ox 95 O2 Delivery Nasal Cannula O2 Flow Rate 2.00 Capillary Refill : Less Than 3 Seconds General Appearance: WD/WN Mild Distress Eyes: Bilateral Eye EOMI, Bilateral Eye Normal Inspection, Bilateral Eye PERRL HEENT: PERRL/EOMI TMs Normal Normal ENT Inspection Pharynx Normal Neck: Normal Inspection Non Tender Supple Carotid Bruit Respiratory: Lungs Clear Normal Breath Sounds No Accessory Muscle Use No Respiratory Distress Crackles Cardiovascular: Regular Rate, Rhythm No Edema No Gallop No JVD No Murmur Other (Left lower except erythema and ulcer) Gastrointestinal: Normal Bowel Sounds No Organomegaly No Pulsatile Mass Non Tender Soft Back: Normal Inspection No CVA Tenderness No Vertebral Tenderness Extremity: Normal Capillary Refill Normal Inspection Normal Range of Motion Non Tender No Calf Tenderness No Pedal Edema Neurologic/Psychiatric: Alert No Motor/Sensory Deficits Normal Mood/Affect Skin: Normal Color Warm/Dry Lymphatic: No Adenopathy A/P-Cardiology Admission Diagnosis Peripheral edema Hypertension Dementia Cellulitis Assessment/Plan Left sided edema, worsening over the last few days, erythema, ultrasound showed good waveform, venous study did not show any DVT, questionable pulmonary embolism on CT scan. Patient is admitted and started on diuretics, noted to have elevated BNP, I will evaluate echocardiogram, use Lovenox empirically at this time. Cellulitis of the left lower extremity, receiving antibiotics. Generalized weakness and loss of energy. Hypothyroidism, followed and managed by primary care physician COPD Hypertension, restart metoprolol and monitor blood pressure Degenerative joint disease/osteoarthritis Advanced dementia Clinical Quality Measures DVT/VTE Risk/Contraindication: Risk Factor Score Per Nursin RFS Level Per Nursing on Admit: 4+=Very High ROSE CAMPOS MD Jan 23, 2017 13:01
[2017-01-23 16:00] VITALS: BP 104/60
--- NOTE | 2017-01-23 17:29 | History & Physical-Hospitalist ---
HPI History of Present Illness: HPI/Chief Complaint Mrs. Johnson is a frail 86-year-old white female who was noted by [facility] staff have progressive increase in swelling especially of the left upper extremity with erythema Saturday. She was sent to the emergency room where she was given some oral Lasix and sent back to the [facility]. It got progressively worse and she returned today. She was increasingly confused over her baseline state of dementia. History was taken from the diqitenz-ea-pih at the bedside. The patient was sleeping but arouses but unable to give any significant history. She did not appear to be in acute distress. The daughter- in-law reports that she has had problems with increased confusion over baseline she's had an infection in the past. She was admitted for was thought to be pneumonia 3 weeks ago. She has no significant decline over the past 3 months and is noted intermittent cyanosis over the past several weeks. She is not aware of any past history of thromboembolic disease. She has had a history of frequent urinary tract infection the past. In the emergency room CT scan of the chest abdomen and pelvis did reveal what appeared to be pulmonary embolus in the left pulmonary artery. DVT was not visualized in either lower extremity or left upper extremity the left ulna are vein was not well visualized. Patient denies current chest pain. Date Seen 01/23/17 Attending Physician Madi Michaels MD PCP Jacob Cheek MD Referring Physician Date of Admission Jan 22, 2017 at 16:14 Home Medications & Allergies Home Medications Reviewed patient Home Medication Reconciliation Form Allergies Coded Allergies: levofloxacin (Unverified Allergy, Unknown, 10/30/16) Past Hmtetvb-Xrkozq-Lkqpsg Hx Patient Social History Alcohol Use: Denies Use Recreational Drug Use: No Smoking Status: Unknown if Ever Smoked Physical Abuse Screen: No Sexual Abuse: No Recent Foreign Travel: No Contact w/other who traveled: No Recent Hopitalizations: No Recent Infectious Disease Expo: No Immunizations Up To Date Date of Influenza Vaccine: Aug 11, 2016 Seasonal Allergies Seasonal Allergies: Yes Surgeries HX Surgeries: No (UNKNOWN) Respiratory Hx Respiratory Disorders: Yes Cardiovascular Hx Cardiovascular Disorders: Yes (heart failure) Cardiac Disorders: Hypertension Neurological Hx Neurological Disorders: Yes (dysphagia) Neurological Disorders: Dementia, Parkinson's Disease Reproductive System Hx Reproductive Disorders: No Sexually Transmitted Disease: No HIV/AIDS: No Genitourinary Hx Genitourinary Disorders: Yes Genitourinary Disorders: UTI-Chronic Gastrointestinal Hx Gastrointestinal Disorders: Yes (dysphagia) Gastrointestinal Disorders: Gastroesophageal Reflux, Chronic Constipation, Hepatitis (acute viral hepatitis), Esophagitis Musculoskeletal Hx Musculoskeletal Disorders: Yes (FEMUR FX, RESTLESS LEG SYNDROME) Musculoskeletal Disorders: Fractures Endocrine Hx Endocrine Disorders: No Endocrine Disorders: Hypothyroidsim HEENT HX ENT Disorders: Yes Cancer Hx Cancer: No Psychosocial Hx Psychiatric Problems: Yes Behavioral Health Disorders: Anxiety, Depression Integumentary HX Skin/Integumentary Disorder: No Blood Transfusions Hx Blood Disorders: No Family Medical History Family Hx: Patient reports no known family medical history. Review of Systems ROS-Unable to Obtain: pt confused Constitutional: no symptoms reported Physical Exam Physical Exam Vital Signs Vital Sign - Last 12Hours 01/22/17 01/22/17 01/24/17 10:00 17:35 22:39 Temp 97.5 Pulse 76 Resp 20 B/P 129/85 Pulse Ox 95 O2 Delivery Nasal Cannula O2 Flow Rate 2.00 FiO2 40 Capillary Refill : Less Than 3 Seconds General Appearance: Other (confused and sedated) Neck: Supple Respiratory: Other (Decreased breath sounds posteriorly anteriorly the chest is clear there is absence of the left breast.) Cardiovascular: No Gallop No Murmur Other (Regular rate and rhythm with frequent premature disease and centimeters of JVD noted) Gastrointestinal: Normal Bowel Sounds No Organomegaly (Sensitivity precluded by obesity however) Other (hepatojugular reflux elicited) Extremity: Other (Plus edema of the left upper extremity with mild erythema and no induration is present 2+ edema of the right upper extremity with mild erythema there is no reaction to palpation. There is trace bilateral lower extremity edema with shallow ulcerations feet are warm but no pulses are appreciated) Results Results/Procedures Lab Assessment/Plan Admission Diagnosis 1. Suspected left pulmonary artery pulmonary embolism with pulmonary hypertension continue anticoagulation. 2. Urinary tract infection continue antibiotic therapy. 3. Probable congestive heart failure echocardiogram per Dr. Green pending. 4. Progressive dementia compatible with Alzheimer's 5. Poor prognosis continue DNR/DNI status. Clinical Quality Measures DVT/VTE Risk/Contraindication: Risk Factor Score Per Nursin RFS Level Per Nursing on Admit: 4+=Very High HAFSA JIN MD Jan 23, 2017 17:29
[2017-01-24] VITALS: BP 113/71
[2017-01-24] MEDS: CATHETER FLUSH 10 ML SYR IV SCH ×3 (06:41→22:35)
[2017-01-24] MEDS: FUROSEMIDE 40 MG/4 ML INJ (LASIX) IVP SCH ×2 (06:41→18:01)
[2017-01-24] MEDS: KCL 10 MEQ TAB (MICRO K) PO SCH ×2 (06:41→18:01)
[2017-01-24 08:00] VITALS: BP 131/65
--- NOTE | 2017-01-24 08:46 | Cardiology Progress Note ---
Subjective Subjective/Events-last exam Patient is in bed, feeling better, still confused, no new complaint Review of Systems General: No Chills, No Night Sweats, No Fatigue, No Malaise, No Appetite, No Other HEENT: No Head Aches, No Visual Changes, No Eye Pain, No Ear Pain, No Dysphasia , No Sinus Congestion, No Post Nasal Drip, No Sore Throat, No Other Pulmonary: No Dyspnea, No Cough, No Pleuritic Chest Pain, No Other Cardiovascular: No: Chest Pain, Edema, Lt Headedness, Orthopnea, Other, Palpitations, Paroxysmal Noc. Dyspnea Objective-Cardiology Exam Last Set of Vital Signs Vital Signs 01/24/17 01/24/17 00:00 08:17 Temp 98.4 Pulse 96 Resp 20 B/P 113/71 Pulse Ox 93 O2 Delivery Nasal Cannula O2 Flow Rate 3.50 Capillary Refill : Less Than 3 Seconds I&O Intake and Output 01/24/17 00:00 Intake Total 1340 ml Output Total 4700 ml Balance -3360 ml Intake Oral 1240 ml IV Total 100 ml Output Urine Total 4700 ml General: Alert, Cooperative HEENT: Atraumatic, PERRLA Neck: Supple, No JVD, No Thyromegaly Lungs: Clear to Auscultation, Normal Air Movement Heart: Regular Rate, Normal S1, Normal S2, No Murmurs Abdomen: Normal Bowel Sounds, Soft, No Tenderness, No Hepatosplenomegaly, No Masses Extremities: No Clubbing, No Cyanosis, No Edema, Normal Pulses, No Tenderness/ Swelling Skin: No Rashes, Other (erythema and ulcer on LLE) Neuro: Normal Speech, Normal Tone, Sensation Intact Psych/Mental Status: Mood NL A/P-Cardiology Admission Diagnosis Peripheral edema Hypertension Dementia Cellulitis Assessment/Plan Left sided edema, worsening over the last few days, erythema, ultrasound showed good waveform, venous study did not show any DVT, questionable pulmonary embolism on CT scan. Patient is admitted and started on diuretics, noted to have elevated BNP, Echo showed normal EF with severe pulmonary HTN Severe pulmonary hypertension, PA pressure 55 mmHg, questionable pulmonary embolism. No DVT seen, maintained on Lovenox. If tolerated consider oral anticoagulation Cellulitis of the left lower extremity, receiving antibiotics, consider consult wound care Generalized weakness and loss of energy. Hypothyroidism, followed and managed by primary care physician COPD Hypertension, continue to monitor BP Degenerative joint disease/osteoarthritis Advanced dementia Clinical Quality Measures DVT/VTE Risk/Contraindication: Risk Factor Score Per Nursin RFS Level Per Nursing on Admit: 4+=Very High ROSE CAMPOS MD Jan 24, 2017 08:46
--- NOTE | 2017-01-24 08:48 | Cardiology Progress Note ---
Subjective Subjective/Events-last exam Patient is sitting up eating breakfast, poor historian. Denies any pain or shortness of breath at this time. Review of Systems General: No Night Sweats, No Fatigue, No Malaise HEENT: No Visual Changes, No Dysphasia Pulmonary: No Dyspnea, No Cough Cardiovascular: No: Chest Pain, Palpitations Gastrointestinal: No: Abdominal Pain, Nausea, Vomiting Musculoskeletal: : leg painNo: back pain, neck pain Neurological: : Confusion: Weakness Objective-Cardiology Exam Last Set of Vital Signs Vital Signs 01/24/17 01/24/17 00:00 08:17 Temp 98.4 Pulse 96 Resp 20 B/P 113/71 Pulse Ox 93 O2 Delivery Nasal Cannula O2 Flow Rate 3.50 Capillary Refill : Less Than 3 Seconds I&O Intake and Output 01/24/17 00:00 Intake Total 1340 ml Output Total 4700 ml Balance -3360 ml Intake Oral 1240 ml IV Total 100 ml Output Urine Total 4700 ml General: Alert, Cooperative HEENT: Atraumatic, PERRLA Neck: Supple, No JVD, No Thyromegaly Lungs: Clear to Auscultation, Normal Air Movement Heart: Regular Rate, Normal S1, Normal S2, No Murmurs Abdomen: Normal Bowel Sounds, Soft, No Tenderness, No Hepatosplenomegaly, No Masses Extremities: No Clubbing, No Cyanosis, No Edema, Normal Pulses, No Tenderness/ Swelling Skin: No Rashes, Other (erythema and ulcer on LLE) Neuro: Normal Speech, Normal Tone, Sensation Intact Psych/Mental Status: Mood NL A/P-Cardiology Admission Diagnosis Peripheral edema Hypertension Dementia Cellulitis Assessment/Plan Left sided edema, worsening over the last few days, erythema, ultrasound showed good waveform, venous study did not show any DVT, questionable pulmonary embolism on CT scan. Patient is admitted and started on diuretics, noted to have elevated BNP, Echo showed normal EF with severe pulmonary HTN Severe pulmonary hypertension, PA pressure 55 mmHg, questionable pulmonary embolism. No DVT seen, maintained on Lovenox. If tolerated consider oral anticoagulation Cellulitis of the left lower extremity, receiving antibiotics, consider consult wound care Generalized weakness and loss of energy. Hypothyroidism, followed and managed by primary care physician COPD Hypertension, continue to monitor BP Degenerative joint disease/osteoarthritis Advanced dementia Clinical Quality Measures DVT/VTE Risk/Contraindication: Risk Factor Score Per Nursin RFS Level Per Nursing on Admit: 4+=Very High SHAY WEST Jan 24, 2017 08:47
--- NOTE | 2017-01-24 08:48 | Progress Note-Hospitalist ---
Subjective HPI/CC On Admission Mrs. Johnson is a frail 86-year-old white female who was [facility] staff have progressive increase in swelling especially of the left upper extremity with erythema Saturday. She was sent to the emergency room where she was given some oral Lasix and [facility]. It got progressively worse and she returned today. She was increasingly confused over her baseline state of dementia. History was taken from the mdhtumdr-iq-gyb at the bedside. The patient was sleeping but arouses but unable to give any significant history. She did not appear to be in acute distress. The daughter- in-law reports that she has had problems with increased confusion over baseline she's had an infection in the past. She was admitted for was thought to be pneumonia 3 weeks ago. She has no significant decline over the past 3 months and is noted intermittent cyanosis over the past several weeks. She is not aware of any past history of thromboembolic disease. She has had a history of frequent urinary tract infection the past. In the emergency room CT scan of the chest abdomen and pelvis did reveal what appeared to be pulmonary embolus in the left pulmonary artery. DVT was not visualized in either lower extremity or left upper extremity the left ulna are vein was not well visualized. Patient denies current chest pain. Date Seen 01/24/17 Subjective/Events-last exam Patient less confused sitting up getting radiate breakfast. She denies pain or itching. She also denies chest pain or shortness of breath. Objective Exam Vital Signs Vital Sign - Last 12Hours 01/22/17 01/22/17 01/24/17 10:00 17:35 22:39 Temp 97.5 Pulse 76 Resp 20 B/P 129/85 Pulse Ox 95 O2 Delivery Nasal Cannula O2 Flow Rate 2.00 FiO2 40 Capillary Refill : Less Than 3 Seconds General Appearance: Chronically ill Other (Which more alert than yesterday sitting up getting ready to eat breakfast voicing no complaints) Respiratory: Other (Crease breath sounds posteriorly anteriorly the chest is clear.) Cardiovascular: Regular Rate, Rhythm No Gallop No Murmur Extremity: Other (Plus edema of the upper extremities significant only lasts than yesterday erythema has diminished there is no tenderness to palpation) Assessment/Plan Assessment and Plan Assess & Plan/Chief Complaint 1. Possible left-sided pulmonary embolism. Continue Lovenox. 2. Possible left upper extremity cellulitis improved responding to cefepime continue. 3. At least bronchitis versus pneumonia also responding to cefepime continue. 4. Progressive dementia compatible with Alzheimer's HAFSA JIN MD Jan 24, 2017 08:48
[2017-01-24] MEDS: ENOXAPARIN 80 MG/0.8 ML (LOVENOX) SYR SC SCH ×2 (09:43→22:35)
[2017-01-24] MEDS: CEFEPIME 2 GM/NS 50 ML IVPB IV SCH ×2 (09:43)
[2017-01-24] MEDS: meTOprolol TARTRATE 50 MG (LOPRESSOR) TAB PO SCH (09:43)
[2017-01-24] MEDS: ASPIRIN 81 MG CHEW (CHILDREN'S ASA) PO SCH (09:43)
[2017-01-24 16:00] VITALS: BP 108/53
[2017-01-24 22:15] VITALS: BP 105/56
[2017-01-25] VITALS: BP 127/79
[2017-01-25] MEDS ORDERED: OXYMETAZOLINE (AFRIN) 0.05% NA 15 ML BTL STA (00:14)
[2017-01-25] MEDS ORDERED: PHENYLEPHRINE 0.25% NASAL SPR (NEO-SYNEPHRINE) 15 ML NS ONE (00:19)
--- NOTE | 2017-01-25 06:45 | Progress Note-Standard ---
Standard Progress Note Progress Notes/Assess & Plan Progress/Assessment & Plan ENT-Corin Called to see patietn with persistent left sided anterior nosebleed. Had been on oxygen canula-switched to face tent with onset of bleeding patient also on lovenox-one dose held nosebleed stopped with use of afrin early this am-hasnt bled since Pund-ntlx-maycivvq present bilaterally where oxygen canula had sat-old blood bilaterally no active bleedign seen-nothing that can be cauterized present IMP: Left Anterior NOsebleed Rec: 1. Discussed options iwth patient-going to try and manage without packign the nose 2. Increase moisture in form of ayr gel tid to both sides of nose-cont with face tent 3. may restart lovenox if needed-up to hospitalist 4. If rebleeds -two squirts of 1/2% neosynephrne to each side of the nose and hold for ten minutes-if that is happening repeatedly then call and we can place a pack in the nose to stop it 5. would expect slow gradual resolustion as we keep the nose moist and the crusitng is resolved along with the old blood 6. Call if she has recurrent problems Final Diagnosis Left Anterior Epistaxis JHONY MACHADO MD Jan 25, 2017 6:45 am
[2017-01-25] MEDS: FUROSEMIDE 40 MG/4 ML INJ (LASIX) IVP SCH (06:46)
[2017-01-25] MEDS: CATHETER FLUSH 10 ML SYR IV SCH ×2 (06:46→14:21)
[2017-01-25] MEDS: KCL 10 MEQ TAB (MICRO K) PO SCH (06:46)
--- NOTE | 2017-01-25 07:12 | ECHOCARDIOGRAPHY REPORT ---
PROCEDURE PHYSICIAN: ROSE CAMPOS DATE OF PROCEDURE: 01/23/2017 TWO DIMENSIONAL ECHOCARDIOGRAM REPORT PRIMARY PHYSICIAN: OTHER PHYSICIAN: REFERRING PHYSICIAN: Dr. Cheek ORDERING PHYSICIAN: INDICATION FOR THE PROCEDURE: MEASUREMENTS DERIVED VALUES LV DIAMETER (LAX) NORMALS NORMALS Diastolic 2.3 (3.6-5.2) Eject. Fract. 45% (60%+/-6%) Systolic (2.3-3.9) Diastolic Vol. % Shortening (0.22-0.42) Systolic Vol. Aortic Root IVS THICKNESS Diastolic 1.3 (0.6-1.1) LVPW THICKNESS Diastolic 1.3 (0.6-1.1) LA DIAMETER Systolic 4.6 (2.1-3.7) FINDINGS: 1. Technical quality is good. 2. The left ventricle is normal in size with moderate left ventricular hypertrophy noted diffusely. Systolic function is mildly reduced. Estimated ejection fraction 45%. 3. The left atrium is dilated. No clot or thrombus were seen within the left atrium. 4. The right atrium and right ventricle are normal in size. No clot or thrombus were seen within the right. 5. Mitral valve is calcified, with mild mitral regurgitation noted by color Doppler flow. No mitral valve prolapse. No mitral valve stenosis. 6. Aortic valve is calcified. No significant aortic stenosis or regurgitation was seen. 7. Tricuspid valve is normal in morphology with mild tricuspid regurgitation noted by color Doppler flow. Doppler across tricuspid valve estimated pulmonary artery pressure of 84+ right atrial pressure. 8. Pulmonic valve is functioning normally. 9. No pericardial effusion. CONCLUSION: 1. Moderate left ventricular hypertrophy. Systolic function is mildly reduced. Estimated ejection fraction 45%. 2. Calcified mitral valve with mild mitral regurgitation. Mild tricuspid regurgitation. 3. Aortic valve sclerosis. No aortic stenosis. 4. Dilated left atrium. 5. Severe pulmonary hypertension with estimated pulmonary artery pressure of 90 mmHg. Job ID: [id number] Dictated Date: 01/24/2017 14:53:00 Medical Technicians Date: 01/25/2017 07:06:59 / tracy
[2017-01-25] MEDS: ASPIRIN 81 MG CHEW (CHILDREN'S ASA) PO SCH (10:50)
[2017-01-25] MEDS: meTOprolol TARTRATE 50 MG (LOPRESSOR) TAB PO SCH (10:50)
[2017-01-25] MEDS: CEFEPIME 2 GM/NS 50 ML IVPB IV SCH ×2 (11:02)
[2017-01-25] MEDS ORDERED: LORazepam INJ 2 MG/ML (ATIVAN) VIAL IVP PRN (11:15)
[2017-01-25] MEDS ORDERED: ONDANSETRON 4 MG/2 ML (SDV) Z0FRAN IVP PRN (11:15)
[2017-01-25] MEDS ORDERED: ARTIFICIAL TEARS OINT (LACRI-LUBE) 3.5 GM TUBE OU PRN (11:15)
[2017-01-25] MEDS ORDERED: ARTIFICAL TEARS 0.4 ML UNIT DOSE (REFRESH PLUS) OU PRN (11:15)
[2017-01-25] MEDS ORDERED: GLYCOPYRROLATE 0.2 MG/ML (ROBINUL) 2 ML VIAL IV PRN (11:15)
[2017-01-25] MEDS ORDERED: morphine INJ 4 MG/ML 1 ML (VIAL/SYRINGE) IV PRN (11:15)
[2017-01-25] MEDS ORDERED: RT-ALBUTEROL/IPRATROPIUM 3 ML (DUONEB) VIAL INH PRN (11:15)
[2017-01-25] MEDS ORDERED: BISACODYL 10 MG SUPP (DULCOLAX) PR PRN (11:15)
[2017-01-25] MEDS ORDERED: ACETAMINOPHEN 650 MG SUPP (TYLENOL) PR PRN (11:15)
[2017-01-25] MEDS ORDERED: SALIVA STIMULANT MOUTH SPRAY (BIOTENE) 1.5 OZ MM PRN (11:15)
[2017-01-25] MEDS: SOD CHL GEL 0.5 OZ (AYR SALINE NASAL GEL) TUBE TOP SCH ×2 (11:20→12:56)
--- NOTE | 2017-01-25 12:00 | Progress Note-Hospitalist ---
Progress Note HPI/CC on Admission Mrs. Johnson is a frail 86-year-old white female who was noted by halfway staff have progressive increase in swelling especially of the left upper extremity with erythema Saturday. She was sent to the emergency room where she was given some oral Lasix and sent back to the halfway. It got progressively worse and she returned today. She was increasingly confused over her baseline state of dementia. History was taken from the [id number] at the bedside. The patient was sleeping but arouses but unable to give any significant history. She did not appear to be in acute distress. The daughter- in-law reports that she has had problems with increased confusion over baseline she's had an infection in the past. She was admitted for was thought to be pneumonia 3 weeks ago. She has no significant decline over the past 3 months and is noted intermittent cyanosis over the past several weeks. She is not aware of any past history of thromboembolic disease. She has had a history of frequent urinary tract infection the past. In the emergency room CT scan of the chest abdomen and pelvis did reveal what appeared to be pulmonary embolus in the left pulmonary artery. DVT was not visualized in either lower extremity or left upper extremity the left ulna are vein was not well visualized. Patient denies current chest pain. Progress Notes/Assess & Plan Date Seen 01/25/17 Diagonsis/Assessment & Plan HPI: Called by RN at midnight 0300 due to epistatic. Now pt is bleeding from lower leg wound and appears to be end of life. Pharmacy Review: Pt will go comfort care. Patient Interview: Pt states she is doing okay currently. Pt denies pain currently. Pt denies having a bloody nose for a while. Physical exam was stable. Pt states her PCP is Dr. Cheek and pt lives at [facility]. Pt denies needing anything currently. Family Interview: Pt has been declining the last few months. Over the last few days pt has been declining more rapidly. Pt heart is enlarged and there may be blood clot in her lungs. Pt family agrees to Palliative care. Assessment: Presumed pulmonary embolus with now widespread bleeding and end-of-life stage Congestive heart failure with elevated BNP unrecoverable Dementia Severe epistaxis Left leg wound Plan: [facility] Hospice Moved to halfway when available Scribed by Sj Molnia under the direct supervision of Dr. Deleon. CARLIE DELEON DO Jan 25, 2017 12:00
[2017-01-25] MEDS ORDERED: LORA2ORA PO ×2 (12:05)
[2017-01-25] MEDS ORDERED: MORP100S3 PO ×2 (12:05)
[2017-01-25] MEDS ORDERED: morphine (ROXINOL) 10 MG/0.5 ML oral conc 0.5 ML ONE (14:56)
[2017-01-25] MEDS ORDERED: HYDROmorphone (DILAUDID) 2 MG/ML VIAL IVP PRN (15:00)
[2017-01-25] MEDS: morphine (ROXINOL) 10 MG/0.5 ML oral conc 0.5 ML PO PRN ×2 (15:01→15:56)
--- NOTE | 2017-01-28 11:44 | Physician Query ---
PQ-Further Specificity Admission/Discharge Admission Date: Jan 22, 2017 at 16:14 Discharge Date: Jan 25, 2017 at 20:45 The medical record reflects the following clinical scenario: History/Risk Factors: History of heart failure and severe pulmonary hypertension. Clinical Findings: Fluid overload on admission per ED. BNP 1241.7 CT Abd and pelvis read as," superficial and deep abdominal edema and pelvic tissue edema likely secondary to heart failure. Echo- EF 45% Discharge summary per Dr. Cowan -Congestive heart failure with elevated BNP Unrecoverable. Treatment: 40 mg Lasix IVP Echocardiogram - systolic function is mildly reduced with EF 45% and severe pulmonary hypertension Question: Can you further specify Congestive Heart Failure per the clinical indicators above? Please document below. 1. a. Acute systolic congestive heart failure. b. Chronic systolic congestive heart failure. c. Acute diastolic congestive heart failure. d. Chronic diastolic congestive heart failure. e. Acute on chronic systolic congestive heart failure. f. Acute on chronic diastolic congestive heart failure. 2. CHF with elevated BNP unrecoverable. 3. Other, with explanation of the clinical findings. 4. Clinically undetermined, no explanation for the clinical findings. PHYSICIAN RESPONSE Can you specify per above: Other, explanation/clinical finding ( e. Acute on chronic systolic congestive heart failure.) Please remember a lack of response to the above will prompt a phone page by [facility]/ coding staff. In responding to this query, please exercise your independent professional judgment. The purpose of this communication is to more accurately reflect the complexity of your patients condition. The fact that a question is asked does not imply that any particular answer is desired or expected. Thank you for your timely response to this clarification. Requestors name: Delphine Domingo [facility] Phone # ext [phone] or [phone] THIS PHYSICIAN QUERY FORM IS A PERMANENT PART OF THE MEDICAL RECORD DELPHINE DOMINGO Jan 28, 2017 11:44 ROSE CAMPOS MD Jan 28, 2017 17:46
--- NOTE | 2017-02-06 11:54 | Discharge Summary-Hospitalist ---
Diagnosis/Chief Complaint Date of Admission Jan 22, 2017 at 16:14 Date of Discharge Jan 25, 2017 at 20:45 Admission Diagnosis 1. Suspected left pulmonary artery pulmonary embolism with pulmonary hypertension continue anticoagulation. 2. Urinary tract infection continue antibiotic therapy. 3. Probable congestive heart failure echocardiogram per Dr. Green pending. 4. Progressive dementia compatible with Alzheimer's 5. Poor prognosis continue DNR/DNI status. Discharge Diagnosis Assessment: Presumed pulmonary embolus with now widespread bleeding and end-of-life stage Congestive heart failure with elevated BNP unrecoverable Dementia Severe epistaxis Left leg wound HPI: Called by RN at midnight 0300 due to epistatic. Now pt is bleeding from lower leg wound and appears to be end of life. Pharmacy Review: Pt will go comfort care. Patient Interview: Pt states she is doing okay currently. Pt denies pain currently. Pt denies having a bloody nose for a while. Physical exam was stable. Pt states her PCP is Dr. Cheek and pt lives at [facility]. Pt denies needing anything currently. Family Interview: Pt has been declining the last few months. Over the last few days pt has been declining more rapidly. Pt heart is enlarged and there may be blood clot in her lungs. Pt family agrees to Palliative care. Assessment: Presumed pulmonary embolus with now widespread bleeding and end-of-life stage Congestive heart failure with elevated BNP unrecoverable Dementia Severe epistaxis Left leg wound Plan: [facility] care Hospice Moved to halfway when available Scribed by Sj Molina under the direct supervision of Dr. Deleon. Reason Hospital Visit/Course Mrs. Johnson is a frail 86-year-old white female who was noted by halfway staff have progressive increase in swelling especially of the left upper extremity with erythema Saturday. She was sent to the emergency room where she was given some oral Lasix and sent back to the halfway. It got progressively worse and she returned today. She was increasingly confused over her baseline state of dementia. History was taken from the [id number] at the bedside. The patient was sleeping but arouses but unable to give any significant history. She did not appear to be in acute distress. The daughter- in-law reports that she has had problems with increased confusion over baseline she's had an infection in the past. She was admitted for was thought to be pneumonia 3 weeks ago. She has no significant decline over the past 3 months and is noted intermittent cyanosis over the past several weeks. She is not aware of any past history of thromboembolic disease. She has had a history of frequent urinary tract infection the past. In the emergency room CT scan of the chest abdomen and pelvis did reveal what appeared to be pulmonary embolus in the left pulmonary artery. DVT was not visualized in either lower extremity or left upper extremity the left ulna are vein was not well visualized. Patient denies current chest pain. Hospital course: patient had a standard hospital course after presumed pulmonary embolism versus early pneumonia versus bronchitis but she took a turn for the worse began having bleeding from epistaxis that was severe in nature requiring a consult to Dr. Coombs but overall she was showing signs of major end- of-life processes multisystem organ failure and family and I met with palliative care nurse who were very reasonable and transitioned her to comfort care and she with family at the bedside without complication. Discharge Summary Discharge Physical Examination Allergies: Coded Allergies: levofloxacin (Unverified Allergy, Unknown, 10/30/16) Hospital Course Labs (last 24 hrs) Microbiology 01/22/17 Blood Culture - Final, Complete No growth 01/22/17 Urine Culture - Final, Complete Discharge Home Medications: Active Scripts Active Lorazepam Intensol (Lorazepam) 2 Mg/1 Ml Oral.conc 1 Mg PO Q3HR PRN Morphine Sulfate Concentrate 20mg/ml (Morphine Sulfate) 100 Mg/5 Ml Solution 5 Mg PO Q2H PRN Cefdinir 300 Mg Capsule 300 Mg PO BID Reported Robitussin Cough-Chest Dm Liq (Guaifenesin/Dextromethorphan) 118 Ml Liquid 5 Ml PO EVERY 4-5 HOURS PRN Potassium Chloride 10 Meq Tab.er.prt 10 Meq PO DAILY Polyethylene Glycol 3350 255 Gm Powder 17 Gm PO DAILY Hydroxyurea 500 Mg Capsule 500 Mg PO DAILY Cetaphil (Emollient Combination No.40) 226 Gm Lotion TP DAILY Albuterol Sulfate 2.5 Mg/3 Ml Vial.neb 2.5 Mg IH Q4H PRN Fluticasone Propionate 16 Gm Glidden.susp 2 Sprays NS HS Loratadine 10 Mg Tablet 10 Mg PO DAILY PRN Pepcid (Famotidine) 20 Mg Tablet 20 Mg PO DAILY PRN Milk of Magnesia (Magnesium Hydroxide) 400 Mg/5 Ml Oral.susp 30 Ml PO DAILY PRN Paroxetine HCl 20 Mg Tablet 20 Mg PO DAILY Metoprolol Tartrate 50 Mg Tablet 50 Mg PO DAILY Levothyroxine Sodium 125 Mcg Tablet 125 Mcg PO DAILY@1000 Acetaminophen 325 Mg Tablet 650 Mg PO Q4H PRN TAKES 2 (325 MG) TABLETS Chlorpheniramine Maleate 4 Mg Tablet 4 Mg PO Q8H PRN Aspirin 81 Mg Tab.chew 81 Mg PO DAILY Exemestane 25 Mg Tablet 25 Mg PO DAILY Mirapex (Pramipexole Di-HCl) 0.5 Mg Tablet 0.5 Mg PO 1700 Senna (Sennosides) 8.6 Mg Tablet 2 Tab PO HS Instructions to patient/family Please see electonic discharge instructions given to patient. Clinical Quality Measures DVT/VTE Risk/Contraindication: Risk Factor Score Per Nursin RFS Level Per Nursing on Admit: 4+=Very High CARLIE DELEON DO Feb 06, 2017 11:54
== END 2017-01-25 20:45 | disposition expired | DRG 175 ==
LOC: EDUNIT# 09:59 → ER 10:00 → 4TH 16:14
PROVIDERS: ADMIT Internal Medicine; ATTEND Internal Medicine
DX: I26.99 Other pulmonary embolism without acute cor pulmonale (principal); I11.0 Hypertensive heart disease with heart failure; I50.23 Acute on chronic systolic (congestive) heart failure; N39.0 Urinary tract infection, site not specified; J96.10 Chronic respiratory failure, unspecified whether with hypoxia or hypercapnia; J44.0 Chronic obstructive pulmonary disease with (acute) lower respiratory infection; J18.9 Pneumonia, unspecified organism; Z66 Do not resuscitate; Z51.5 Encounter for palliative care; L03.116 Cellulitis of left lower limb; L03.114 Cellulitis of left upper limb; L97.929 Non-pressure chronic ulcer of unspecified part of left lower leg with unspecified severity; I27.2 Other secondary pulmonary hypertension; R04.0 Epistaxis; G20 Parkinson's disease; G25.81 Restless legs syndrome; G30.9 Alzheimer's disease, unspecified; F02.80 Dementia in other diseases classified elsewhere, unspecified severity, without behavioral disturbance, psychotic disturbance, mood disturbance, and anxiety; E03.9 Hypothyroidism, unspecified; F41.9 Anxiety disorder, unspecified; F32.9 Major depressive disorder, single episode, unspecified; K21.9 Gastro-esophageal reflux disease without esophagitis; Z99.81 Dependence on supplemental oxygen
CPT/HCPCS: 36415; 51702; 71010; 71260; 73060; 73090; 73130; 74177; 80053; 81000; 83880; 84439; 84443; 85007; 85025; 85027; 85379; 86141; 87040; 87088; 93306; 93926; 94760; 96372; 96374; 96375; 99282